=== PATIENT | female | born 1960 | race Caucasian/White ===

== ENCOUNTER → 2017-01-20 | Outpatient (CLI) | payer MEDICARE, MEDICAID | LOC: CARD 11:45 | PROVIDERS: ATTEND Physician Assistant | DX: G89.4 Chronic pain syndrome (principal); M79.604 Pain in right leg; B19.20 Unspecified viral hepatitis C without hepatic coma; Z72.0 Tobacco use | CPT/HCPCS: 93306 ==

== ENCOUNTER → 2017-03-04 | Outpatient (CLI) | payer MEDICARE, MEDICAID ==
[~2017-03-04] MED LIST: CATHETER FLUSH 10 ML SYR IV PRN; CLON0.5T3; Flexeril; GABA-488; HYDR-3820; QUET200T57; REGADENOSON 0.4 MG/5 ML SYR (LEXISCAN) IV ONE; SERT100T8
[2017-03-04 13:27] VITALS: BP 118/79
[2017-03-04 13:30] VITALS: BP 120/75
--- NOTE | 2017-03-05 04:59 | STRESS TEST ---
DATE OF SERVICE: 03/04/2017 LEXISCAN MYOVIEW STRESS TEST REPORT Baseline heart rate is 57. Baseline blood pressure 118/79. Baseline EKG is sinus rhythm with no ischemic changes. SUMMARY: The patient was injected with 10.05 mCi of technetium-99 Myoview and the resting images were obtained. Then, the patient received 0.4 mg of Lexiscan followed by 30.4 mCi of technetium-99 Myoview. Throughout the test, there were no EKG changes. The resting and stressed images were reviewed and compared in the short axis, horizontal long axis and vertical long axis views. Review of the images showed diaphragmatic attenuation affecting the quality of the images. There is no significant ischemia or infarction was seen. SSS is 3, SDS 3, TID value 1.07. On the gated images, the left ventricle appeared to be normal size with normal contractility. Calculated ejection fraction is 71%. CONCLUSION: 1. The patient tolerated Lexiscan well. 2. Diaphragmatic attenuation with typical male pattern. No significant ischemia or infarction on SPECT images. 3. Normal left ventricular size with normal contractility. Calculated ejection fraction is 71%. Job ID: [id number] DocumentID: [id number] Dictated Date: 03/04/2017 16:17:18 Entry Level Civil Engineer Date: 03/04/2017 17:43:07 Dictated By: RAYMOND CORTEZ MD
== END ==
LOC: CARD 12:22
PROVIDERS: ATTEND Physician Assistant
DX: G89.4 Chronic pain syndrome (principal); M79.604 Pain in right leg; B19.20 Unspecified viral hepatitis C without hepatic coma; Z72.0 Tobacco use
CPT/HCPCS: 78452; 93017

== ENCOUNTER 2017-04-22 12:19 | Emergency (ER) | payer MEDICARE, MEDICAID ==
[~2017-04-22] VITALS: Ht 167.6 cm; Wt 81.6 kg
--- OUTSIDE RECORDS SUMMARY | 2017-04-22 12:27 | XMS REPORT ---
Author Author [facility] Organization [facility] Address Unknown Phone Unavailable Care Team Providers Care Escrow Representative Name Role Phone Non-Staff, Physician PCP Unavailable Encounter [id number] Date(s): 02/02/17 - 02/02/[address] [address] Attending Physician: Jeff Owen MD Vital Signs No data available for this section Problem List Condition Effective Dates Status Health Status Informant Anxiety(Confirmed) Active Back pain(Confirmed) Active Chicken pox Active H/O(Confirmed) Depression(Confirmed Active ) Difficulty 2005 Inactive performing bathing activity(Confirmed) Difficulty 2005 Inactive performing dressing activity(Confirmed) Edema bilateral Active lower ext(Confirmed) Hepatitis Active C(Confirmed) Impaired 07/01/06 Inactive mobility(Confirmed) Measles Active H/O(Confirmed) Mumps H/O(Confirmed) Active Sleep apnea Active treated(Confirmed) Tobacco Active patient user(Confirmed)1, 2 1Updated by Discern Expert based on Social History Documentation 2Added by Discern Expert based on Social History Documentation Allergies, Adverse Reactions, Alerts Substance Reaction Severity Status Ceclor Hives Active clindamycin Unknown Active corticosteroids mood swings, Active severe headache nausea vomiting erythromycin Hives Active Levaquin Hives Active Naprosyn Rash Active penicillins Rash Active Hives Swelling Soma Headache Active Ultram Hives Active Medications No Known Medications Results No data available for this section Immunizations Given and Recorded Vaccine Date Status Refusal Reason influenza virus vaccine 05/12/16 Given Procedures No data available for this section Social History No data available for this section Assessment and Plan No data available for this section
--- OUTSIDE RECORDS SUMMARY | 2017-04-22 12:27 | XMS REPORT ---
Author Author [facility] Organization [facility] Address Unknown Phone Unavailable Care Team Providers Care Track Welder Name Role Phone No Family Physician, . PCP Unavailable Encounter [id number] Date(s): 12/22/16 - 12/22/[address] [address] Attending Physician: Jeff Owen MD Vital Signs [...] Mumps H/O(Confirmed) Active Sleep apnea Active treated(Confirmed) Diagnosis Diagnosis Type Effective Dates Health Status Clinical Service Informant Acute URI Discharge 12/22/16 Diagnosis Allergies, Adverse Reactions, Alerts Substance Reaction Severity [...]
--- OUTSIDE RECORDS SUMMARY | 2017-04-22 12:27 | XMS REPORT ---
Author Author [facility] Organization [facility] Address Unknown Phone Unavailable Care Team Providers Care Airplane Cleaner Name Role Phone No Family Physician, . PCP Unavailable Encounter [id number] Date(s): 01/02/17 - 01/02/[address] [address] Attending Physician: Kasia Forrester APRN Vital Signs No data available for this [...] Sleep apnea Active treated(Confirmed) Tobacco Active patient user(Confirmed)1 1Added by Discern Expert based on Social History Documentation Diagnosis Diagnosis Type Effective Dates Health Status Clinical Service Informant Upper respiratory Discharge 01/02/17 infection Diagnosis Persistent cough Discharge 01/02/17 for 3 weeks or Diagnosis longer Allergies, Adverse Reactions, Alerts Substance Reaction Severity [...]
--- OUTSIDE RECORDS SUMMARY | 2017-04-22 12:27 | XMS REPORT | Continuity of Care Document ---
Author Author [employer] Organization [facility] Address Unknown Phone Unavailable Care Team Providers Care Doll Eye Setter Name Role Phone [employer] Unavailable Unavailable Problems Problem Status Onset Date Classification Date Reported Comments Source Spider bite wound (disorder) 2017 Diagnosis 2016 [facility] Chest pain (finding) 2016 Diagnosis 02/07/2017 [facility] Upper respiratory infection (disorder) 01/02/2017 Diagnosis 01/06/2017 [facility] Persistent cough (finding) 01/02/2017 Diagnosis 2016 [facility] Acute upper respiratory infection (disorder) 12/22/2016 Diagnosis 12/26/2016 [facility] Backache with radiation (disorder) 06/23/2016 Diagnosis 06/27/2016 [facility] Low back pain (disorder) 06/2016 Diagnosis 06/27/2016 [facility] Pain in left leg (finding) 06/16/2016 Diagnosis 2015 [facility] Gastroesophageal reflux disease (disorder) 05/12/2016 Diagnosis 05/16/2016 [facility] Anxiety (finding) Active Problem 02/06/2017 [facility], [facility] Backache (finding) Active Problem 02/06/2017 [facility], [facility] Varicella (disorder) Active Problem 02/06/2017 [facility], [facility] Depressive disorder (disorder) Active Problem 02/06/2017 [facility], [facility] Edema (finding) Active Problem 02/06/2017 [facility], [facility] Viral hepatitis C (disorder) Active Problem 02/06/2017 [facility], [facility] Measles (disorder) Active Problem 02/06/2017 [facility], [facility] Mumps (disorder) Active Problem 02/06/2017 [facility], [facility] Sleep apnea (finding) Active Problem 02/06/2017 [facility], [facility] Tobacco user (finding) Active Problem 02/06/2017 Updated by Discern Expert based on Social History Documentation Added by Discern Expert based on Social History Documentation [facility] Medications Medication Details Route Status Patient Instructions Ordering Provider Order Date Source No Known Medications No known medications Active [facility] Allergies, Adverse Reactions, Alerts Substance Category Reaction Severity Reaction type Status Date Reported Comments Source Cefaclor Assertion Hives Drug allergy [facility] Clindamycin Assertion Unknown Drug allergy [facility] corticosteroids Assertion mood swings,, severe headache, nausea, vomiting Drug allergy [facility] Erythromycin Assertion Hives Drug allergy [facility] Levofloxacin Assertion Hives Drug allergy [facility] Naproxen Assertion Cutaneous eruption (morphologic abnormality) Propensity to adverse reactions to substance [facility], [facility] penicillins Assertion Cutaneous eruption (morphologic abnormality), Hives, Swelling Drug allergy [facility], [facility] Carisoprodol Assertion Headache (finding) Drug allergy [facility], [facility] Tramadol Assertion Hives Drug allergy [facility] cefaclor drug allergy Hives Allergy Active [facility] clindamycin drug allergy Unknown (qualifier value) Allergy Active [facility] corticosteroids drug allergy mood swings,, severe headache, nausea, vomiting Allergy [facility] erythromycin drug allergy Hives Allergy [facility] levofloxacin drug allergy Hives Allergy [facility] naproxen propensity to adverse reactions to substance Cutaneous eruption (morphologic abnormality) Adverse Reaction Active [facility] penicillins drug allergy Cutaneous eruption (morphologic abnormality), Hives, Swelling Allergy Active [facility] carisoprodol drug allergy Headache (finding) Allergy Active [facility] tramadol drug allergy Hives Allergy [facility] Immunizations Immunization Date Given Site Status Last Updated Comments Source influenza virus vaccine 05/12/2016 Right Deltoid influenza virus vaccine K[facility] No data available for this section No data available for this section [facility] Results Vital Signs Encounters Location Location Details Encounter Type Encounter Number Reason For Visit Attending Provider ADM Date DC Date Status Source [facility] [id number] Outpatient [id number] Boone Cummins 02/25/2012 [facility] [id number] Clinic ( Outpatient) [id number] Sudeep Turner 08/29/2013 Active [facility] [id number] Clinic ( Outpatient) [id number] Ajith Schneiderkylah 09/01/2013 Active [facility] Cancel/No Show [id number] Ajith Schneiderkylah 04/22/2016 04/22/2016 [facility] [id number] Jeff Owen 05/12/2016 05/13/2016 [facility] [id number] Jeff Owen 06/16/2016 06/17/2016 [facility] [id number] Jeff Owen 06/23/2016 06/24/2016 [facility] [id number] Jeff Owen 12/22/2016 12/23/2016 [facility] [id number] Kasia Forrester 01/02/2017 01/03/2017 [facility] [id number] Emergency [id number] Doug Valle 02/02/2017 02/02/2017 Active [facility] [id number] Jeff Owen 02/02/2017 02/03/2017 [facility] [id number] Jeff Owen 2017 02/21/2017 [facility] Procedures Procedure Code Date Perfomer Comments Source biopsy of pancreas 2015 [facility] No data available for this section [facility] Plan of Care Social History Assessment and Plan Family History Value Date Source Advance Directives Order Name Results Value Date Source
--- OUTSIDE RECORDS SUMMARY | 2017-04-22 12:28 | XMS REPORT ---
Author Author [facility] Address Unknown Phone Unavailable Care Team Providers Care Daycare Manager Name Role Phone Non-Staff, Physician PCP Unavailable Encounter [id number] Date(s): 02/20/17 - 02/20/[address] [address]- Attending Physician: Jeff Owen MD Vital Signs [...] Effective Dates Health Status Clinical Service Informant Spider bite Discharge 02/20/17 Diagnosis Allergies, Adverse Reactions, Alerts Substance Reaction [...]
--- OUTSIDE RECORDS SUMMARY | 2017-04-22 12:28 | XMS REPORT ---
Author Author TANG AMARO Organization [facility] Address [address] [place] [address] Care Team Providers Care Program Services Planner Name Role Phone TANG AMARO Unavailable PROBLEMS Type Condition ICD9-CM Code [id number] Code Onset Dates Condition Status SNOMED Code Problem Chronic hepatitis C without hepatic coma B18.2 Active 225177514 Problem Severe episode of recurrent major depressive disorder, without psychotic features F33.2 Active 58121201 Problem Moderate episode of recurrent major depressive disorder F33.1 Active 945943058 Problem Anxiety F41.9 Active 28716395 Problem CAD in [place] artery I25.10 Active 3285989512937 Problem Marijuana abuse F12.10 Active 52019829 Problem Other chronic pain G89.29 Active 44376250 Problem Generalized anxiety disorder F41.1 Active 25472081 Problem Psychosis, unspecified psychosis type F29 Active 42124379 Problem Chronic pain syndrome G89.4 Active 102922076 ALLERGIES Unknown Allergies SOCIAL HISTORY No smoking Hx information available PLAN OF CARE VITAL SIGNS MEDICATIONS Medication Instructions Dosage Frequency Start Date End Date Duration Status Hydrocodone-Acetaminophen 7.5-325 MG Orally every 6 hrs 1 tablet as needed 6h Jun, 2 weeks Active Clonazepam 1 MG Orally Twice a day 1 tablet 12h May, 14 days Active RESULTS No Results PROCEDURES No Known procedures IMMUNIZATIONS No Known Immunizations
--- OUTSIDE RECORDS SUMMARY | 2017-04-22 12:28 | XMS REPORT ---
Author Author [facility] Organization [facility] Address Unknown Phone Unavailable Care Team Providers Care Upper Cutter Machine Name Role Phone Non-Staff, Physician PCP Unavailable Encounter [id number] Date(s): 02/02/17 - 02/03/17 [facility] [phone] [place] [place] [id number] [facility] [[email or web address]] Discharge Disposition: Home Attending Physician: Doug Valle MD Admitting Physician: Doug Valle MD Referring Physician: Non-Staff, Physician Vital Signs No data available for this [...] Effective Dates Health Status Clinical Service Informant Other chest pain Discharge 02/02/17 Emergency Diagnosis medicine Allergies, Adverse Reactions, Alerts Substance Reaction Severity Status Ceclor Hives Active clindamycin Unknown Active corticosteroids mood swings, Active severe headache nausea vomiting erythromycin Hives Active Levaquin Hives Active Naprosyn Rash Active penicillins Rash Active Hives Swelling Soma Headache Active Ultram Hives Active Medications No data available for this section Results No data available for this section Immunizations Given and Recorded Vaccine Date Status Refusal Reason influenza virus vaccine 05/12/16 Given Procedures No data available for this section Social History No data available for this section Assessment and Plan No data available for this section
--- OUTSIDE RECORDS SUMMARY | 2017-04-22 12:28 | XMS REPORT | Clinical Summary ---
Author Author [facility] Organization [facility] Address Unknown Phone Unavailable Care Team Providers Care Fruit Sprayer Name Role Phone PCP Unavailable Source Comments Some departments are not documenting in the electronic medical record. If you do not see the information that you expected, contact Release of Information in the Health Information Management department at [phone] for further assistance in locating additional records.[facility] Allergies Not on File Current Medications Not on file Active Problems Not on file Social History Tobacco Use Types Packs/Day Years Used Date Never Assessed Sex Assigned at Date Recorded Not on file Last Filed Vital Signs Not on file Plan of Treatment Health Maintenance Due Date Last Done Comments HEPATITIS C SCREENING 1960 PHYSICAL (COMPREHENSIVE) 02/19/1967 EXAM PERTUSSIS VACCINE 02/19/1971 TETANUS VACCINE 02/19/1977 CERVICAL CANCER SCREENING 02/19/1990 BREAST CANCER SCREENING 2000 COLORECTAL CANCER 02/19/2010 SCREENING INFLUENZA VACCINE 04/12/2017 Results Not on filefrom Last 3 Months
--- OUTSIDE RECORDS SUMMARY | 2017-04-22 12:28 | XMS REPORT ---
Author Author TANG AMARO Organization [facility] Address [address] [place] [address] Care Team Providers Care Map Drafter Name Role Phone TANG AMARO Unavailable PROBLEMS Type Condition ICD9-CM Code XUG29-CA Code Onset Dates Condition Status SNOMED Code Problem Chronic hepatitis C without hepatic coma B18.2 Active 717387450 Problem Severe episode of recurrent major depressive disorder, without psychotic features F33.2 Active 22774297 Problem Moderate episode of recurrent major depressive disorder F33.1 Active 909692882 Problem Anxiety F41.9 Active 37322854 Problem CAD in [place] artery I25.10 Active 6879590279482 Problem Marijuana abuse F12.10 Active 98220895 Problem Other chronic pain G89.29 Active 87298435 Problem Generalized anxiety disorder F41.1 Active 16017242 Problem Psychosis, unspecified psychosis type F29 Active 70184235 Problem Chronic pain syndrome G89.4 Active 470107314 ALLERGIES No Information SOCIAL HISTORY Never Assessed PLAN OF CARE VITAL SIGNS MEDICATIONS Medication Instructions Dosage Frequency Start Date End Date Duration Status Hydrocodone-Acetaminophen 10-325 MG Orally every 8 hours 1 tablet as needed 8h 15 Jun, 2016 3 Oct, 2016 2 weeks Active RESULTS No Results PROCEDURES No Known procedures IMMUNIZATIONS No Known Immunizations MEDICAL (GENERAL) HISTORY Type Description Date Medical History Heart disease Medical History Pancreatic mass Medical History COPD Medical History Hepatitis C Medical History Arthritis Medical History osteoporsis Medical History Brain Tumor Surgical History back surgery 4 times Surgical History brain surgery for tumor Surgical History shoulder surgery Surgical History knee surgery Surgical History cyst removal Surgical History c section Surgical History biopsy on pancreas 05/21/16 Surgical History Hysterectomy Surgical History oophrectomy Surgical History adhesion surgery Surgical History Tonsilectomy and Adnoidectomy Surgical History [place] Teeth Surgical History All teeth pulled for dentures Surgical History Right rotator cuff surgery Hospitalization History child Hospitalization History surgeries listed above Hospitalization History Mulitple fractures on bilateral legs Hospitalization History Right arm and wrist fracture Hospitalization History Broken Ribs
--- OUTSIDE RECORDS SUMMARY | 2017-04-22 12:28 | XMS REPORT ---
Author Author TANG AMARO Organization [facility] Address [address] [place] [address] Care Team Providers Care Security Police Officer Name Role Phone TANG AMARO Unavailable PROBLEMS Type Condition ICD9-CM Code KAN55-SY Code Onset Dates Condition Status SNOMED Code Problem Anxiety F41.9 Active 92347197 Problem Generalized anxiety disorder F41.1 Active 67272797 Problem Moderate episode of recurrent major depressive disorder F33.1 Active 181194696 Problem Chronic hepatitis C without hepatic coma B18.2 Active 891033758 Problem CAD in [place] artery I25.10 Active 1808170273349 Problem Marijuana abuse F12.10 Active 75758102 Problem Other chronic pain G89.29 Active 07384541 Problem Severe episode of recurrent major depressive disorder, without psychotic features F33.2 Active 80109253 Problem Psychosis, unspecified psychosis type F29 Active 02461705 Problem Chronic pain syndrome G89.4 Active 667254682 ALLERGIES Unknown Allergies SOCIAL HISTORY No smoking Hx information available PLAN OF CARE VITAL SIGNS MEDICATIONS Medication Instructions Dosage Frequency Start Date End Date Duration Status Clonazepam 1 MG Orally Twice a day 1 tablet 12h May, 14 days Active Hydrocodone-Acetaminophen 7.5-325 MG Orally every 6 hrs 1 tablet as needed 6h Jun, 2 weeks Active RESULTS No Results PROCEDURES No Known procedures IMMUNIZATIONS No Known Immunizations
--- OUTSIDE RECORDS SUMMARY | 2017-04-22 12:28 | XMS REPORT ---
Author Author TANG AMARO Organization [facility] Address [address] [place] [address] Care Team Providers Care Forge Helper Name Role Phone TANG AMARO Unavailable PROBLEMS Type Condition ICD9-CM Code GAB26-TR Code Onset Dates Condition Status SNOMED Code Problem Chronic hepatitis C without hepatic coma B18.2 Active 858936293 Problem Severe episode of recurrent major depressive disorder, without psychotic features F33.2 Active 06260046 Problem Moderate episode of recurrent major depressive disorder F33.1 Active 882540694 Problem Anxiety F41.9 Active 15605485 Problem CAD in [place] artery I25.10 Active 6858972874340 Problem Marijuana abuse F12.10 Active 14959149 Problem Other chronic pain G89.29 Active 12299195 Problem Generalized anxiety disorder F41.1 Active 21764254 Problem Psychosis, unspecified psychosis type F29 Active 15285526 Problem Chronic pain syndrome G89.4 Active 342876655 ALLERGIES No Information SOCIAL HISTORY Never Assessed PLAN OF CARE VITAL SIGNS MEDICATIONS Medication Instructions Dosage Frequency Start Date End Date Duration Status Zanaflex 2 MG Orally twice a day 1 capsule as needed 12h 15 Sep, 2016 Active RESULTS No Results PROCEDURES No Known [...] Surgical History Tonsilectomy and Adnoidectomy Surgical History [place] Teeth Surgical History All teeth pulled for dentures Surgical History Right rotator cuff surgery Hospitalization History child Hospitalization History surgeries listed above Hospitalization History Mulitple fractures on bilateral legs Hospitalization History Right arm and wrist fracture Hospitalization History Broken Ribs
--- OUTSIDE RECORDS SUMMARY | 2017-04-22 12:28 | XMS REPORT ---
Author Author TANG AMARO Organization [facility] Address [address] [place] [address] Care Team Providers Care Fire Department Battalion Chief Name Role Phone TANG AMARO Unavailable PROBLEMS Type Condition ICD9-CM Code VCP94-VN Code Onset Dates Condition Status SNOMED Code Problem Chronic hepatitis C without hepatic coma B18.2 Active 114990055 Problem Severe episode of recurrent major depressive disorder, without psychotic features F33.2 Active 12883372 Problem Moderate episode of recurrent major depressive disorder F33.1 Active 379740524 Problem Anxiety F41.9 Active 28590382 Problem CAD in [place] artery I25.10 Active 5762791559311 Problem Marijuana abuse F12.10 Active 27491182 Problem Other chronic pain G89.29 Active 58360319 Problem Generalized anxiety disorder F41.1 Active 40236044 Problem Psychosis, unspecified psychosis type F29 Active 82022294 Problem Chronic pain syndrome G89.4 Active 094607960 ALLERGIES No Information SOCIAL HISTORY Never Assessed PLAN OF CARE VITAL SIGNS MEDICATIONS Medication Instructions Dosage Frequency Start Date End Date Duration Status Clonazepam 1 MG Orally Twice a day 1 tablet 12h 15 May, 2016 14 days Active RESULTS No Results PROCEDURES [...] Surgical History Tonsilectomy and Adnoidectomy Surgical History [place] Teeth Surgical History All teeth pulled for dentures Surgical History Right rotator cuff surgery Hospitalization History child Hospitalization History surgeries listed above Hospitalization History Mulitple fractures on bilateral legs Hospitalization History Right arm and wrist fracture Hospitalization History Broken Ribs
--- OUTSIDE RECORDS SUMMARY | 2017-04-22 12:29 | XMS REPORT ---
Author TANG Light Organization [employer] Address Unknown Phone Unavailable Care Team Providers Care Sports Clerk Name Role Phone TANG AMARO CP Unavailable Allergies, Adverse Reactions, Alerts Substance Reaction Event Type Penicillin V Potassium hives Drug Allergy Levaquin hives Drug Allergy Erythrocin hives Drug Allergy Problems Problem Type Condition Code Onset Dates Condition Status Problem Mild episode of recurrent major depressive disorder F33.0 Active Problem Chronic hepatitis C without hepatic coma B18.2 Active Problem Anxiety F41.9 Active Assessment Chronic hepatitis C without hepatic coma B18.2 Active Assessment Tobacco abuse Z72.0 Active Assessment Anxiety F41.9 Active Assessment Mild episode of recurrent major depressive disorder F33.0 Active Medications Medication Code System Code Instructions Start Date End Date Status Dosage Prozac [facility] [address]-76 20 MG Orally Once a day May 27, 2016 1 capsule in the morning Carafate [facility] [address]-63 1 GM Orally 4 1 tablet on an empty stomach Aspir-81 [facility] [address]-32 81 MG Orally Once a day 1 tablet Clonazepam [facility] [address]-19 0.5 MG Orally Twice a day May 27, 2016 1 tablet Procedures Procedure Coding System Code Date Office Visit, New Pt., Level 3 CPT-4 35145 May 27, 2016 Vital Signs Date/Time: May 27, 2016 Cardiac Monitoring Heart Rate 84 bpm Weight 173.5 lbs Height 66 in BMI 28.00 Index Blood Pressure Diastolic 84 mmHg Blood Pressure Systolic 138 mmHg Results No Known Results Summary Purpose [employer] Submission
--- OUTSIDE RECORDS SUMMARY | 2017-04-22 12:29 | XMS REPORT ---
Author Author TANG AMARO Organization [facility] Address [address] [place] [address] Care Team Providers Care Carpet Weaver Name Role Phone TANG AMARO Unavailable PROBLEMS Type Condition ICD9-CM Code [id number] Code Onset Dates Condition Status SNOMED Code Problem Chronic hepatitis C without hepatic coma B18.2 Active 122021776 Problem Severe episode of recurrent major depressive disorder, without psychotic features F33.2 Active 49709372 Problem Moderate episode of recurrent major depressive disorder F33.1 Active 365301619 Problem Anxiety F41.9 Active 22464773 Problem CAD in [place] artery I25.10 Active 7690456443304 Problem Marijuana abuse F12.10 Active 29570816 Problem Other chronic pain G89.29 Active 25228282 Problem Generalized anxiety disorder F41.1 Active 19546712 Problem Psychosis, unspecified psychosis type F29 Active 53925099 Problem Chronic pain syndrome G89.4 Active 276338868 ALLERGIES Unknown Allergies SOCIAL HISTORY No smoking Hx information available PLAN OF CARE VITAL SIGNS MEDICATIONS Unknown Medications RESULTS No Results PROCEDURES No Known procedures IMMUNIZATIONS No Known Immunizations
--- OUTSIDE RECORDS SUMMARY | 2017-04-22 12:29 | XMS REPORT ---
Author Author TANG AMARO Organization [facility] [place] Address [address] [place] [address] Care Team Providers Care Metal Tile Lather Name Role Phone TANG AMARO Unavailable PROBLEMS Type Condition ICD9-CM Code AUA45-PR Code Onset Dates Condition Status SNOMED Code Problem Chronic hepatitis C without hepatic coma B18.2 Active 694199189 Problem Severe episode of recurrent major depressive disorder, without psychotic features F33.2 Active 72849526 Problem Moderate episode of recurrent major depressive disorder F33.1 Active 989846362 Problem Anxiety F41.9 Active 48560634 Problem CAD in [place] artery I25.10 Active 9280503747168 Problem Marijuana abuse F12.10 Active 06111896 Problem Other chronic pain G89.29 Active 33543015 Problem Generalized anxiety disorder F41.1 Active 00471185 Problem Psychosis, unspecified psychosis type F29 Active 94579078 Problem Chronic pain syndrome G89.4 Active 991153949 ALLERGIES No Information SOCIAL HISTORY Never Assessed [...] Surgical History Tonsilectomy and Adnoidectomy Surgical History [place] Teeth Surgical History All teeth pulled for dentures Surgical History Right rotator cuff surgery Hospitalization History child Hospitalization History surgeries listed above Hospitalization History Mulitple fractures on bilateral legs Hospitalization History Right arm and wrist fracture Hospitalization History Broken Ribs
--- OUTSIDE RECORDS SUMMARY | 2017-04-22 12:29 | XMS REPORT ---
Author Author TANG AMARO Organization [facility] Address [address] [place] [address] Care Team Providers Care Director Medical Science Name Role Phone TANG AMARO Unavailable PROBLEMS Type Condition ICD9-CM Code XUP76-OS Code Onset Dates Condition Status SNOMED Code Problem Chronic hepatitis C without hepatic coma B18.2 Active 591771662 Problem Severe episode of recurrent major depressive disorder, without psychotic features F33.2 Active 05636779 Problem Moderate episode of recurrent major depressive disorder F33.1 Active 170871122 Problem Anxiety F41.9 Active 71827988 Problem CAD in [place] artery I25.10 Active 1478217010119 Problem Marijuana abuse F12.10 Active 87917389 Problem Other chronic pain G89.29 Active 95400906 Problem Generalized anxiety disorder F41.1 Active 05858992 Problem Psychosis, unspecified psychosis type F29 Active 40629366 Problem Chronic pain syndrome G89.4 Active 604393986 ALLERGIES No Information SOCIAL HISTORY Never Assessed PLAN OF CARE VITAL SIGNS MEDICATIONS Medication Instructions Dosage Frequency Start Date End Date Duration Status Hydrocodone-Acetaminophen 10-325 MG Orally 8 hours 1 tablet as needed Jun, Sep, 2 weeks Active RESULTS No Results PROCEDURES [...] Surgical History Tonsilectomy and Adnoidectomy Surgical History [place] Teeth Surgical History All teeth pulled for dentures Surgical History Right rotator cuff surgery Hospitalization History child Hospitalization History surgeries listed above Hospitalization History Mulitple fractures on bilateral legs Hospitalization History Right arm and wrist fracture Hospitalization History Broken Ribs
--- OUTSIDE RECORDS SUMMARY | 2017-04-22 12:29 | XMS REPORT ---
Author Author TANG AMARO Organization [facility] Address [address] [place] [address] Care Team Providers Care Probation Manager Name Role Phone TANG AMARO Unavailable PROBLEMS Type Condition ICD9-CM Code EPR95-XB Code Onset Dates Condition Status SNOMED Code Problem Anxiety F41.9 Active 43459314 Problem Generalized anxiety disorder F41.1 Active 56645993 Problem Moderate episode of recurrent major depressive disorder F33.1 Active 295326159 Problem Chronic hepatitis C without hepatic coma B18.2 Active 363428072 Problem CAD in [place] artery I25.10 Active 2949176882477 Problem Marijuana abuse F12.10 Active 19290747 Problem Other chronic pain G89.29 Active 50906356 Problem Severe episode of recurrent major depressive disorder, without psychotic features F33.2 Active 01803777 Problem Psychosis, unspecified psychosis type F29 Active 88634900 Problem Chronic pain syndrome G89.4 Active 729519556 ALLERGIES Unknown Allergies SOCIAL HISTORY No smoking Hx information available PLAN OF CARE VITAL SIGNS MEDICATIONS Unknown Medications RESULTS No Results PROCEDURES No Known procedures IMMUNIZATIONS No Known Immunizations
--- OUTSIDE RECORDS SUMMARY | 2017-04-22 12:29 | XMS REPORT ---
Author TANG Light Organization [employer] Address Unknown Phone Unavailable Care Team Providers Care Hide Buffer Name Role Phone TANG AMARO CP Unavailable Allergies No Known Allergies Problems Problem Type Condition Code Onset Dates Condition Status Problem Anxiety F41.9 Active Problem Mild episode of recurrent major depressive disorder F33.0 Active Problem Other chronic pain G89.29 Active Problem Chronic hepatitis C without hepatic coma B18.2 Active Medications Medication Code System Code Instructions Start Date End Date Status Dosage Clonazepam [facility] [address]-24 1 MG Orally Twice a day May 27, 2016 1 tablet Results No Known Results Summary Purpose [employer] Submission
--- OUTSIDE RECORDS SUMMARY | 2017-04-22 12:29 | XMS REPORT ---
Author RAO Cano [facility] [employer] Address Unknown Phone Unavailable Care Team Providers Care Sheet Taker Name Role Phone RAO ROBERTS CP Unavailable Allergies, Adverse Reactions, Alerts Substance Reaction Event Type Tetracycline HCl hives Drug Allergy Penicillin V Potassium hives Drug Allergy Levaquin hives Drug Allergy Keflex hives Drug Allergy Erythrocin hives Drug Allergy Ultram hives Non Drug Allergy Problems Problem Type Condition Code Onset Dates Condition Status Problem Anxiety F41.9 Active Problem Mild episode of recurrent major depressive disorder F33.0 Active Problem Other chronic pain G89.29 Active Assessment Other chronic pain G89.29 Active Problem Chronic hepatitis C without hepatic coma B18.2 Active Assessment Pain in right hip M25.551 Active Medications Medication Code System Code Instructions Start Date End Date Status Dosage Clonazepam [facility] [address]-18 1 MG Orally Twice a day May 27, 2016 1 tablet Aspir-81 [facility] [address]-00 81 MG Orally Once a day 1 tablet Ibuprofen [facility] [address]-99 800 MG Orally Three times a day Jun 06, 2016 Jul 06, 2016 1 tablet as needed Prozac [facility] [address]-51 20 MG Orally Once a day May 27, 2016 1 capsule in the morning Zanaflex [facility] [address]-29 2 MG Orally Three times a day Jun 06, 2016 Jun 16, 2016 1 capsule as needed Carafate [facility] [address]-98 1 GM Orally 4 1 tablet on an empty stomach Procedures Procedure Coding System Code Date Office Visit, Est Pt., Level 3 CPT-4 64581 Jun 06, 2016 Vital Signs Date/Time: Jun 06, 2016 Cardiac Monitoring Heart Rate 70 bpm Weight 170.6 lbs Height 66 in BMI 27.53 Index Blood Pressure Diastolic 68 mmHg Blood Pressure Systolic 136 mmHg Results No Known Results Summary Purpose [employer]Works Submission
--- OUTSIDE RECORDS SUMMARY | 2017-04-22 12:29 | XMS REPORT ---
Author Author TANG AMARO Organization [facility] Address [address] [place] [address] Care Team Providers Care Puzzle Assembler Name Role Phone TANG AMARO Unavailable PROBLEMS Type Condition ICD9-CM Code XUK54-VL Code Onset Dates Condition Status SNOMED Code Problem Anxiety F41.9 Active 42176045 Problem Generalized anxiety disorder F41.1 Active 17323683 Problem Moderate episode of recurrent major depressive disorder F33.1 Active 416093580 Problem Chronic hepatitis C without hepatic coma B18.2 Active 695235254 Problem CAD in [place] artery I25.10 Active 9856265473903 Problem Marijuana abuse F12.10 Active 15939306 Problem Other chronic pain G89.29 Active 37547766 Problem Severe episode of recurrent major depressive disorder, without psychotic features F33.2 Active 21940225 Problem Psychosis, unspecified psychosis type F29 Active 87798806 Problem Chronic pain syndrome G89.4 Active 240748381 ALLERGIES Unknown Allergies SOCIAL HISTORY No smoking Hx information available PLAN OF CARE VITAL SIGNS MEDICATIONS Unknown Medications RESULTS No Results PROCEDURES No Known procedures IMMUNIZATIONS No Known Immunizations
--- OUTSIDE RECORDS SUMMARY | 2017-04-22 12:29 | XMS REPORT ---
Author Author TANG AMARO [facility] Address [address] [place] [address] Care Team Providers Care Bilingual Office Assistant Name Role Phone TANG AMARO Unavailable PROBLEMS Type Condition ICD9-CM Code ZSU47-BQ Code Onset Dates Condition Status SNOMED Code Problem Other chronic pain G89.29 Active 78592594 Problem Anxiety F41.9 Active 91120352 Problem Mild episode of recurrent major depressive disorder F33.0 Active 009438920 Problem Chronic hepatitis C without hepatic coma B18.2 Active 878470833 ALLERGIES Unknown Allergies SOCIAL HISTORY No smoking Hx information available PLAN OF CARE VITAL SIGNS MEDICATIONS Unknown Medications RESULTS No Results PROCEDURES No Known procedures IMMUNIZATIONS No Known Immunizations
--- OUTSIDE RECORDS SUMMARY | 2017-04-22 12:29 | XMS REPORT ---
Author TANG Light Organization [employer] Address Unknown Phone Unavailable Care Team Providers Care Supervisor Tumbling And Rolling Name Role Phone TANG AMARO CP Unavailable [...] B18.2 Active Problem Anxiety F41.9 Active Assessment Mild episode of recurrent major depressive disorder F33.0 Active Assessment Physical debility R53.81 Active Assessment Hip pain, right M25.551 Active Medications Medication Code System Code Instructions Start Date End Date Status Dosage Aspir-81 [facility] [address]-50 81 MG Orally Once a day 1 tablet Prozac [facility] [address]-00 20 MG Orally Once a day May 27, 2016 1 capsule in the morning Clonazepam [facility] [address]-64 1 MG Orally Twice a day May 27, 2016 1 tablet Carafate [facility] [address]-81 1 GM Orally 4 1 tablet on an empty stomach Procedures Procedure Coding System Code Date Office Visit, Est Pt., Level 4 CPT-4 67514 Jun 02, 2016 Vital Signs Date/Time: Jun 02, 2016 Cardiac Monitoring Heart Rate 66 bpm Weight 175.6 lbs Height 66 in BMI 28.34 Index Blood Pressure Diastolic 64 mmHg Blood Pressure Systolic 110 mmHg Results No Known Results Summary Purpose [employer]Works Submission
--- OUTSIDE RECORDS SUMMARY | 2017-04-22 12:29 | XMS REPORT ---
Author TANG Light Organization [employer] Address Unknown Phone Unavailable Care Team Providers Care Top Lift Cutter Name Role Phone TANG AMARO CP Unavailable Allergies No Known Allergies Problems Problem Type Condition Code Onset Dates Condition Status Problem Mild episode of recurrent major depressive disorder F33.0 Active Problem Chronic hepatitis C without hepatic coma B18.2 Active Problem Anxiety F41.9 Active Medications No Known Medications Results No Known Results Summary Purpose [employer] Submission
--- OUTSIDE RECORDS SUMMARY | 2017-04-22 12:29 | XMS REPORT ---
Author Author TANG AMARO Organization [facility] Address [address] [place] [address] Care Team Providers Care School Admissions Representative Name Role Phone TANG AMARO Unavailable PROBLEMS Type Condition ICD9-CM Code UBO84-CR Code Onset Dates Condition Status SNOMED Code Problem Chronic hepatitis C without hepatic coma B18.2 Active 841666572 Problem Severe episode of recurrent major depressive disorder, without psychotic features F33.2 Active 48117585 Problem Moderate episode of recurrent major depressive disorder F33.1 Active 530631327 Problem Anxiety F41.9 Active 03662223 Problem CAD in [place] artery I25.10 Active 1797641440243 Problem Marijuana abuse F12.10 Active 47184155 Problem Other chronic pain G89.29 Active 99931132 Problem Generalized anxiety disorder F41.1 Active 54392111 Problem Psychosis, unspecified psychosis type F29 Active 77356619 Problem Chronic pain syndrome G89.4 Active 483082129 ALLERGIES Substance Reaction Event Type Date Status Tetracycline HCl hives Drug Allergy Aug, Active PredniSONE migraine Drug Allergy Aug, Active Penicillin V Potassium hives Drug Allergy Aug, Active Levaquin hives Drug Allergy Aug, Active Keflex hives Drug Allergy Aug, Active Erythrocin hives Drug Allergy Aug, Active Ultram hives Non Drug Allergy Aug, Active SOCIAL HISTORY Never Assessed PLAN OF CARE Activity Details Follow Up 4 Weeks with Melody f/u pain Reason: VITAL SIGNS Height 66 in 2016-08-18 Weight 181.3 lbs 2016-08-18 Temperature 98.3 degrees Fahrenheit 2016-08-18 Heart Rate 84 bpm 2016-08-18 Respiratory Rate 20 2016-08-18 BMI 29.26 kg/m2 2016-08-18 Blood pressure systolic 120 mmHg 2016-08-18 Blood pressure diastolic 78 mmHg 2016-08-18 MEDICATIONS Medication Instructions Dosage Frequency Start Date End Date Duration Status Celexa 20 mg Orally Once a day 2 tablet 24h Jun, 30 day(s) Active Carafate 1 GM Orally 4 1 tablet on an empty stomach Active Clonazepam 1 MG Orally Twice a day 1 tablet 12h May, 14 days Active Hydrocodone-Acetaminophen 10-325 MG Orally 8 hours 1 tablet as needed Jun, Aug, 2 weeks Active Gabapentin 600 MG Orally Three times a day 1 tablet 8h Active Aspir-81 81 MG Orally Once a day 1 tablet 24h Active RESULTS No Results PROCEDURES Procedure Date Ordered Result Body Site [facility] VISIT ESTABLISHED PATIENT Aug 18, 2016 IMMUNIZATIONS No Known Immunizations MEDICAL (GENERAL) HISTORY [...] Surgical History Tonsilectomy and Adnoidectomy Surgical History [place] Teeth Surgical History All teeth pulled for dentures Surgical History Right rotator cuff surgery Hospitalization History child Hospitalization History surgeries listed above Hospitalization History Mulitple fractures on bilateral legs Hospitalization History Right arm and wrist fracture Hospitalization History Broken Ribs
--- OUTSIDE RECORDS SUMMARY | 2017-04-22 12:29 | XMS REPORT ---
Author Author TANG AMARO Organization [facility] Address [address] [place] [address] Care Team Providers Care Carpenter Packing Name Role Phone TANG AMARO Unavailable PROBLEMS Type Condition ICD9-CM Code [id number] Code Onset Dates Condition Status SNOMED Code Problem Chronic hepatitis C without hepatic coma B18.2 Active 598539759 Problem Severe episode of recurrent major depressive disorder, without psychotic features F33.2 Active 31907957 Problem Moderate episode of recurrent major depressive disorder F33.1 Active 435561340 Problem Anxiety F41.9 Active 39941812 Problem CAD in [place] artery I25.10 Active 2439289514960 Problem Marijuana abuse F12.10 Active 98037285 Problem Other chronic pain G89.29 Active 14553187 Problem Generalized anxiety disorder F41.1 Active 15690765 Problem Psychosis, unspecified psychosis type F29 Active 29011191 Problem Chronic pain syndrome G89.4 Active 797035642 ALLERGIES Unknown Allergies SOCIAL HISTORY No smoking Hx information available PLAN OF CARE VITAL SIGNS MEDICATIONS Unknown Medications RESULTS No Results PROCEDURES No Known procedures IMMUNIZATIONS No Known Immunizations
--- OUTSIDE RECORDS SUMMARY | 2017-04-22 12:29 | XMS REPORT ---
Author Author NIDIA MOHAN [facility] Address [address] [place] [address] Care Team Providers Care Rolled Seat Trimmer Name Role Phone NIDIA MOHAN Unavailable PROBLEMS Type Condition ICD9-CM Code SMF41-LM Code Onset Dates Condition Status SNOMED Code Problem Anxiety F41.9 Active 17688563 Problem Generalized anxiety disorder F41.1 Active 64802774 Problem Moderate episode of recurrent major depressive disorder F33.1 Active 911258382 Problem Chronic hepatitis C without hepatic coma B18.2 Active 864478188 Problem CAD in [place] artery I25.10 Active 2504159473927 Problem Marijuana abuse F12.10 Active 64134283 Problem Other chronic pain G89.29 Active 89426060 Problem Severe episode of recurrent major depressive disorder, without psychotic features F33.2 Active 93856049 Problem Psychosis, unspecified psychosis type F29 Active 40764865 Problem Chronic pain syndrome G89.4 Active 703067734 ALLERGIES Unknown Allergies SOCIAL HISTORY No smoking Hx information available PLAN OF CARE Activity Details Follow Up 3 Weeks Reason:BH F/U VITAL SIGNS MEDICATIONS Medication Instructions Dosage Frequency Start Date End Date Duration Status Carafate 1 GM Orally 4 1 tablet on an empty stomach Active Hydrocodone-Acetaminophen 7.5-325 MG Orally every 6 hrs 1 tablet as needed 6h Jun, Jun, 2 weeks Active Aspir-81 81 MG Orally Once a day 1 tablet 24h Active Ibuprofen 800 MG Orally Three times a day 1 tablet as needed 8h May, Jun, 30 day(s) Active Celexa 20 MG Orally Once a day 1 tablet 24h Jun, 30 day(s) Active Clonazepam 1 MG Orally Twice a day 1 tablet 12h May, 14 days Active RESULTS No Results PROCEDURES Procedure Date Ordered Related Diagnosis Body Site [facility] VISIT MENTAL HEALTH ESTAB PT Jun 26, 2016 Psych diagnostic evaluation, established patient Jun 26, 2016 IMMUNIZATIONS No Known Immunizations
--- OUTSIDE RECORDS SUMMARY | 2017-04-22 12:30 | XMS REPORT ---
Author Author TANG AMARO Organization [facility] Address [address] [place] [address] Care Team Providers Care Supervisor Of Way Name Role Phone TANG AMARO Unavailable PROBLEMS Type Condition ICD9-CM Code LVV26-UB Code Onset Dates Condition Status SNOMED Code Problem Anxiety F41.9 Active 07274400 Problem Generalized anxiety disorder F41.1 Active 28990610 Problem Moderate episode of recurrent major depressive disorder F33.1 Active 640624854 Problem Chronic hepatitis C without hepatic coma B18.2 Active 537501832 Problem CAD in [place] artery I25.10 Active 6392624592405 Problem Marijuana abuse F12.10 Active 94890218 Problem Other chronic pain G89.29 Active 28246743 Problem Severe episode of recurrent major depressive disorder, without psychotic features F33.2 Active 63436649 Problem Psychosis, unspecified psychosis type F29 Active 56819109 Problem Chronic pain syndrome G89.4 Active 139873246 ALLERGIES Unknown Allergies SOCIAL HISTORY No smoking Hx information available PLAN OF CARE VITAL SIGNS MEDICATIONS Unknown Medications RESULTS No Results PROCEDURES No Known procedures IMMUNIZATIONS No Known Immunizations
--- OUTSIDE RECORDS SUMMARY | 2017-04-22 12:30 | XMS REPORT ---
Author Author TANG AMARO Organization [employer] Address Unknown Phone Unavailable Care Team Providers Care Deliverer Outside Name Role Phone TANG AMARO CP Unavailable Allergies, Adverse Reactions, Alerts Substance Reaction Event Type Penicillin V Potassium hives Drug Allergy Levaquin hives Drug Allergy Erythrocin hives Drug Allergy Problems No Known Problems Medications Medication Code System Code Instructions Start Date End Date Status Dosage Aspir-81 [facility] [address]-42 81 MG Orally Once a day 1 tablet Carafate [facility] [address]-51 1 GM Orally 4 1 tablet on an empty stomach Results No Known Results Summary Purpose [employer]ClinicalWorks Submission
--- OUTSIDE RECORDS SUMMARY | 2017-04-22 12:30 | XMS REPORT ---
Author Author TANG AMARO Organization [facility] Address [address] [place] [address] Care Team Providers Care Senior Data Integration Developer Name Role Phone TANG AMARO Unavailable PROBLEMS Type Condition ICD9-CM Code ICF00-KP Code Onset Dates Condition Status SNOMED Code Problem Chronic hepatitis C without hepatic coma B18.2 Active 925777425 Problem Severe episode of recurrent major depressive disorder, without psychotic features F33.2 Active 85956310 Problem Moderate episode of recurrent major depressive disorder F33.1 Active 099612384 Problem Anxiety F41.9 Active 02711482 Problem CAD in [place] artery I25.10 Active 2473124135756 Problem Marijuana abuse F12.10 Active 51063994 Problem Other chronic pain G89.29 Active 27802970 Problem Generalized anxiety disorder F41.1 Active 31209494 Problem Psychosis, unspecified psychosis type F29 Active 86021535 Problem Chronic pain syndrome G89.4 Active 932134272 ALLERGIES No Information SOCIAL HISTORY Never Assessed PLAN OF CARE VITAL SIGNS MEDICATIONS Medication Instructions Dosage Frequency Start Date End Date Duration Status Clonazepam 1 MG Orally Twice a day 1 tablet 12h 15 May, 2016 14 days Active Celexa 20 mg Orally Once a day 2 tablet 24h 15 Jun, 2016 30 day(s) Active RESULTS No Results PROCEDURES No Known [...] Surgical History Tonsilectomy and Adnoidectomy Surgical History [place] Teeth Surgical History All teeth pulled for dentures Surgical History Right rotator cuff surgery Hospitalization History child Hospitalization History surgeries listed above Hospitalization History Mulitple fractures on bilateral legs Hospitalization History Right arm and wrist fracture Hospitalization History Broken Ribs
--- OUTSIDE RECORDS SUMMARY | 2017-04-22 12:30 | XMS REPORT ---
Author Author TANG AMARO Organization [facility] Address [address] [place] [address] Care Team Providers Care Creative Guru Name Role Phone TANG AMARO Unavailable PROBLEMS Type Condition ICD9-CM Code [id number] Code Onset Dates Condition Status SNOMED Code Problem Chronic hepatitis C without hepatic coma B18.2 Active 058268369 Problem Severe episode of recurrent major depressive disorder, without psychotic features F33.2 Active 36922442 Problem Moderate episode of recurrent major depressive disorder F33.1 Active 541244834 Problem Anxiety F41.9 Active 63343755 Problem CAD in [place] artery I25.10 Active 8357268493061 Problem Marijuana abuse F12.10 Active 77163129 Problem Other chronic pain G89.29 Active 15736814 Problem Generalized anxiety disorder F41.1 Active 33785817 Problem Psychosis, unspecified psychosis type F29 Active 53290348 Problem Chronic pain syndrome G89.4 Active 263169352 ALLERGIES No Information SOCIAL HISTORY Never Assessed PLAN OF CARE VITAL SIGNS MEDICATIONS Unknown [...] Surgical History Tonsilectomy and Adnoidectomy Surgical History Bode Teeth Surgical History All teeth pulled for dentures Surgical History Right rotator cuff surgery Hospitalization History child Hospitalization History surgeries listed above Hospitalization History Mulitple fractures on bilateral legs Hospitalization History Right arm and wrist fracture Hospitalization History Broken Ribs
--- OUTSIDE RECORDS SUMMARY | 2017-04-22 12:30 | XMS REPORT ---
Author Author TANG OLIVER Organization [facility] Address [address] [place] [address] Care Team Providers Care Territory Sales Professional Name Role Phone TANG OLIVER Unavailable PROBLEMS Type Condition ICD9-CM Code [id number] Code Onset Dates Condition Status SNOMED Code Problem Chronic hepatitis C without hepatic coma B18.2 Active 475491675 Problem Severe episode of recurrent major depressive disorder, without psychotic features F33.2 Active 24953302 Problem Moderate episode of recurrent major depressive disorder F33.1 Active 996152046 Problem Anxiety F41.9 Active 00679703 Problem CAD in [place] artery I25.10 Active 7417976158997 Problem Marijuana abuse F12.10 Active 69238448 Problem Other chronic pain G89.29 Active 89613494 Problem Generalized anxiety disorder F41.1 Active 90639217 Problem Psychosis, unspecified psychosis type F29 Active 22988662 Problem Chronic pain syndrome G89.4 Active 598530476 ALLERGIES Substance Reaction Event Type Date Status Tetracycline HCl hives Drug Allergy Jul, Active PredniSONE migraine Drug Allergy Jul, Active Penicillin V Potassium hives Drug Allergy Jul, Active Levaquin hives Drug Allergy Jul, Active Keflex hives Drug Allergy Jul, Active Erythrocin hives Drug Allergy Jul, Active Ultram hives Non Drug Allergy Jul, Active SOCIAL HISTORY No smoking Hx information available PLAN OF CARE Activity Details Follow Up 1 month with ale Oliver f/u Reason: VITAL SIGNS Height 66 in 2016-07-21 Weight 175 lbs 2016-07-21 Temperature 98.3 degrees Fahrenheit 2016-07-21 Heart Rate 90 bpm 2016-07-21 Respiratory Rate 20 2016-07-21 BMI 28.24 kg/m2 2016-07-21 Blood pressure systolic 130 mmHg 2016-07-21 Blood pressure diastolic 86 mmHg 2016-07-21 MEDICATIONS Medication Instructions Dosage Frequency Start Date End Date Duration Status Celexa 40 MG Orally Once a day 1 tablet 24h Jun, 30 day(s) Active Hydrocodone-Acetaminophen 7.5-325 MG Orally every 6 hrs 1 tablet as needed 6h Jun, 2 weeks Active Clonazepam 1 MG Orally Twice a day 1 tablet 12h May, 14 days Active Aspir-81 81 MG Orally Once a day 1 tablet 24h Active Carafate 1 GM Orally 4 1 tablet on an empty stomach Active RESULTS No Results PROCEDURES Procedure Date Ordered Related Diagnosis Body Site REPLACED BY [facility] VISIT ESTABLISHED PATIENT Jul 21, 2016 Office Visit, Est Pt., Level 4 Jul 21, 2016 IMMUNIZATIONS No Known Immunizations
--- OUTSIDE RECORDS SUMMARY | 2017-04-22 12:30 | XMS REPORT ---
Author Author TANG AMARO [facility] Address [address] [place] [address] Care Team Providers Care Sales Route Driver Helper Name Role Phone TANG AMARO Unavailable PROBLEMS Type Condition ICD9-CM Code [id number] Code Onset Dates Condition Status SNOMED Code Problem Other chronic pain G89.29 Active 15285991 Problem Anxiety F41.9 Active 40796988 Problem Mild episode of recurrent major depressive disorder F33.0 Active 325665592 Problem Chronic hepatitis C without hepatic coma B18.2 Active 786813475 ALLERGIES Unknown Allergies SOCIAL HISTORY No smoking Hx information available PLAN OF CARE VITAL SIGNS MEDICATIONS Unknown Medications RESULTS No Results PROCEDURES No Known procedures IMMUNIZATIONS No Known Immunizations
--- OUTSIDE RECORDS SUMMARY | 2017-04-22 12:30 | XMS REPORT ---
Author Author TANG AMARO Organization [facility] Address [address] [place] [address] Care Team Providers Care Lawnmower Repair Mechanic Name Role Phone TANG AMARO Unavailable PROBLEMS Type Condition ICD9-CM Code [id number] Code Onset Dates Condition Status SNOMED Code Problem Anxiety F41.9 Active 11935804 Problem Generalized anxiety disorder F41.1 Active 34541827 Problem Moderate episode of recurrent major depressive disorder F33.1 Active 921201855 Problem Chronic hepatitis C without hepatic coma B18.2 Active 905870457 Problem CAD in [place] artery I25.10 Active 2009650315343 Problem Marijuana abuse F12.10 Active 75371134 Problem Other chronic pain G89.29 Active 99043948 Problem Severe episode of recurrent major depressive disorder, without psychotic features F33.2 Active 20989115 Problem Psychosis, unspecified psychosis type F29 Active 91252277 Problem Chronic pain syndrome G89.4 Active 809747923 ALLERGIES Substance Reaction Event Type Date Status Tetracycline HCl hives Drug Allergy Jun, Active PredniSONE migraine Drug Allergy Jun, Active Penicillin V Potassium hives Drug Allergy Jun, Active Levaquin hives Drug Allergy Jun, Active Keflex hives Drug Allergy Jun, Active Erythrocin hives Drug Allergy Jun, Active Ultram hives Non Drug Allergy Jun, Active SOCIAL HISTORY No smoking Hx information available PLAN OF CARE Activity Details Follow Up 4 Weeks with Melody new med start Reason: VITAL SIGNS Height 66 in 2016-06-26 Weight 170 lbs 2016-06-26 Temperature 98.9 degrees Fahrenheit 2016-06-26 Heart Rate 100 bpm 2016-06-26 Respiratory Rate 20 2016-06-26 BMI 27.44 kg/m2 2016-06-26 Blood pressure systolic 118 mmHg 2016-06-26 Blood pressure diastolic 70 mmHg 2016-06-26 MEDICATIONS Medication Instructions Dosage Frequency Start Date End Date Duration Status Hydrocodone-Acetaminophen 7.5-325 MG Orally every 6 hrs 1 tablet as needed 6h Jun, Jun, 2 weeks Active Carafate 1 GM Orally 4 1 tablet on an empty stomach Active Ibuprofen 800 MG Orally Three times a day 1 tablet as needed 8h May, Jun, 30 day(s) Active Aspir-81 81 MG Orally Once a day 1 tablet 24h Active Clonazepam 1 MG Orally Twice a day 1 tablet 12h May, 14 days Active Celexa 20 MG Orally Once a day 1 tablet 24h Jun, 30 day(s) Active RESULTS No Results PROCEDURES Procedure Date Ordered Related Diagnosis Body Site [facility] VISIT ESTABLISHED PATIENT Jun 26, 2016 Office Visit, Est Pt., Level 4 Jun 26, 2016 IMMUNIZATIONS No Known Immunizations
--- OUTSIDE RECORDS SUMMARY | 2017-04-22 12:30 | XMS REPORT ---
Author Author TANG AMARO Organization [facility] Address [address] [place] [address] Care Team Providers Care Cryptological Technician Name Role Phone TANG AMARO Unavailable PROBLEMS Type Condition ICD9-CM Code [id number] Code Onset Dates Condition Status SNOMED Code Problem Chronic hepatitis C without hepatic coma B18.2 Active 701199169 Problem Severe episode of recurrent major depressive disorder, without psychotic features F33.2 Active 56669426 Problem Moderate episode of recurrent major depressive disorder F33.1 Active 680560618 Problem Anxiety F41.9 Active 84625316 Problem CAD in [place] artery I25.10 Active 7549150775716 Problem Marijuana abuse F12.10 Active 51604033 Problem Other chronic pain G89.29 Active 83434235 Problem Generalized anxiety disorder F41.1 Active 36924478 Problem Psychosis, unspecified psychosis type F29 Active 12395292 Problem Chronic pain syndrome G89.4 Active 329259557 ALLERGIES No Information SOCIAL HISTORY Never Assessed PLAN OF CARE VITAL SIGNS MEDICATIONS Medication Instructions Dosage Frequency Start Date End Date Duration Status Hydrocodone-Acetaminophen 10-325 MG Orally 8 hours 1 tablet as needed Jun, 2 weeks Active RESULTS No Results [...] Surgical History Tonsilectomy and Adnoidectomy Surgical History [place] Teeth Surgical History All teeth pulled for dentures Surgical History Right rotator cuff surgery Hospitalization History child Hospitalization History surgeries listed above Hospitalization History Mulitple fractures on bilateral legs Hospitalization History Right arm and wrist fracture Hospitalization History Broken Ribs
--- OUTSIDE RECORDS SUMMARY | 2017-04-22 12:30 | XMS REPORT ---
Author Author TANG AMARO Organization [facility] Address [address] [place] [address] Care Team Providers Care Network Project Manager Name Role Phone TANG AMARO Unavailable PROBLEMS Type Condition ICD9-CM Code [id number] Code Onset Dates Condition Status SNOMED Code Problem Anxiety F41.9 Active 27251906 Problem Generalized anxiety disorder F41.1 Active 21300565 Problem Moderate episode of recurrent major depressive disorder F33.1 Active 029512200 Problem Chronic hepatitis C without hepatic coma B18.2 Active 701861439 Problem CAD in [place] artery I25.10 Active 1162068650782 Problem Marijuana abuse F12.10 Active 90946289 Problem Other chronic pain G89.29 Active 90231568 Problem Severe episode of recurrent major depressive disorder, without psychotic features F33.2 Active 40655674 Problem Psychosis, unspecified psychosis type F29 Active 24753651 Problem Chronic pain syndrome G89.4 Active 826639471 ALLERGIES Unknown Allergies SOCIAL HISTORY No smoking Hx information available PLAN OF CARE VITAL SIGNS MEDICATIONS Unknown Medications RESULTS Name Result Date Reference Range URINE DRUG SCREEN (IN HOUSE) 2016-07-10 Lot # [id number] Exp date 01/2018 Control + COCAINE negative AMPH negative MTD negative THC negative OPIATE positive BENZO positive PCP negative BAR negative OXY positive MAMP negative TCA negative BUP negative MDMA negative PROCEDURES Procedure Date Ordered Related Diagnosis Body Site No Charge Jul 10, 2016 DRUG SCREEN NON TLC DEVICES Jul 10, 2016 IMMUNIZATIONS No Known Immunizations
[2017-04-22] MEDS ORDERED: HYDR-3820 (13:20)
[2017-04-22] MEDS ORDERED: GABA-488 (13:20)
[2017-04-22] MEDS ORDERED: QUET200T57 (13:20)
[2017-04-22] MEDS ORDERED: CLON0.5T3 (13:20)
[2017-04-22] MEDS ORDERED: SERT100T8 (13:20)
--- NOTE | 2017-04-22 14:37 | ED Back Pain ---
General Chief Complaint: Back Problems Stated Complaint: BACK PAIN Nursing Sepsis Screen: No Definite Risk Source of Information: Patient Exam Limitations: No Limitations History of Present Illness Time Seen by Provider: 14:32 Initial Comments The patient is a 57-year-old white female who presents with a chief complaint of acute on chronic low back pain. She reports that she has had back pain for many years. She is had 3 surgeries the last of which was performed in 2007 in [place]. She reported that last week she was feeling a bit better and was vacuuming the floor at her home. Apparently the twisting and turning caused a loud pop and the immediate increase in pain on the left. It is noted through [facility] that she gets hydrocodone from the [place] [address] tabs every 14 days. The last 2 prescriptions were filled on 04/02 and 04/14. Timing/Duration: 6-7 Days Pain/Injury Location: Back Radiation: Upper Legs Method of Injury: Unknown Associated Symptoms: muscle spasms Allergies and Home Medications Allergies Coded Allergies: No Allergy Information Available (Unverified , 03/04/17) Home Medications Clonazepam 0.5 Mg Tablet, (Reported) Gabapentin 300 Mg Capsule, (Reported) Hydrocodone/Acetaminophen 1 Each Tablet, (Reported) Quetiapine Fumarate 200 Mg Tablet, (Reported) Sertraline HCl 100 Mg Tablet, (Reported) Constitutional: see HPI EENTM: no symptoms reported Respiratory: no symptoms reported Cardiovascular: no symptoms reported Gastrointestinal: no symptoms reported Genitourinary: no symptoms reported Musculoskeletal: back pain, muscle pain, muscle stiffness Skin: no symptoms reported Psychiatric/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: No Symptoms Reported Past Hcufaeo-Cbqozn-Jckoqf Hx Patient Social History Recent Foreign Travel: No Contact w/Someone Who Travel: No Recent Infectious Disease Expo: No Surgeries History of Surgeries: Yes (BACK ) Surgeries: Hysterectomy, Oophorectomy, Orthopedic Respiratory Respiratory Disorders: COPD Cardiovascular History of Cardiac Disorders: Yes Cardiac Disorders: Heart Attack, Hypertension 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 History of 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 Disord: No Gastrointestinal History of Gastrointestinal Di: Yes (CYST PANCREATITIS) Musculoskeletal History of Musculoskeletal Dis: No Musculoskeletal Disorders: Arthritis, Chronic Back Pain Endocrine History of Endocrine Disorders: No Cancer History of Cancer: No Psychosocial History of Psychiatric Problem: Yes Behavioral Health Disorders: Anxiety, Bipolar, Depression Physical Exam Vital Signs Vital Sign - Last 12Hours 04/22/17 12:59 Temp 97.7 Pulse 78 Resp 18 B/P (MAP) 101/81 Capillary Refill : Less Than 3 Seconds General Appearance: Other HEENT: Normal ENT Inspection Neck: Normal Inspection Cardiovascular: Regular Rate, Rhythm, No Edema, No Gallop, No JVD, No Murmur, Normal Peripheral Pulses Respiratory: Chest Non Tender, Lungs Clear, Normal Breath Sounds, No Accessory Muscle Use, No Respiratory Distress, Accessory Muscle Use Gastrointestinal: Normal Bowel Sounds, No Organomegaly, No Pulsatile Mass, Non Tender, Soft Back: CVA Tenderness (L), Vertebral Tenderness Extremity: Normal Capillary Refill Progress/Results/Core Measures Results/Orders My Orders Orders - BRISEIDA WILL MD Lumbar Spine - 2-3 Views (04/22/17 14:30) Vital Signs/I&O Vital Sign - Last 12Hours 04/22/17 12:59 Temp 97.7 Pulse 78 Resp 18 B/P (MAP) 101/81 Blood Pressure Mean: 88 Departure Communication (Admissions) Progress Notes By my reading no acute changes are noted. The patient has considerable hardware in the low lumbosacral area of the spine Impression Impression: Primary Impression: acute on chronic back pain Disposition: 01 HOME, SELF-CARE Condition: Stable/Unchanged Departure-Patient Inst. Decision time for Depature: 15:08 Referrals: TANG AMARO MD (PCP/Family) Primary Care Physician Patient Instructions: Low Back Pain (DC) Add. Discharge Instructions: All discharge instructions reviewed with patient and/or family. Voiced understanding. Continue present medications Follow-up with your provider for future needs. Try heat in the area. Scripts [Flexeril] No Conflict Check 10 twice a day, #20 Prov: BRISEIDA WILL MD 04/22/17 BRISEIDA WILL MD Apr 22, 2017 14:37
[2017-04-22] MEDS ORDERED: Flexeril (15:11)
--- NOTE | 2017-04-22 15:15 | Diagnostic Imaging Report ---
EXAMINATION: Two views of the lumbar spine. INDICATION: Back pain. Patient heard a pop after bending over three days ago. FINDINGS: There is anterior and posterior fusion hardware involving L4-S1 levels which appears to be in good alignment. The hardware appears to be intact. The alignment of the spine and the posterior spinal line is satisfactory. The vertebral body heights are preserved. No significant anterior or posterior osteophytes are noted. There is suggestion of osseous fusion across the interbody spaces of L4/5 and L5/S1. IMPRESSION: Anterior and posterior spine fusion hardware involving L4-S1 levels in good alignment. Dictated by: Dictated on workstation # [id number]
[2017-04-22 15:20] VITALS: BP 101/81
== END 2017-04-22 15:22 | disposition home or self-care (01) ==
LOC: EDUNIT# 12:19 → ER 12:21
DX: M54.5 Low back pain (principal); G89.29 Other chronic pain; I25.2 Old myocardial infarction; I10 Essential (primary) hypertension; F41.9 Anxiety disorder, unspecified; F31.9 Bipolar disorder, unspecified; J44.9 Chronic obstructive pulmonary disease, unspecified; Z90.710 Acquired absence of both cervix and uterus
CPT/HCPCS: 72100; 99281

== ENCOUNTER → 2017-08-03 | Outpatient (CLI) | payer MEDICARE, MEDICAID ==
[~2017-08-03] MED LIST changes: -CATHETER FLUSH 10 ML SYR IV PRN; -REGADENOSON 0.4 MG/5 ML SYR (LEXISCAN) IV ONE
--- NOTE | 2017-08-03 13:00 | Diagnostic Imaging Report ---
CLINICAL INDICATION: Patient with pain in right leg. COMPARISON: None. RESTING PRESSURES: Brachial: Right: 109 mmHg Left: 102 mmHg Posterior Tibial: Right: 136 mmHg Left: 120 mmHg Dorsal pedis: Right: 125 mmHg Left: 111 mmHg The right ankle/arm index is 1.25. The left is 1.10. Normal is considered greater than or equal to 0.85. IMPRESSION: The ankle/arm indices are normal at rest bilaterally. Dictated by: Dictated on workstation # [id number]
== END ==
LOC: RAD 11:07
PROVIDERS: ATTEND Physician Assistant
DX: M79.604 Pain in right leg (principal); G89.4 Chronic pain syndrome; R53.83 Other fatigue; Z72.0 Tobacco use
CPT/HCPCS: 93922

== ENCOUNTER → 2018-12-21 | Outpatient (CLI) | payer MEDICARE, MEDICAID ==
[~2018-12-21] MED LIST changes: +CLON0.5T13; -CLON0.5T3
--- NOTE | 2018-12-21 20:42 | Diagnostic Imaging Report ---
INDICATION: Left-sided chest pain, worsened with inspiration. FINDINGS: No lung contusion, pneumothorax, or hemothorax. There is no failure pattern. There is no evidence for pneumonia. There is no free air beneath the diaphragms. No identifiable fracture deformity. IMPRESSION: Unremarkable two-view chest Dictated by: Dictated on workstation # [id number]
== END ==
LOC: RAD FS 16:00
PROVIDERS: ATTEND Emergency Medicine
DX: S22.32XA Fracture of one rib, left side, initial encounter for closed fracture (principal); R10.10 Upper abdominal pain, unspecified
CPT/HCPCS: 71046

== ENCOUNTER 2019-02-06 00:45 | Emergency (ER) | payer MEDICARE, MEDICAID ==
[~2019-02-06] VITALS: Ht 162.6 cm; Wt 77.1 kg
--- NOTE | 2019-02-06 01:25 | ED Dyspnea ---
General Stated Complaint: SOB Source of Information: Patient, EMS History of Present Illness Date Seen by Provider: Feb 06, 2019 Time Seen by Provider: 01:00 Initial Comments Patient onset SOB and cough a week ago. Was seen in office and started on Z ithromax. Has nebs medicine at home but has to borrow nebulizer which was taken. No rescue inhalers. Received duoneb on route with good result. Timing/Duration: 1 Week Severity: Moderate Prior Episodes/Possible Cause: Occasional Episodes Modifying Factors: Improves With Albuterol Nebulizer, Improves With Antibiotics Associated Symptoms: Chest Pain, Cough, Fever, Wheezing Allergies and Home Medications Allergies Coded Allergies: No Allergy Information Available (Unverified , 03/04/17) Home Medications Albuterol Sulfate 1 Puff Puff, 2 PUFF IH Q4H 1 PUFF = 90 MCG Prescribed by: FREDRICK MOORE on 02/06/19 030 Doxycycline Hyclate 100 Mg Tablet, 100 MG PO BID Prescribed by: FREDRICK MOORE on 02/06/19 030 Prednisone 10 Mg Tab.ds.pk, 10 MG PO DAILY Take 6 tabs(60mg)daily,decrease by 1 tab(10MG)daily. Prescribed by: FREDRICK MOORE on 02/06/19 030 [Flexeril] , 10 twice a day Prescribed by: BRISEIDA WILL on 04/22/17 1511 Patient Home Medication List Home Medication List Reviewed: Yes Review of Systems Review of Systems Constitutional: No diaphoresis; dizziness; No fever; malaise EENTM: no symptoms reported Respiratory: see HPI, cough, short of breath; No stridor; wheezing Cardiovascular: No chest pain, No palpitations Gastrointestinal: no symptoms reported Genitourinary: no symptoms reported : No Musculoskeletal: no symptoms reported Skin: no symptoms reported Psychiatric/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: No Symptoms Reported Endocrine: No Symptoms Reported Hematologic/Lymphatic: No Symptoms Reported All Other Systems Reviewed Negative Unless Noted: Yes Past Rcjkria-Qvlgtd-Kedzox Hx Past Medical History Surgeries: Yes (BACK ) Hysterectomy, Oophorectomy, Orthopedic COPD Cardiac: Yes Heart Attack, Hypertension 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: No Gastrointestinal: Yes (CYST PANCREATITIS) Musculoskeletal: No Arthritis, Chronic Back Pain Endocrine: No Cancer: No Psychosocial: Yes Anxiety, Bipolar, Depression Physical Exam Vital Signs Vital Signs - First Documented 02/06/19 00:50 Temp 97.8 Pulse 70 Resp 24 B/P (MAP) 114/66 (82) Pulse Ox 98 O2 Delivery Room Air Capillary Refill : Height, Weight, BMI Height: 5'6.00" Weight: 180lbs. oz. 81.641864em; BMI Method:Stated General Appearance: No Apparent Distress, WD/WN HEENT: PERRL/EOMI, Normal ENT Inspection Neck: Full Range of Motion, Normal Inspection, Supple Respiratory: No Accessory Muscle Use, No Respiratory Distress, Wheezing Cardiovascular: Regular Rate, Rhythm, No Edema Gastrointestinal: Non Tender Extremity: Normal Inspection, Normal Range of Motion Neurologic/Psychiatric: Alert, Oriented x3 Skin: Normal Color Progress/Results/Core Measures Results/Orders Lab Results Laboratory Tests Test 02/06/19 01:39 02/06/19 01:55 Range/Units White Blood Count 17.8 H 4.3-11.0 10^3/uL Red Blood Count 5.02 4.35-5.85 10^6/uL Hemoglobin 14.7 11.5-16.0 G/DL Hematocrit 44 35-52 % Mean Corpuscular Volume 87 80-99 FL Mean Corpuscular Hemoglobin 29 25-34 PG Mean Corpuscular Hemoglobin Concent 34 32-36 G/DL Red Cell Distribution Width 14.8 H 10.0-14.5 % Platelet Count 307 130-400 10^3/uL Mean Platelet Volume 12.2 H 7.4-10.4 FL Neutrophils (%) (Auto) 42-75 % Lymphocytes (%) (Auto) 12-44 % Monocytes (%) (Auto) 0-12 % Eosinophils (%) (Auto) 0-10 % Basophils (%) (Auto) 0-10 % Neutrophils # (Auto) 1.8-7.8 X 10^3 Lymphocytes # (Auto) 1.0-4.0 X 10^3 Monocytes # (Auto) 0.0-1.0 X 10^3 Eosinophils # (Auto) 0.0-0.3 10^3/uL Basophils # (Auto) 0.0-0.1 10^3/uL Neutrophils % (Manual) 67 % Lymphocytes % (Manual) 16 % Monocytes % (Manual) 9 % Eosinophils % (Manual) 0 % Basophils % (Manual) 0 % Band Neutrophils 8 % Blood Morphology Comment NORMAL Blood Gas Puncture Site R BRACHIAL Blood Gas Patient Temperature 97.8 Arterial Blood pH 7.42 7.37-7.43 Arterial Blood Partial Pressure CO2 40 35-45 MMHG Arterial Blood Partial Pressure O2 80 79-93 MMHG Arterial Blood HCO3 26 23-27 MMOL/L Arterial Blood Total CO2 27.1 21.0-31.0 MMOL/L Arterial Blood Oxygen Saturation 96 94-100 % Arterial Blood Base Excess 1.3 -2.5-2.5 MMOL/L Brayden Test NA Blood Gas Ventilator Setting NO Blood Gas Inspired Oxygen ROOM AIR Sodium Level 135 135-145 MMOL/L Potassium Level 3.6 3.6-5.0 MMOL/L Chloride Level 95 L 98-107 MMOL/L Carbon Dioxide Level 22 21-32 MMOL/L Anion Gap 18 H 5-14 MMOL/L Blood Urea Nitrogen 22 H 7-18 MG/DL Creatinine 1.28 0.60-1.30 MG/DL Estimat Glomerular Filtration Rate 43 BUN/Creatinine Ratio 17 Glucose Level 134 H 70-105 MG/DL Calcium Level 10.7 H 8.5-10.1 MG/DL Corrected Calcium 10.4 H 8.5-10.1 MG/DL Total Bilirubin 0.2 0.1-1.0 MG/DL Aspartate Amino Transf (AST/SGOT) 14 5-34 U/L Alanine Aminotransferase (ALT/SGPT) 10 0-55 U/L Alkaline Phosphatase 92 40-136 U/L Total Protein 7.2 6.4-8.2 GM/DL Albumin 4.4 3.2-4.5 GM/DL My Orders Orders - FREDRICK AYON MD Chest Pa/Lat (2 View) (02/06/19 01:09) Cbc And Manual Diff (02/06/19 01:09) Comprehensive Metabolic Panel (02/06/19 01:09) Arterial Blood Gas (02/06/19 01:09) Methylprednisolone Sod Succ (Solu-Medrol (02/06/19 01:30) Medications Given in ED Current Medications Medications Dose Ordered Sig/Sandra Route Start Time Stop Time Status Last Admin Dose Admin Methylprednisolone Sodium Succinate 125 mg ONCE ONCE IVP 02/06/19 01:30 02/06/19 01:31 DC 02/06/19 01:45 125 MG Vital Signs/I&O 02/06/19 02/06/19 00:50 03:09 Temp 97.8 97.6 Pulse 70 55 Resp 24 16 B/P (MAP) 114/66 (82) 114/66 (82) Pulse Ox 98 95 O2 Delivery Room Air Room Air Progress Progress Note : Time: 02:55 Progress Note Patient and stable. She has PCP. Plan is steroids, antibiotic for atypical, proair. Initial ECG Impression Date: Feb 06, 2019 Departure Impression Primary Impression: COPD exacerbation Disposition: 01 HOME, SELF-CARE Condition: Improved Departure-Patient Inst. Referrals: TARUN LACY DO (PCP/Family) Primary Care Physician Scripts Doxycycline Hyclate (Doxycycline Hyclate) 100 Mg Tablet 100 MG PO BID for atypical for 10 Days, #20 TAB 0 Refills Prov: FREDRICK AYON MD 02/06/19 Albuterol Sulfate (PROAIR HFA) 1 Puff Puff 2 PUFF IH Q4H for emphysema for 10 Days, PUFF 0 Refills 1 PUFF = 90 MCG Prov: FREDRICK AYON MD 02/06/19 Prednisone (Prednisone) 10 Mg Tab.ds.pk 10 MG PO DAILY for emphysema for 7 Days, #7 EA 0 Refills Take 6 tabs(60mg)daily,decrease by 1 tab(10MG)daily. Prov: FREDRICK AYON MD 02/06/19 FREDRICK AYON MD Feb 06, 2019 01:25
[2019-02-06] MEDS ORDERED: methylPREDNISolone 125 MG (Solu-MEDROL) VIAL IVP ONE (01:30)
[2019-02-06 02:13] LABS: HEMATOCRIT 44 % (35-52); HEMOGLOBIN 14.7 G/DL (11.5-16.0); MEAN CORPUSCULAR HEMOGLOBIN 29 PG (25-34); MEAN CORPUSCULAR HGB CONC 34 G/DL (32-36); MEAN CORPUSCULAR VOLUME 87 FL (80-99); MEAN PLATELET VOLUME 12.2 FL (7.4-10.4); PLATELET COUNT 307 10^3/uL (130-400); RED CELL DISTRIBUTION WIDTH 14.8 % (10.0-14.5); WHITE BLOOD COUNT 17.8 10^3/uL (4.3-11.0)
[2019-02-06 02:15] LABS: ABG BASE EXCESS 1.3 MMOL/L (-2.5-2.5); ABG OXYGEN SATURATION 96 % (94-100); ABG PCO2 40 MMHG (35-45); ABG PH 7.42 (7.37-7.43); ABG PO2 80 MMHG (79-93); ABG TCO2 27.1 MMOL/L (21.0-31.0)
[2019-02-06 02:16] LABS: INSPIRED O2 ROOM AIR; PATIENT TEMP 97.8; VENTILATOR NO
[2019-02-06 02:22] LABS: BAND NEUTROPHILS 8 %; BASOPHILS % (MANUAL) 0 %; EOSINOPHILS % (MANUAL) 0 %; LYMPHOCYTES % (MANUAL) 16 %; MONOCYTES % (MANUAL) 9 %; NEUTROPHILS % (MANUAL) 67 %; RBC MORPH NORMAL
[2019-02-06 02:35] LABS: ALBUMIN 4.4 GM/DL (3.2-4.5); BILIRUBIN,TOTAL 0.2 MG/DL (0.1-1.0); CALCIUM 10.7 MG/DL (8.5-10.1); CREATININE SERUM 1.28 MG/DL (0.60-1.30); POTASSIUM 3.6 MMOL/L (3.6-5.0); TOTAL PROTEIN 7.2 GM/DL (6.4-8.2)
[2019-02-06] MEDS ORDERED: PRED10TA22 PO (03:02)
[2019-02-06] MEDS ORDERED: RT-ALBUINH IH (03:03)
[2019-02-06] MEDS ORDERED: DOXY100T2 PO (03:06)
[2019-02-06 03:09] VITALS: BP 114/66
--- NOTE | 2019-02-06 03:11 | NUR ---
WHEN THE PATIENT ARRIVED BY EMS THERE WAS AN SALINE LOCK IN THE LEFT FOREARM. 20 GAUGE.
--- NOTE | 2019-02-06 09:27 | Diagnostic Imaging Report ---
Indication: Dyspnea. Comparison: 12/21/2018. Discussion: Two views of the chest were obtained. The lungs remain hyperinflated. Normal heart size. No focal consolidation, pleural fluid, or pneumothorax. No acute osseous abnormality. Impression: 1. No acute cardiopulmonary process. Dictated by: Dictated on workstation # [id number]
== END 2019-02-06 03:12 | disposition home or self-care (01) ==
LOC: EDUNIT# 00:45 → ER FS 00:46
DX: J44.1 Chronic obstructive pulmonary disease with (acute) exacerbation (principal); I10 Essential (primary) hypertension; I25.2 Old myocardial infarction; F31.9 Bipolar disorder, unspecified; F41.9 Anxiety disorder, unspecified; Z90.710 Acquired absence of both cervix and uterus
CPT/HCPCS: 36415; 71046; 80053; 82805; 85007; 85027; 96374

== ENCOUNTER 2019-05-28 20:45 | Emergency (ER) | payer MEDICARE, MEDICAID ==
[~2019-05-28] VITALS: Ht 165.1 cm; Wt 81.8 kg
[~2019-05-28 20:45] MED LIST changes: +DOXY100T2 PO; +PRED10TA22 PO; +RT-ALBUINH IH
[2019-05-28] MEDS ORDERED: KETOROLAC 60 MG/2 ML VIAL IM STA (21:39)
[2019-05-28] MEDS ORDERED: morphine INJ 10 MG/ML 1ML (SYR OR VIAL) IM STA (21:39)
[2019-05-28] MEDS ORDERED: ORPHENADRINE 60 MG/2 ML (NORFLEX) AMP IM STA (21:39)
[2019-05-28] MEDS ORDERED: RX-OXYCODONE/APAP 5-325 MG #4 TAB PK PO PRN (21:45)
[2019-05-28] MEDS ORDERED: ORPH100T PO (22:08)
--- NOTE | 2019-05-28 22:09 | ED Lower Extremity ---
General Chief Complaint: Lower Extremity Stated Complaint: GROIN PAIN Nursing Triage Note: pt states pain in right thigh since december, now in groin. states has had bilateral knee pain for weeks Nursing Sepsis Screen: No Definite Risk Source: patient History of Present Illness Date Seen by Provider: May 28, 2019 Time Seen by Provider: 20:52 Initial Comments 59-year-old female presents with complaints of right thigh and knee pain. She has had similar pain since December and worse since February but states it has been more severe in the last few days. Her medications that she takes at home have not been helping. Today it was more severe and she was concerned so she came to the emergency department. She has tried Suboxone, aspirin, Tylenol without any significant improvement. She states that she has brought it up with Dr. Joyce segal but feels that she continues to have severe pain and sincet it is Thursday night she felt she had no option other than to come to the ER. She denies any new injury to her leg or knee. She has had some swelling to her legs but it improves with elevation. She denies any fever or chills. The pain is worse with movement. Allergies and Home Medications Allergies Coded Allergies: Penicillins (Verified Allergy, Unknown, 05/28/19) azithromycin (Verified Allergy, Unknown, 05/28/19) cephalexin (Verified Allergy, Unknown, 05/28/19) tetracycline (Verified Allergy, Unknown, 05/28/19) Home Medications Albuterol Sulfate 1 Puff Puff, 2 PUFF IH Q4H 1 PUFF = 90 MCG Prescribed by: FREDRICK MOORE on 02/06/19302 Doxycycline Hyclate 100 Mg Tablet, 100 MG PO BID Prescribed by: FREDRICK MOORE on 02/06/19 030 Orphenadrine Citrate 100 Mg Tablet.er, 100 MG PO BID Prescribed by: MACARENA CLARKE on 05/28/192207 Prednisone 10 Mg Tab.ds.pk, 10 MG PO DAILY Take 6 tabs(60mg)daily,decrease by 1 tab(10MG)daily. Prescribed by: FREDRICK MOORE on 02/06/19 030 [Flexeril] , 10 twice a day Prescribed by: BRISEIDA WILL on 04/22/17 1511 Patient Home Medication List Home Medication List Reviewed: Yes Review of Systems Constitutional: No chills, No fever EENTM: no symptoms reported Respiratory: no symptoms reported Cardiovascular: no symptoms reported Gastrointestinal: no symptoms reported Genitourinary: no symptoms reported Musculoskeletal: see HPI, joint pain (right knee), muscle pain (right groin and knee), muscle cramps (right groin) Skin: no symptoms reported Past Ijnscwf-Xhwgzg-Fjuula Hx Past Med/Social Hx: Reviewed Nursing Past Med/Soc Hx Patient Social History Alcohol Use: Denies Use Recreational Drug Use: Yes Drug of Choice: marijuana Smoking Status: Never a Smoker 2nd Hand Smoke Exposure: No Recent Foreign Travel: No Contact w/Someone Who Travel: No Recent Infectious Disease Expo: No Recent Hopitalizations: No Physical Abuse: No Sexual Abuse: No Mistreated: No Fear: No Past Medical History Surgeries: Yes Brain Shunt, Orthopedic Respiratory: No COPD Cardiac: No Heart Attack, Hypertension 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: No Genitourinary: No Gastrointestinal: No Musculoskeletal: No Arthritis, Chronic Back Pain Endocrine: No HEENT: No Cancer: No Psychosocial: Yes Depression Integumentary: No Blood Disorders: No Adverse Reaction/Blood Tranf: No Physical Exam Vital Signs Vital Signs - First Documented 05/28/19 21:04 Temp 36.3 Pulse 66 Resp 22 B/P (MAP) 138/94 (109) Pulse Ox 98 O2 Delivery Room Air Capillary Refill : Less Than 3 Seconds Height, Weight, BMI Height: 5'4.00" Weight: 170lbs. oz. 77.047872tw; 30.00 BMI Method:Stated General Appearance: WD/WN, mild distress (complaining of pain in her right knee and thigh) Neck: full range of motion, supple, normal inspection Cardiovascular: normal peripheral pulses, regular rate, rhythm Respiratory: chest non-tender, lungs clear, normal breath sounds, no respiratory distress, no accessory muscle use Gastrointestinal: normal bowel sounds, non tender, soft, no organomegaly, no pulsatile mass Hips: right hip non-tender, right hip normal inspection, right hip normal range of motion, right hip no evidence of injury Legs: right leg no evidence of injury, right leg pain, right leg soft tissue tenderness Knees: right knee no evidence of injury, right knee bone tenderness, right knee pain, right knee other (right knee pain and increased pain with movement as well as palpation along the medial collateral ligament. No calf pain present and negative Homans sign as well as no cording present.) Neurologic/Tendon: normal sensation, normal motor functions, normal tendon functions Neurologic/Psychiatric: alert, normal mood/affect, oriented x 3 Skin: normal color, warm/dry Progress/Results/Core Measures Results/Orders My Orders Orders - MACARENA CLARKE MD Ketorolac Injection (Toradol Injection) (05/28/19 21:39) Orphenadrine Injection (Norflex Injectio (05/28/19 21:39) Morphine Injection (Morphine Injection (05/28/19 21:39) Knee Immobilizer (05/28/19 21:39) Rx-Oxycodone/Apap 5-325 Mg (Rx-Percocet (05/28/19 21:45) Vital Signs/I&O 05/28/19 05/28/19 21:04 22:13 Temp 36.3 36.3 Pulse 66 72 Resp 22 16 B/P (MAP) 138/94 (109) 108/85 Pulse Ox 98 98 O2 Delivery Room Air Room Air Blood Pressure Mean: 109 POS Progress Progress Note : Progress Note It seems that the pain is more referred from the knee as well as muscle spasms and cramping from compensating for the knee pain. We'll place the patient in a knee immobilizer and try Toradol and Norflex for injections as well as a dose of morphine. Give 4 Percocet to help with sleep and have her follow-up with Dr. Ladd on Thursday. With the knee immobilizer to help would be to rest her knee and allow the thigh to relax and not have to work so hard to compensate for the knee pain. She may need an MRI or referral to orthopedics for her symptoms. She may also need to have physical therapy or something to help with her symptoms as well. Since the baclofen was not helping try Norflex at home for her muscle relaxer to see if it might do better. Departure Impression Primary Impression: MCL sprain of right knee Qualified Codes: S83.411A - Sprain of medial collateral ligament of right knee, initial encounter Additional Impressions: Internal derangement of knee joint Qualified Codes: M23.91 - Unspecified internal derangement of right knee Severe right groin pain Disposition: HOME, SELF-CARE Condition: Stable Departure-Patient Inst. Decision time for Depature: 22:06 Referrals: TARUN LADD DO (PCP/Family) Primary Care Physician Patient Instructions: Groin Strain (DC), Internal Derangement of the Knee (DC), Knee Immobilizer (DC), Knee Sprain (DC), Ligament Injuries in the Knee (DC) Add. Discharge Instructions: Wear knee immobilizer at all times except when you are taking a shower or cleaning up. Follow up with Dr. Ladd on Thursday to see about an MRI or further care for your knee and thigh for your worsening pain. Try the Orphenadrine (Norflex) for a muscle relaxer instead of the Baclofen All discharge instructions reviewed with patient and/or family. Voiced underst anding. Scripts Orphenadrine Citrate (Orphenadrine Citrate) 100 Mg Tablet.er 100 MG PO BID for muscle spasm/pain for 10 Days, #20 TAB 0 Refills Prov: MACARENA CLARKE MD 05/28/19 MACARENA CLARKE MD May 28, 2019 22:09 POS
[2019-05-28 22:13] VITALS: BP 108/85
== END 2019-05-28 22:13 | disposition home or self-care (01) ==
LOC: EDUNIT# 20:45 → ER FS 20:46
DX: S83.411A Sprain of medial collateral ligament of right knee, initial encounter (principal); M23.91 Unspecified internal derangement of right knee; R10.30 Lower abdominal pain, unspecified; I10 Essential (primary) hypertension; I25.2 Old myocardial infarction; J44.9 Chronic obstructive pulmonary disease, unspecified; F32.9 Major depressive disorder, single episode, unspecified; Z88.0 Allergy status to penicillin; Z88.1 Allergy status to other antibiotic agents; Z79.52 Long term (current) use of systemic steroids; X58.XXXA Exposure to other specified factors, initial encounter
CPT/HCPCS: 99284

== ENCOUNTER 2019-08-10 17:01 | Emergency (ER) | payer MEDICARE, MEDICAID ==
[~2019-08-10] VITALS: Ht 162 cm; Wt 90.0 kg
[~2019-08-10 17:01] MED LIST changes: -CLON0.5T13; +CLON0.5T4; +ORPH100T PO; +QUET200T29; -QUET200T57
[2019-08-10] MEDS ORDERED: morphine INJ 10 MG/ML 1ML (SYR OR VIAL) IVP STA (17:12)
[2019-08-10] MEDS ORDERED: ONDANSETRON 4 MG/2 ML (SDV) Z0FRAN IVP ONE (17:15)
--- NOTE | 2019-08-10 17:19 | ED General ---
General Chief Complaint: Abdominal/GI Problems Stated Complaint: ADB PAIN,FEVER History of Present Illness Date Seen by Provider: Aug 10, 2019 Time Seen by Provider: 17:15 Initial Comments Patient presenting to emergency department for evaluation of fever abdominal pain and raspy voice generally not feeling well. Patient says that she saw her primary care provider last week on Thursday for this abdominal pain and she was started on Suboxone although she has been on Suboxone the past she thinks made her face swell and she stopped taking it. She has not had any rash or difficulty breathing. Patient says her abdominal pain is crampy and diffuse lower quadrant and associated with nausea and constipation and fever. The abdominal pain started last week but the fever started today and she took a dose of either Tylenol or ibuprofen around noon today. Patient says that she has had an appendectomy and hysterectomy oophorectomy and laparotomy for adhesions as well as a back surgery where they went through her abdomen. She thinks this feels similar to prior diverticulitis. She says that her voice feels raspy she denies a definite sore throat or stiff neck. She is in no obvious distress with normal vital signs. (FREDRICK LEOS DO) Allergies and Home Medications Allergies Coded Allergies: Penicillins (Verified Allergy, Unknown, 05/28/19) azithromycin (Verified Allergy, Unknown, 05/28/19) cephalexin (Verified Allergy, Unknown, 05/28/19) tetracycline (Verified Allergy, Unknown, 05/28/19) Home Medications Albuterol Sulfate 1 Puff Puff, 2 PUFF IH Q4H 1 PUFF = 90 MCG Prescribed by: FREDRICK MOORE on 02/06/19302 Doxycycline Hyclate 100 Mg Tablet, 100 MG PO BID Prescribed by: FREDRICK MOORE on 02/06/19 030 Orphenadrine Citrate 100 Mg Tablet.er, 100 MG PO BID Prescribed by: MACARENA CLARKE on 05/28/192207 Prednisone 10 Mg Tab.ds.pk, 10 MG PO DAILY Take 6 tabs(60mg)daily,decrease by 1 tab(10MG)daily. Prescribed by: FREDRICK MOORE on 02/06/19 030 [Flexeril] , 10 twice a day Prescribed by: BRISEIDA WILL on 04/22/17 1511 Patient Home Medication List Home Medication List Reviewed: Yes (FREDRICK LEOS DO) Review of Systems Review of Systems Constitutional: chills, fever, malaise EENTM: hoarseness Respiratory: no symptoms reported Cardiovascular: no symptoms reported Gastrointestinal: abdominal pain, constipation, nausea Genitourinary: no symptoms reported Musculoskeletal: no symptoms reported Skin: no symptoms reported (FREDRICK LEOS DO) All Other Systems Reviewed Negative Unless Noted: Yes (FREDRICK LEOS DO) Past Oaautti-Vyrdva-Lwjzlx Hx Patient Social History Drug of Choice: marijuana 2nd Hand Smoke Exposure: No Recent Hopitalizations: No (FREDRICK LEOS DO) Past Medical History Surgeries: Yes Brain Shunt, Orthopedic Respiratory: No COPD Cardiac: No Heart Attack, Hypertension 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: No Genitourinary: No Gastrointestinal: No Musculoskeletal: No Arthritis, Chronic Back Pain Endocrine: No HEENT: No Cancer: No Psychosocial: Yes Depression Integumentary: No Blood Disorders: No Adverse Reaction/Blood Tranf: No (FREDRICK LEOS DO) Physical Exam Vital Signs Vital Signs - First Documented 08/10/19 17:17 Temp 37.2 Pulse 84 Resp 18 B/P (MAP) 139/89 (106) Pulse Ox 100 O2 Delivery Room Air (MACARENA CLARKE MD) Vital Signs Capillary Refill : (FREDRICK LEOS DO) Height, Weight, BMI Height: 5'4.00" Weight: 170lbs. oz. 77.551301xu; 30.00 BMI Method:Stated General Appearance: No Apparent Distress, WD/WN HEENT: PERRL/EOMI, Pharynx Normal; No Tonsillar Exudate, No Tonsillar Enlargement; Other (normal voice.) Neck: Non Tender, Supple; No Limited Range of Motion Respiratory: Lungs Clear, No Respiratory Distress Cardiovascular: Regular Rate, Rhythm Gastrointestinal: Soft; No Guarding, No Rebound; Tenderness (diffuse lower abdomen) Back: Normal Inspection Extremity: Normal Capillary Refill Neurologic/Psychiatric: Alert, Oriented x3 Skin: Warm/Dry (FREDRICK LEOS DO) Progress/Results/Core Measures Suspected Sepsis SIRS Temperature: Pulse: Respiratory Rate: Blood Pressure / Mean: (FREDRICK LEOS DO) Results/Orders Lab Results Laboratory Tests Test 08/10/19 17:08 08/10/19 17:18 08/10/19 17:20 Range/Units White Blood Count 12.8 H 4.3-11.0 10^3/uL Red Blood Count 4.94 4.35-5.85 10^6/uL Hemoglobin 14.3 11.5-16.0 G/DL Hematocrit 42 35-52 % Mean Corpuscular Volume 85 80-99 FL Mean Corpuscular Hemoglobin 29 25-34 PG Mean Corpuscular Hemoglobin Concent 34 32-36 G/DL Red Cell Distribution Width 15.0 H 10.0-14.5 % Platelet Count 396 130-400 10^3/uL Mean Platelet Volume 10.5 H 7.4-10.4 FL Neutrophils (%) (Auto) 70 42-75 % Lymphocytes (%) (Auto) 21 12-44 % Monocytes (%) (Auto) 7 0-12 % Eosinophils (%) (Auto) 1 0-10 % Basophils (%) (Auto) 1 0-10 % Neutrophils # (Auto) 9.0 H 1.8-7.8 X 10^3 Lymphocytes # (Auto) 2.7 1.0-4.0 X 10^3 Monocytes # (Auto) 0.9 0.0-1.0 X 10^3 Eosinophils # (Auto) 0.1 0.0-0.3 10^3/uL Basophils # (Auto) 0.1 0.0-0.1 10^3/uL Sodium Level 139 135-145 MMOL/L Potassium Level 3.8 3.6-5.0 MMOL/L Chloride Level 104 98-107 MMOL/L Carbon Dioxide Level 21 21-32 MMOL/L Anion Gap 14 5-14 MMOL/L Blood Urea Nitrogen 10 7-18 MG/DL Creatinine 0.77 0.60-1.30 MG/DL Estimat Glomerular Filtration Rate > 60 BUN/Creatinine Ratio 13 Glucose Level 147 H 70-105 MG/DL Calcium Level 10.4 H 8.5-10.1 MG/DL Corrected Calcium 10.2 H 8.5-10.1 MG/DL Total Bilirubin 0.2 0.1-1.0 MG/DL Aspartate Amino Transf (AST/SGOT) 18 5-34 U/L Alanine Aminotransferase (ALT/SGPT) 11 0-55 U/L Alkaline Phosphatase 76 40-136 U/L Total Protein 6.9 6.4-8.2 GM/DL Albumin 4.3 3.2-4.5 GM/DL Lipase 19 8-78 U/L Urine Color YELLOW Urine Clarity CLEAR Urine pH 6.0 5-9 Urine Specific [place] 1.010 L 1.016-1.022 Urine Protein NEGATIVE NEGATIVE Urine Glucose (UA) NEGATIVE NEGATIVE Urine Ketones NEGATIVE NEGATIVE Urine Nitrite NEGATIVE NEGATIVE Urine Bilirubin NEGATIVE NEGATIVE Urine Urobilinogen 0.2 < = 1.0 MG/DL Urine Leukocyte Esterase 1+ H NEGATIVE Urine RBC (Auto) NEGATIVE NEGATIVE Urine RBC NONE /HPF Urine WBC 10-25 H /HPF Urine Squamous Epithelial Cells 5-10 /HPF Urine Crystals NONE /LPF Urine Bacteria NEGATIVE /HPF Urine Casts NONE /LPF Urine Mucus NEGATIVE /LPF Urine Culture Indicated YES Group A Streptococcus Screen NEGATIVE NEGATIVE (MACARENA CLARKE MD) Micro Results Microbiology 08/10/19 Influenza Types A,B Antigen ([facility]) - Final, Complete (MACARENA CLARKE MD) Medications Given in ED Current Medications Medications Dose Ordered Sig/Sandra Route Start Time Stop Time Status Last Admin Dose Admin Iohexol 100 ml ONCE ONCE IV 08/10/19 18:00 08/10/19 18:01 DC 08/10/19 18:22 100 ML Ondansetron HCl 4 mg ONCE ONCE IVP 08/10/19 17:15 08/10/19 17:16 DC 08/10/19 17:23 4 MG Sodium Chloride 10 ml NEEDED PRN IV 08/10/19 18:00 08/10/19 18:22 10 ML Sodium Chloride 100 ml ONCE ONCE IV 08/10/19 18:00 08/10/19 18:01 DC 08/10/19 18:22 80 ML (MACARENA CLARKE MD) Vital Signs/I&O 08/10/19 17:17 Temp 37.2 Pulse 84 Resp 18 B/P (MAP) 139/89 (106) Pulse Ox 100 O2 Delivery Room Air (MACARENA CLARKE MD) Vital Signs/I&O Capillary Refill : (FREDRICK LEOS DO) Progress Note : Progress Note Patient with nonspecific lower abdominal pain along with fever constipation and nausea. I will treat her symptoms check labs urinalysis influenza strep CT and reassess. Workup pending at time of disposition at 1800. Care will be transferred to Dr. Clarke. (FREDRICK LEOS DO) Progress Note #1: Time: 18:00 Progress Note I assumed care of the patient at shift change pending CT scan of abdomen/pelvis. CBC shows mild elevation of WBC count to 12.8. Stable Chemistry without elevation of LFTs or renal function. Negative flu and strep. UA shows 1+ LE and 10-25 WBC without bacteria or Nit. Culture was reflexed. Progress Note #2: Time: 19:08 Progress Note Updated pt about results and advised to follow up with Dr. Ladd and to get outpatient CT to look at adrenal gland cysts. Treat with bactrim DS for uti. Increase miralax for constipation and bloating to 2 times a day until going better for constipation. See Dr. Ladd tomorrow and check with him about her symptoms and feeling like she is reacting to Suboxone. (MACARENA CLARKE MD) Diagnostic Imaging Diagonstic Imaging: CT Plain Films/CT/US/NM/MRI: abdomen, pelvis Comments NAME: RONEL UMAÑA MED REC#: [id number] PT STATUS: REG ER : 1960 PHYSICIAN: FREDRICK LEOS DO ADMIT DATE: 08/10/19/ER FS Draft Date of Exam:08/10/19 CT ABDOMEN/PELVIS W INDICATION: Abdominal pain for 4 days, possible diverticulitis. Prior hysterectomy, and appendectomy. EXAMINATION: CT abdomen and pelvis with contrast, 08/10/2019. COMPARISON: None. FINDINGS: Lung bases are unremarkable for acute abnormality. Liver demonstrates diffuse fatty infiltration. Gallbladder is normal. Spleen unremarkable. There is marked prominence of both adrenal glands, nonspecific at this time. Outpatient nonemergent followup with dedicated adrenal protocol CT recommended for better characterization. Pancreas contains a cystic lesion towards the pancreatic tail. It measures 2.1 cm in greatest dimension. Its Hounsfield units are consistent with a fairly simple cyst, however, this should be followed for better characterization with a pancreatic protocol CT. The remaining pancreas is unremarkable. Cystic lesion seen bilaterally within the kidneys, likely cysts, too small for characterization. The gallbladder is unremarkable. There are diffuse atherosclerotic views along the course of the aorta. There is no ascites or free air. No focal inflammatory changes about the bowel loops. Findings of mild constipation seen in the right colon. Posterior findings throughout the lumbar region are noted with diffuse degenerative findings also seen. Lung bases are unremarkable. IMPRESSION: 1. Diffuse fatty infiltration throughout the liver. 2. Prominent cystic changes throughout both adrenal glands with a cystic lesion in the pancreatic tail, which are nonspecific see above discussion and recommendations. 3. Cystic lesion, left kidney, possibly not mentioned above but fairly simple in appearance. No acute abnormality appreciated other than mild constipation. Next number not mentioned above compression deformity is noted at the at L2 and L3. The L2 abnormality was present previously L3 abnormality is not seen appears radiograph from 2017 but is age-indeterminate clinical correlation is recommended Dictated on workstation # [id number] Dict: 08/10/19 1832 Trans: 08/10/19 1857 [facility] [id number] Interpreted by: LISSA JO MD Electronically signed by: (MACARENA CLARKE MD) Departure Impression Primary Impression: Abdominal pain Qualified Codes: R10.30 - Lower abdominal pain, unspecified Additional Impressions: Constipation Qualified Codes: K59.01 - Slow transit constipation Cystitis without hematuria Adrenal cyst Pancreatic cyst Disposition: HOME, SELF-CARE Condition: Stable Departure-Patient Inst. Decision time for Depature: 19:24 (MACARENA CLARKE MD) Referrals: TARUN LADD DO (PCP/Family) Primary Care Physician Patient Instructions: Constipation, Adult (DC), Acute Cystitis (DC) Add. Discharge Instructions: Take the full course of antibiotics to treat for UTI The CT scan shows some constipation and bloating but no obstruction. Increase the Miralax to 2 doses a day until your bowels are moving better and you are having improved abdominal pain. Stay well hydrated and follow up with Dr. Ladd about your symptoms. Radiology recommends that you have an outpatient scan of your adrenal and pancreas cysts. These are not causing your pain or symptoms tonight, and were just incidental findings on your scan. You can let Dr. Ladd know about this and he can help arrange for this testing. If he needs more information he can request the radiology report or work with the radiology department about ordering the testing. All discharge instructions reviewed with patient and/or family. Voiced u nderstanding. Scripts Sulfamethoxazole/Trimethoprim (Bactrim Ds Tablet) 1 Each Tablet 1 EACH PO BID for UTI for 7 Days, #14 TAB 0 Refills Prov: MACARENA CLARKE MD 08/10/19 FREDRICK LEOS DO Aug 10, 2019 17:19 MACARENA CLARKE MD Aug 10, 2019 18:14
[2019-08-10 17:39] LABS: COLOR,URINE YELLOW
[2019-08-10 17:40] LABS: BACTERIA,URINE NEGATIVE /HPF; BILIRUBIN,URINE NEGATIVE (NEGATIVE); CLARITY,URINE CLEAR; GLUCOSE, URINE (UA) NEGATIVE (NEGATIVE); KETONES,URINE NEGATIVE (NEGATIVE); LEUKOCYTE ESTERASE ,URINE 1+ (NEGATIVE); NITRITE,URINE NEGATIVE (NEGATIVE); PROTEIN,URINE NEGATIVE (NEGATIVE)
[2019-08-10 17:41] LABS: BASOPHILS % (AUTO) 1 % (0-10); EOSINOPHILS % (AUTO) 1 % (0-10); HEMATOCRIT 42 % (35-52); HEMOGLOBIN 14.3 G/DL (11.5-16.0); LYMPHOCYTES % (AUTO) 21 % (12-44); MEAN CORPUSCULAR HEMOGLOBIN 29 PG (25-34); MEAN CORPUSCULAR HGB CONC 34 G/DL (32-36); MEAN CORPUSCULAR VOLUME 85 FL (80-99); MEAN PLATELET VOLUME 10.5 FL (7.4-10.4); MONOCYTES % (AUTO) 7 % (0-12); NEUTROPHILS % (AUTO) 70 % (42-75); PLATELET COUNT 396 10^3/uL (130-400); WHITE BLOOD COUNT 12.8 10^3/uL (4.3-11.0)
[2019-08-10 17:42] LABS: BASOPHILS # (AUTO) 0.1 10^3/uL (0.0-0.1); EOSINOPHILS # (AUTO) 0.1 10^3/uL (0.0-0.3); LYMPHOCYTES # (AUTO) 2.7 X 10^3 (1.0-4.0); MONOCYTES # (AUTO) 0.9 X 10^3 (0.0-1.0)
[2019-08-10 17:53] LABS: BUN/CREATININE RATIO 13; CALCIUM 10.4 MG/DL (8.5-10.1); CARBON DIOXIDE 21 MMOL/L (21-32); CHLORIDE 104 MMOL/L (98-107); CREATININE SERUM 0.77 MG/DL (0.60-1.30); GFR ESTIMATED > 60; GLUCOSE 147 MG/DL (70-105); POTASSIUM 3.8 MMOL/L (3.6-5.0); SODIUM 139 MMOL/L (135-145)
[2019-08-10 17:54] LABS: ALANINE AMINOTRANSFERASE 11 U/L (0-55); ALBUMIN 4.3 GM/DL (3.2-4.5); ALKALINE PHOSPHATASE 76 U/L (40-136); BILIRUBIN,TOTAL 0.2 MG/DL (0.1-1.0); LIPASE 19 U/L (8-78); TOTAL PROTEIN 6.9 GM/DL (6.4-8.2)
[2019-08-10] MEDS ORDERED: IOHEXOL 350 MG/ML 100 ML (OMNIPAQUE 350) VIAL IV ONE (18:00)
[2019-08-10] MEDS ORDERED: HOLD METFORMIN - RECEIVED CONTRAST 20 ML VIAL IV SCH (18:00)
[2019-08-10] MEDS ORDERED: NS 100 ML (IVPB) BAG IV ONE (18:00)
[2019-08-10] MEDS ORDERED: CATHETER FLUSH 10 ML SYR IV PRN (18:00)
--- NOTE | 2019-08-10 18:58 | Diagnostic Imaging Report ---
INDICATION: Abdominal pain for 4 days, possible diverticulitis. Prior hysterectomy, and appendectomy. EXAMINATION: CT abdomen and pelvis with contrast, 08/10/2019. All CT scans use one or more of the following dose optimizing techniques: automated exposure control, MA and/or KvP adjustment based on patient size and exam type or iterative reconstruction. COMPARISON: None. FINDINGS: Lung bases are unremarkable for acute abnormality. Liver demonstrates diffuse fatty infiltration. Gallbladder is normal. Spleen unremarkable. There is marked prominence of both adrenal glands, nonspecific at this time. Outpatient nonemergent followup with dedicated adrenal protocol CT recommended for better characterization. Pancreas contains a cystic lesion towards the pancreatic tail. It measures 2.1 cm in greatest dimension. Its Hounsfield units are consistent with a fairly simple cyst, however, this should be followed for better characterization with a pancreatic protocol CT. The remaining pancreas is unremarkable. Cystic lesion seen bilaterally within the kidneys, likely cysts, too small for characterization. The gallbladder is unremarkable. There are diffuse atherosclerotic views along the course of the aorta. There is no ascites or free air. No focal inflammatory changes about the bowel loops. Findings of mild constipation seen in the right colon. Posterior findings throughout the lumbar region are noted with diffuse degenerative findings also seen. Lung bases are unremarkable. IMPRESSION: 1. Diffuse fatty infiltration throughout the liver. 2. Prominent cystic changes throughout both adrenal glands with a cystic lesion in the pancreatic tail, which are nonspecific see above discussion and recommendations. 3. Cystic lesion, left kidney, possibly not mentioned above but fairly simple in appearance. No acute abnormality appreciated other than mild constipation. Next number not mentioned above compression deformity is noted at the at L2 and L3. The L2 abnormality was present previously L3 abnormality is not seen appears radiograph from 2017 but is age-indeterminate clinical correlation is recommended Dictated by: Dictated on workstation # [id number]
[2019-08-10] MEDS ORDERED: TRIM/SULFAMETH 160/800 (SEPTRA DS) TAB PO STA (19:21)
[2019-08-10] MEDS ORDERED: ONDANSETRON 4 MG/2 ML (SDV) Z0FRAN IVP STA (19:21)
[2019-08-10] MEDS ORDERED: SULF1TAB35 PO (19:29)
[2019-08-10 19:39] VITALS: BP 138/89
== END 2019-08-10 19:39 | disposition home or self-care (01) ==
LOC: EDUNIT# 17:01 → ER FS 17:04
DX: K59.00 Constipation, unspecified (principal); N30.90 Cystitis, unspecified without hematuria; E27.8 Other specified disorders of adrenal gland; K86.2 Cyst of pancreas; J44.9 Chronic obstructive pulmonary disease, unspecified; I25.2 Old myocardial infarction; Z90.49 Acquired absence of other specified parts of digestive tract; Z90.710 Acquired absence of both cervix and uterus; Z88.0 Allergy status to penicillin; Z88.1 Allergy status to other antibiotic agents
CPT/HCPCS: 36415; 74177; 80053; 81000; 83690; 85025; 87088; 87430; 87804

== ENCOUNTER 2019-08-30 13:10 | Emergency (ER) | payer MEDICARE, MEDICAID ==
[~2019-08-30] VITALS: Ht 162.6 cm; Wt 86.3 kg
[~2019-08-30 13:10] MED LIST changes: +SULF1TAB35 PO
[2019-08-30] MEDS ORDERED: predniSONE 20 MG TAB PO ONE (13:45)
[2019-08-30] MEDS ORDERED: IBUPROFEN 600 MG (MOTRIN) TAB PO ONE (13:45)
[2019-08-30] MEDS ORDERED: RT-ALBUTEROL/IPRATROPIUM 3 ML (DUONEB) VIAL INH ONE (13:45)
[2019-08-30] MEDS ORDERED: HYDROcodone/APAP 5 MG/325 MG (LORTAB) TAB PO ONE (13:45)
--- NOTE | 2019-08-30 13:48 | ED General ---
General Chief Complaint: Cough/Cold/Flu Symptoms Stated Complaint: SOB,RUNNY NOSE Nursing Triage Note: Patient reports fever, sore throat, cough, shortness of breath, and nasal discharge since last night. Nursing Sepsis Screen: No Definite Risk History of Present Illness Date Seen by Provider: Aug 30, 2019 Time Seen by Provider: 13:45 Initial Comments Patient presenting to emergency department for evaluation of multiple symptoms including fevers chills cough congestion arthralgias myalgias shortness of breath. All of these symptoms started suddenly yesterday evening and she has tried taking Tylenol for pain and fever but still continues to have pain. She denies any vomiting diarrhea syncope. She says that she has a history of COPD and is currently not on any steroids or antibiotics. The cough is productive of some yellowish sputum. Fevers have not been measured. Shortness of breath is primarily present when she is up walking around. She is in no obvious distress with normal vital signs. Allergies and Home Medications Allergies Coded Allergies: Penicillins (Verified Allergy, Unknown, 05/28/19) azithromycin (Verified Allergy, Unknown, 05/28/19) cefaclor (Verified Allergy, Unknown, 08/30/19) cephalexin (Verified Allergy, Unknown, 05/28/19) dexamethasone (Verified Allergy, Unknown, 08/30/19) erythromycin base (Verified Allergy, Unknown, 08/30/19) levofloxacin (Verified Allergy, Unknown, 08/30/19) methylprednisolone (Verified Allergy, Unknown, 08/30/19) tetracycline (Verified Allergy, Unknown, 05/28/19) Home Medications Albuterol Sulfate 1 Puff Puff, 2 PUFF IH Q4H 1 PUFF = 90 MCG Prescribed by: FREDRICK MOORE on 02/06/19 030 Doxycycline Hyclate 100 Mg Tablet, 100 MG PO BID Prescribed by: FREDRICK MOORE on 02/06/19 030 Orphenadrine Citrate 100 Mg Tablet.er, 100 MG PO BID Prescribed by: MACARENA CLARKE on 05/28/192207 Prednisone 10 Mg Tab.ds.pk, 10 MG PO DAILY Take 6 tabs(60mg)daily,decrease by 1 tab(10MG)daily. Prescribed by: FREDRICK MOORE on 02/06/19 030 Sulfamethoxazole/Trimethoprim 1 Each Tablet, 1 EACH PO BID Prescribed by: MACARENA CLARKE on 08/10/19 1929 [Flexeril] , 10 twice a day Prescribed by: BRISEIDA WILL on 04/22/17 1511 Patient Home Medication List Home Medication List Reviewed: Yes Review of Systems Review of Systems Constitutional: chills, fever EENTM: throat pain Respiratory: cough, short of breath Cardiovascular: no symptoms reported Gastrointestinal: no symptoms reported Genitourinary: no symptoms reported Musculoskeletal: joint pain, muscle pain Skin: no symptoms reported Psychiatric/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: No Symptoms Reported All Other Systems Reviewed Negative Unless Noted: Yes Past Strydhi-Czodso-Udfqrv Hx Patient Social History Alcohol Use: Denies Use Recreational Drug Use: Yes Drug of Choice: marijuana Smoking Status: Current Everyday Smoker Type Used: Cigarettes 2nd Hand Smoke Exposure: No Recent Foreign Travel: No Contact w/Someone Who Travel: No Recent Infectious Disease Expo: No Recent Hopitalizations: No Physical Abuse: No Sexual Abuse: No Mistreated: No Fear: No Seasonal Allergies Seasonal Allergies: No Past Medical History Surgeries: Yes (BACK SX) Appendectomy, Brain Shunt, Hysterectomy, Orthopedic Respiratory: No COPD Cardiac: No Heart Attack, Hypertension 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: No (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 oz. 77.300077bf; 32.00 BMI Method:Stated General Appearance: No Apparent Distress, WD/WN HEENT: PERRL/EOMI Neck: Supple Respiratory: No Respiratory Distress, Wheezing Cardiovascular: Regular Rate, Rhythm Gastrointestinal: Non Tender, Soft Back: Normal Inspection Extremity: Normal Capillary Refill Neurologic/Psychiatric: Alert, Oriented x3 Skin: Warm/Dry Progress/Results/Core Measures Suspected Sepsis Recent Fever Within 48 Hours: No Infection Criteria Present: None New/Unexplained Altered Menta: No Sepsis Screen: No Definite Risk SIRS Temperature: Pulse: 90 Respiratory Rate: 20 Blood Pressure 128 /73 Mean: 91 Results/Orders Lab Results Laboratory Tests Test 08/30/19 13:25 Range/Units Group A Streptococcus Screen NEGATIVE NEGATIVE Micro Results Microbiology 08/30/19 Influenza Types A,B Antigen ([facility]ON) - Final, Complete My Orders Orders - FREDRICK LEOS DO Rapid Strep A Screen (08/30/19 13:25) Influenza A And B Antigens (08/30/19 13:25) Chest 1 View Ap/Pa Only (08/30/19 13:25) Prednisone Tablet (Deltasone Tablet) (08/30/19 13:45) Albuterol/Ipra Inhalation Soln (Duoneb I (08/30/19 13:45) Hydrocodone/Apap 5/325 Tablet (Lortab 5 (08/30/19 13:45) Svn Small Volume Nebulizer (08/30/19 13:34) Ibuprofen Tablet (Motrin Tablet) (08/30/19 13:45) Medications Given in ED Current Medications Medications Dose Ordered Sig/Sandra Route Start Time Stop Time Status Last Admin Dose Admin Acetaminophen/ Hydrocodone Bitart 2 tab ONCE ONCE PO 08/30/19 13:45 08/30/19 13:46 DC 08/30/19 13:52 2 TAB Albuterol/ Ipratropium 3 ml ONCE ONCE INH 08/30/19 13:45 08/30/19 13:46 DC 08/30/19 13:52 3 ML Ibuprofen 600 mg ONCE ONCE PO 08/30/19 13:45 08/30/19 13:46 DC 08/30/19 13:52 600 MG Prednisone 50 mg ONCE ONCE PO 08/30/19 13:45 08/30/19 13:46 DC 08/30/19 13:52 50 MG Vital Signs/I&O 08/30/19 08/30/19 08/30/19 13:10 13:22 14:04 Temp 37.5 Pulse 90 Resp 20 B/P (MAP) 128/73 (91) Pulse Ox 97 O2 Delivery Room Air Room Air Room Air Capillary Refill : Less Than 3 Seconds Blood Pressure Mean: 91 Progress Note : Progress Note Symptoms are most consistent with a flu child treat her supportively check strep swab flu swab chest x-ray and reassess. Patient's workup came back negative however she said she felt much better after treatment here and is having no dyspnea and her repeat lung sounds are improved with less wheezing and good aeration. Her vital signs continue be normal including a normal heart rate and oxygen saturation at 98% on room air. I told patient despite the negative influenza testing I have a very high suspicion that this is influenza and they given her history of COPD she is a candidate for Tamiflu. She asked about all the benefits and risks department and she said she did not want to take it. She said she rather get started on a Z-Ousmane. I told her that azithromycin is listed as one of her allergies and she said that she is not really allergic to it and she does not know why that is listed as an allergy and she has taken it many times before in the past. I told patient is likely that it will not help her in because her side effects. She verbalized understanding but consented to treatment with Zithromax. I told her to use her inhaler every 4 hours drink plenty of fluids take Tylenol and ibuprofen for pain and I will prescribe her prednisone. I recommended PCP follow-up within 2-3 days to ensure improvement and come back to the ED with any worsening pain shortness of breath or other general concerns. Patient aware and agreeable with plan and verbalized understanding of the above instructions. Departure Impression Primary Impression: COPD exacerbation Additional Impression: Influenza-like symptoms Disposition: 01 HOME, SELF-CARE Condition: Stable Departure-Patient Inst. Referrals: TARUN LACY DO (PCP/Family) Primary Care Physician Patient Instructions: Flu, Adult (DC) Add. Discharge Instructions: Take Ibuprofen 600mg every 6 hours and alternate with 650mg of tylenol every 6 hours. Drink plenty of fluids. Inhaler every 4 hours. Follow with PCP this week. Come back with any concerns. Thank you! All discharge instructions reviewed with patient and/or family. Voiced understanding. Scripts Prednisone (Prednisone) 20 Mg Tab 60 MG PO DAILY, #12 TAB 0 Refills Prov: FREDRICK LEOS DO 08/30/19 Azithromycin (Zithromax) 250 Mg Tablet 250 MG PO UD, #6 TAB TAKE 2 TABLETS TODAY, THEN TAKE 1 TABLET DAILY FOR 4 MORE DAYS Prov: FREDRICK LEOS DO 08/30/19 FREDRICK LEOS DO Aug 30, 2019 13:48
--- NOTE | 2019-08-30 13:48 | Diagnostic Imaging Report ---
INDICATION: Cough and fever. EXAMINATION: Portable chest at 1:40 p.m. FINDINGS: Heart size and pulmonary vascularity are normal. Lungs are clear. There are no effusions or pneumothoraces. IMPRESSION: Negative chest. Dictated by: Dictated on workstation # [id number]
[2019-08-30] MEDS ORDERED: AZIT250T PO (14:34)
[2019-08-30] MEDS ORDERED: PRD20T PO (14:34)
[2019-08-30 14:49] VITALS: BP 109/74
== END 2019-08-30 14:53 | disposition home or self-care (01) ==
LOC: EDUNIT# 13:10 → ER FS 13:11
DX: J44.1 Chronic obstructive pulmonary disease with (acute) exacerbation (principal); R50.9 Fever, unspecified; I25.2 Old myocardial infarction; F17.210 Nicotine dependence, cigarettes, uncomplicated; Z88.0 Allergy status to penicillin; Z88.1 Allergy status to other antibiotic agents; Z88.8 Allergy status to other drugs, medicaments and biological substances; Z79.52 Long term (current) use of systemic steroids
CPT/HCPCS: 71045; 87430; 87804; 94640

== ENCOUNTER 2020-02-07 19:41 | Emergency (ER) | payer MEDICARE, MEDICAID ==
[~2020-02-07] VITALS: Ht 152.4 cm; Wt 79.5 kg
[~2020-02-07 19:41] MED LIST changes: +ACHYD1T; +AZIT250T PO; -HYDR-3820; +PRD20T PO
[2020-02-07 19:53] VITALS: BP 147/60
--- NOTE | 2020-02-07 20:14 | ED Lower Extremity ---
General Chief Complaint: Lower Extremity Stated Complaint: FALL,FOOT/KNEE PAIN Nursing Triage Note: pt states she fell while mowing yard after stepping in a hole injuring left foot and right knee Nursing Sepsis Screen: No Definite Risk History of Present Illness Date Seen by Provider: Feb 07, 2020 Time Seen by Provider: 20:00 Initial Comments Patient is here with injury to her left ankle inversion injury stepping in a hole she was walking across the yard looking for scrap metal. Assert that ankle before has a previous injury on the right knee has a brace on that and evidently went down on the knee but that is not bothering her as much as the ankle is. Difficult for any range of motion. Onset: this evening Pain/Injury Location: left ankle Method of Injury: fell, twisted Modifying Factors: Improves With Immobilization; Worse With Movement Allergies and Home Medications Allergies Coded Allergies: Penicillins (Verified Allergy, Unknown, 05/28/19) azithromycin (Verified Allergy, Unknown, 05/28/19) cefaclor (Verified Allergy, Unknown, 08/30/19) cephalexin (Verified Allergy, Unknown, 05/28/19) dexamethasone (Verified Allergy, Unknown, 08/30/19) erythromycin base (Verified Allergy, Unknown, 08/30/19) levofloxacin (Verified Allergy, Unknown, 08/30/19) methylprednisolone (Verified Allergy, Unknown, 08/30/19) tetracycline (Verified Allergy, Unknown, 05/28/19) Home Medications Albuterol Sulfate 1 Puff Puff, 2 PUFF IH Q4H 1 PUFF = 90 MCG Prescribed by: FREDRICK MOORE on 02/06/19 030 Azithromycin 250 Mg Tablet, 250 MG PO UD TAKE 2 TABLETS TODAY, THEN TAKE 1 TABLET DAILY FOR 4 MORE DAYS Prescribed by: FREDRICK LEOS on 08/30/19 1434 Doxycycline Hyclate 100 Mg Tablet, 100 MG PO BID Prescribed by: FREDRICK MOORE on 02/06/19 030 Orphenadrine Citrate 100 Mg Tablet.er, 100 MG PO BID Prescribed by: MACARENA CLARKE on 05/28/192207 Prednisone 10 Mg Tab.ds.pk, 10 MG PO DAILY Take 6 tabs(60mg)daily,decrease by 1 tab(10MG)daily. Prescribed by: FREDRICK MOORE on 02/06/19 030 Prednisone 20 Mg Tab, 60 MG PO DAILY Prescribed by: FREDRICK LEOS on 08/30/19 1434 Sulfamethoxazole/Trimethoprim 1 Each Tablet, 1 EACH PO BID Prescribed by: MACARENA CLARKE on 08/10/19 1929 [Flexeril] , 10 twice a day Prescribed by: BRISEIDA WILL on 04/22/17 1511 Patient Home Medication List Home Medication List Reviewed: Yes Review of Systems Constitutional: no symptoms reported Musculoskeletal: No back pain; joint pain, joint swelling Skin: No lesions, No rash Psychiatric/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: Denies Numbness, Denies Tingling Past Ydgwtrf-Racqos-Mfdbin Hx Past Med/Social Hx: Reviewed Nursing Past Med/Soc Hx Patient Social History Alcohol Use: Denies Use Recreational Drug Use: Yes Drug of Choice: marijuana Type Used: Cigarettes 2nd Hand Smoke Exposure: No Recent Foreign Travel: No Contact w/Someone Who Travel: No Recent Infectious Disease Expo: No Recent Hopitalizations: No Physical Abuse: No Sexual Abuse: No Mistreated: No Fear: No Seasonal Allergies Seasonal Allergies: No Past Medical History Surgeries: Yes (BACK SX) Appendectomy, Brain Shunt, Hysterectomy, Orthopedic Respiratory: No COPD Cardiac: No Heart Attack, Hypertension 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 oz. [id number]; 34.00 BMI Method:Stated General Appearance: WD/WN, mild distress Hips: bilateral hip non-tender Knees: right knee soft tissue tenderness Ankles: left ankle other (poor range of motion with little swelling difficult to palpate it or movement at all due to patient's pain.) Feet: left foot other (difficult to ascertain how much of the foot is involved to pain on any account with the ankle.) Neurologic/Tendon: normal sensation, no evidence tendon injury Neurologic/Psychiatric: no motor/sensory deficits, alert, normal mood/affect, oriented x 3 Progress/Results/Core Measures Results/Orders My Orders Orders - VINCENT ESCOTO JR, MD Ankle 3 View Left (02/07/20 20:08) Vital Signs/I&O 02/07/20 19:53 Temp 36.0 Pulse 75 Resp 16 B/P (MAP) 147/60 (89) Pulse Ox 100 O2 Delivery Room Air Blood Pressure Mean: 89 Departure Communication (Admissions) Radiology seen a small what appears to be avulsion injury medially of the seems inconsequential and could be related to just a sprain of the ankle which I do feel this what happened here we'll place in a stirrup brace crutch walking follow-up with her PCP later in the week. Impression Primary Impression: Sprain and strain of ankle Disposition: 01 HOME, SELF-CARE Condition: Stable Departure-Patient Inst. Referrals: TARUN LACY DO (PCP/Family) Primary Care Physician Patient Instructions: Ankle Sprain (DC) VINCENT ESCOTO JR, MD Feb 07, 2020 20:13
--- NOTE | 2020-02-07 20:27 | Diagnostic Imaging Report ---
INDICATION: Left ankle injury with pain EXAM: AP, oblique and lateral views of the left ankle are obtained. FINDINGS: There is a tiny ossific fragment projecting along the medial aspect of the ankle joint. This could represent a small avulsion fracture fragment of indeterminate age. Otherwise no fracture or malalignment is seen. IMPRESSION: 1. Minimal ossific fragment is seen along the medial aspect of the ankle which could represent avulsion fracture. There is no significant surrounding edema and this could be nonacute nature. Clinical correlation to site of pain would be useful. Dictated by: Dictated on workstation # [id number]
== END 2020-02-07 20:44 | disposition home or self-care (01) ==
LOC: EDUNIT# 19:41 → ER FS 19:42
DX: S93.402A Sprain of unspecified ligament of left ankle, initial encounter (principal); J44.9 Chronic obstructive pulmonary disease, unspecified; Z88.0 Allergy status to penicillin; Z88.1 Allergy status to other antibiotic agents; Z88.8 Allergy status to other drugs, medicaments and biological substances; Z79.52 Long term (current) use of systemic steroids; X50.1XXA Overexertion from prolonged static or awkward postures, initial encounter
CPT/HCPCS: 73610; 99282; L4350

== ENCOUNTER 2020-03-13 17:29 | Emergency (ER) | payer MEDICARE, MEDICAID ==
[~2020-03-13] VITALS: Ht 162.5 cm; Wt 87.2 kg
[2020-03-13] MEDS ORDERED: NS IV 1000 ML 1,000 ML IV SCH (17:45)
[2020-03-13] MEDS ORDERED: DICYCLOMINE 10 MG/ML (BENTYL) 2 ML AMP IM ONE (17:45)
--- NOTE | 2020-03-13 17:53 | ED Abdominal Pain ---
General Stated Complaint: ABD PAIN/SWELLING Source of Information: Patient Exam Limitations: No Limitations (CONNIE HOWELL DO) History of Present Illness Date Seen by Provider: Mar 13, 2020 Time Seen by Provider: 17:40 Initial Comments The patient is a 60-year-old female who presents for evaluation of left upper and lateral abdominal discomfort and subjective swelling which she noticed today. She states that she called her doctor's office and was told to come to the emergency department to be evaluated. She is having some mild discomfort. She denies fevers or chills, nausea or vomiting, diarrhea, rectal bleeding, chest pain or shortness of breath, urinary complaints, palpitations, or syncope. She does state that she has been feeling fatigued lately and finds that she quickly falls asleep when she doesn't want to. She is alert and oriented 4, micah m, and appears to be in no distress at this time. She reports a history of hepatitis C and diverticulitis. Timing/Duration: 1 Day Severity/Quality: Mild Location: [facility] Radiation: No Radiation Associated Symptoms: Fatigue (CONNIE HOWELL DO) Allergies and Home Medications Allergies Coded Allergies: Penicillins (Verified Allergy, Unknown, 05/28/19) azithromycin (Verified Allergy, Unknown, 05/28/19) cefaclor (Verified Allergy, Unknown, 08/30/19) cephalexin (Verified Allergy, Unknown, 05/28/19) dexamethasone (Verified Allergy, Unknown, 08/30/19) erythromycin base (Verified Allergy, Unknown, 08/30/19) levofloxacin (Verified Allergy, Unknown, 08/30/19) methylprednisolone (Verified Allergy, Unknown, 08/30/19) tetracycline (Verified Allergy, Unknown, 05/28/19) Home Medications Albuterol Sulfate 1 Puff Puff, 2 PUFF IH Q4H 1 PUFF = 90 MCG Prescribed by: FREDRICK MOORE on 02/06/19 0303 Azithromycin 250 Mg Tablet, 250 MG PO UD TAKE 2 TABLETS TODAY, THEN TAKE 1 TABLET DAILY FOR 4 MORE DAYS Prescribed by: FREDRICK LEOS on 08/30/19 1434 Doxycycline Hyclate 100 Mg Tablet, 100 MG PO BID Prescribed by: FREDRICK MOORE on 02/06/19 0306 Orphenadrine Citrate 100 Mg Tablet.er, 100 MG PO BID Prescribed by: MACARENA CLARKE on 05/28/192207 Prednisone 10 Mg Tab.ds.pk, 10 MG PO DAILY Take 6 tabs(60mg)daily,decrease by 1 tab(10MG)daily. Prescribed by: FREDRICK MOORE on 02/06/19 0302 Prednisone 20 Mg Tab, 60 MG PO DAILY Prescribed by: FREDRICK LEOS on 08/30/19 1434 Sulfamethoxazole/Trimethoprim 1 Each Tablet, 1 EACH PO BID Prescribed by: MACARENA CLARKE on 08/10/19 192 [Flexeril] , 10 twice a day Prescribed by: BRISEIDA WILL on 04/22/17 1511 Patient Home Medication List Home Medication List Reviewed: Yes (CONNIE HOWELL DO) Review of Systems Review of Systems Constitutional: weakness EENTM: No Symptoms Reported Respiratory: No Symptoms Reported Cardiovascular: No Symptoms Reported Gastrointestinal: Abdomen Distended, Abdominal Pain Genitourinary: No Symptoms Reported Musculoskeletal: no symptoms reported Skin: no symptoms reported Psychiatric/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: No Symptoms Reported Endocrine: No Symptoms Reported Hematologic/Lymphatic: No Symptoms Reported (CONNIE HOWELL DO) All Other Systems Reviewed Negative Unless Noted: Yes (CONNIE HOWELL DO) Past Iyhpfqy-Zhykoq-Zngowm Hx Past Med/Social Hx: Reviewed Nursing Past Med/Soc Hx (CONNIE HOWELL DO) Patient Social History Drug of Choice: marijuana Type Used: Cigarettes 2nd Hand Smoke Exposure: No Recent Foreign Travel: No Contact w/Someone Who Travel: No Recent Hopitalizations: No (CONNIE HOWELL DO) Seasonal Allergies Seasonal Allergies: No (CONNIE HOWELL DO) Past Medical History Surgeries: Yes (BACK SX) Appendectomy, Brain Shunt, Hysterectomy, Orthopedic Respiratory: No COPD Cardiac: No Heart Attack, Hypertension 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: No (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 oz. 77.446197ux; 34.00 BMI Method:Stated General Appearance: WD/WN, no apparent distress HEENT: PERRL/EOMI, normal ENT inspection Respiratory: lungs clear, normal breath sounds, no respiratory distress, no accessory muscle use Cardiovascular: regular rate, rhythm, no edema, no JVD, no murmur Gastrointestinal: normal bowel sounds, soft, no pulsatile mass, tenderness (mild left upper quadrant left lateral abdominal tenderness, no distention or abdominal swelling appreciated on exam, no guarding, soft, no rigidity) Extremities: normal range of motion, normal inspection, no pedal edema, no calf tenderness Back: normal inspection, no CVA tenderness 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, no motor/sensory deficits, alert, normal mood/affect, oriented x 3 Skin: normal color, warm/dry (CONNIE HOWELL DO) Progress/Results/Core Measures Results/Orders Lab Results Laboratory Tests Test 03/13/20 17:30 03/13/20 17:45 Range/Units Urine Color YELLOW Urine Clarity CLEAR Urine pH 6.5 5-9 Urine Specific Williams 1.020 1.016-1.022 Urine Protein NEGATIVE NEGATIVE Urine Glucose (UA) NEGATIVE NEGATIVE Urine Ketones NEGATIVE NEGATIVE Urine Nitrite NEGATIVE NEGATIVE Urine Bilirubin NEGATIVE NEGATIVE Urine Urobilinogen 0.2 < = 1.0 MG/DL Urine Leukocyte Esterase 1+ H NEGATIVE Urine RBC (Auto) NEGATIVE NEGATIVE Urine RBC 0-2 /HPF Urine WBC 10-25 H /HPF Urine Squamous Epithelial Cells 0-2 /HPF Urine Crystals NONE /LPF Urine Bacteria TRACE /HPF Urine Casts NONE /LPF Urine Mucus NEGATIVE /LPF Urine Culture Indicated YES White Blood Count 8.9 4.3-11.0 10^3/uL Red Blood Count 4.71 4.35-5.85 10^6/uL Hemoglobin 13.9 11.5-16.0 G/DL Hematocrit 41 35-52 % Mean Corpuscular Volume 87 80-99 FL Mean Corpuscular Hemoglobin 30 25-34 PG Mean Corpuscular Hemoglobin Concent 34 32-36 G/DL Red Cell Distribution Width 14.6 H 10.0-14.5 % Platelet Count 383 130-400 10^3/uL Mean Platelet Volume 10.4 7.4-10.4 FL Neutrophils (%) (Auto) 63 42-75 % Lymphocytes (%) (Auto) 28 12-44 % Monocytes (%) (Auto) 6 0-12 % Eosinophils (%) (Auto) 2 0-10 % Basophils (%) (Auto) 1 0-10 % Neutrophils # (Auto) 5.6 1.8-7.8 X 10^3 Lymphocytes # (Auto) 2.5 1.0-4.0 X 10^3 Monocytes # (Auto) 0.5 0.0-1.0 X 10^3 Eosinophils # (Auto) 0.2 0.0-0.3 10^3/uL Basophils # (Auto) 0.1 0.0-0.1 10^3/uL Sodium Level 142 135-145 MMOL/L Potassium Level 3.5 L 3.6-5.0 MMOL/L Chloride Level 103 98-107 MMOL/L Carbon Dioxide Level 27 21-32 MMOL/L Anion Gap 12 5-14 MMOL/L Blood Urea Nitrogen 16 7-18 MG/DL Creatinine 0.75 0.60-1.30 MG/DL Estimat Glomerular Filtration Rate > 60 BUN/Creatinine Ratio 21 Glucose Level 140 H 70-105 MG/DL Calcium Level 9.8 8.5-10.1 MG/DL Corrected Calcium 9.4 8.5-10.1 MG/DL Total Bilirubin 0.3 0.1-1.0 MG/DL Aspartate Amino Transf (AST/SGOT) 26 5-34 U/L Alanine Aminotransferase (ALT/SGPT) 13 0-55 U/L Alkaline Phosphatase 76 40-136 U/L Troponin I < 0.30 <0.30 NG/ML Total Protein 7.3 6.4-8.2 GM/DL Albumin 4.5 3.2-4.5 GM/DL Amylase Level 55 25-125 U/L (BRAYAN MA DO) Medications Given in ED Current Medications Medications Dose Ordered Sig/Sandra Route Start Time Stop Time Status Last Admin Dose Admin Dicyclomine HCl 20 mg ONCE ONCE IM 03/13/20 17:45 03/13/20 17:47 DC 03/13/20 17:58 20 MG Iohexol 100 ml ONCE ONCE IV 03/13/20 18:00 03/13/20 18:01 DC 03/13/20 18:37 100 ML Sodium Chloride 10 ml NEEDED PRN IV 03/13/20 18:00 03/13/20 18:38 10 ML Sodium Chloride 100 ml ONCE ONCE IV 03/13/20 18:00 03/13/20 18:01 DC 03/13/20 18:37 100 ML (BRAYAN MA DO) Vital Signs/I&O 03/13/20 17:35 Temp 36.6 Pulse 83 Resp 20 B/P (MAP) 158/107 (124) Pulse Ox 98 O2 Delivery Room Air (BRAYAN MA DO) Progress Progress Note : Progress Note @1800 - Pt care transferred to Dr. Brayan Ma at his time. (CONNIE HOWELL DO) Departure Communication (Admissions) KKG, CT and lab reviewed and reassuring. Patient completed course of antibiotics 3 days ago for treatment of urinary tract infection with cultures positive for Escherichia coli. Denies dysuria, flank pain. No findings of pyelonephritis on imaging studies. IV fluids and pain medication given with resolution of symptoms. Vital signs stable. Recommend watchful waiting,supportive care and review of urine culture prior to reinitiating antibiotics and close PCP follow-up.. Will place on anti- spasmodic agent. Return precautions reviewed. Patient verbalizes understanding agreement discharge instructions prior to departure. (BRAYAN MA DO) Impression Primary Impression: Abdominal pain Disposition: HOME, SELF-CARE Condition: Stable Departure-Patient Inst. Decision time for Depature: 19:04 (BRAYAN MA DO) Referrals: TARUN LACY DO (PCP/Family) Primary Care Physician Patient Instructions: Severe Abdominal Pain, Adult (DC) Add. Discharge Instructions: You were evaluated emergency department for abdominal pain. CT, EKG and lab work were performed and are reassuring. The exact cause of your symptoms has not been determined. Please take dicyclomine as directed if symptoms return and follow-up with your PCP in 2-3 days for urine culture results. Meantime if he develop new or worsening symptoms, return to the emergency department. Scripts Dicyclomine HCl (Dicyclomine HCl) 20 Mg Tablet 20 MG PO QID, #20 TAB Prov: BRAYAN MA DO 03/13/20 CONNIE HOWELL DO Mar 13, 2020 17:53 BRAYAN MA DO Mar 13, 2020 19:07
[2020-03-13] MEDS ORDERED: NS 100 ML (IVPB) BAG IV ONE (18:00)
[2020-03-13] MEDS ORDERED: CATHETER FLUSH 10 ML SYR IV PRN (18:00)
[2020-03-13] MEDS ORDERED: IOHEXOL 350 MG/ML 100 ML (OMNIPAQUE 350) VIAL IV ONE (18:00)
[2020-03-13] MEDS ORDERED: HOLD METFORMIN - RECEIVED CONTRAST 20 ML VIAL IV SCH (18:00)
[2020-03-13 18:04] LABS: WHITE BLOOD COUNT 8.9 10^3/uL (4.3-11.0)
[2020-03-13 18:05] LABS: BASOPHILS # (AUTO) 0.1 10^3/uL (0.0-0.1); BASOPHILS % (AUTO) 1 % (0-10); EOSINOPHILS # (AUTO) 0.2 10^3/uL (0.0-0.3); EOSINOPHILS % (AUTO) 2 % (0-10); HEMATOCRIT 41 % (35-52); HEMOGLOBIN 13.9 G/DL (11.5-16.0); LYMPHOCYTES # (AUTO) 2.5 X 10^3 (1.0-4.0); LYMPHOCYTES % (AUTO) 28 % (12-44); MEAN CORPUSCULAR HEMOGLOBIN 30 PG (25-34); MEAN CORPUSCULAR HGB CONC 34 G/DL (32-36); MEAN CORPUSCULAR VOLUME 87 FL (80-99); MEAN PLATELET VOLUME 10.4 FL (7.4-10.4); MONOCYTES # (AUTO) 0.5 X 10^3 (0.0-1.0); MONOCYTES % (AUTO) 6 % (0-12); NEUTROPHILS # (AUTO) 5.6 X 10^3 (1.8-7.8); NEUTROPHILS % (AUTO) 63 % (42-75); PLATELET COUNT 383 10^3/uL (130-400); RED CELL DISTRIBUTION WIDTH 14.6 % (10.0-14.5)
[2020-03-13 18:11] LABS: BACTERIA,URINE TRACE /HPF; BILIRUBIN,URINE NEGATIVE (NEGATIVE); CLARITY,URINE CLEAR; COLOR,URINE YELLOW; GLUCOSE, URINE (UA) NEGATIVE (NEGATIVE); KETONES,URINE NEGATIVE (NEGATIVE); LEUKOCYTE ESTERASE ,URINE 1+ (NEGATIVE); NITRITE,URINE NEGATIVE (NEGATIVE); PH,URINE 6.5 (5-9); PROTEIN,URINE NEGATIVE (NEGATIVE); RBC,URINE 0-2 /HPF; SQUAMOUS EPITHELIAL CELL,UR 0-2 /HPF
[2020-03-13 18:15] LABS: BILIRUBIN,TOTAL 0.3 MG/DL (0.1-1.0); BUN/CREATININE RATIO 21; CALCIUM 9.8 MG/DL (8.5-10.1); CARBON DIOXIDE 27 MMOL/L (21-32); CHLORIDE 103 MMOL/L (98-107); CREATININE SERUM 0.75 MG/DL (0.60-1.30); GFR ESTIMATED > 60; GLUCOSE 140 MG/DL (70-105); POTASSIUM 3.5 MMOL/L (3.6-5.0); SODIUM 142 MMOL/L (135-145)
[2020-03-13 18:16] LABS: ALANINE AMINOTRANSFERASE 13 U/L (0-55); ALBUMIN 4.5 GM/DL (3.2-4.5); ALKALINE PHOSPHATASE 76 U/L (40-136); AMYLASE 55 U/L (25-125); TOTAL PROTEIN 7.3 GM/DL (6.4-8.2)
--- NOTE | 2020-03-13 18:46 | NUR ---
Report to Marjorie FLANAGAN.
--- NOTE | 2020-03-13 18:58 | Diagnostic Imaging Report ---
PROCEDURE: CT abdomen and pelvis with contrast. TECHNIQUE: Multiple contiguous axial images were obtained through the abdomen and pelvis after administration of intravenous contrast. Auto Exposure Controls were utilized during the CT exam to meet ALARA standards for radiation dose reduction. INDICATION: Left upper quadrant pain, history of multiple abdominal cysts. Compared with abdominal pelvic CT 08/10/2019. Unilocular cyst associated with the pancreatic tail has a diameter of 1.7 cm, previously 2 cm. The remaining pancreatic parenchyma nonfocal aside from some fatty replacement at its head. Low-density thickening and nodularity of the bilateral adrenal stable presumed adenomatous hyperplasia. The liver, bile ducts, spleen unremarkable. The kidneys are unobstructed. Tiny left upper pole simple benign renal cortical cyst. No suspicious renal mass. No hydroureteronephrosis. The bowel loops unobstructed, nonfocal and nonacute. No ascites, abscess, hematoma or acute fluid collection. There is few sigmoid diverticuli without diverticulitis. The aorta is atherosclerotic without aneurysm. There are postsurgical changes to the lower lumbar spine. No acute bony pathology. No lymphadenopathy. No mass. No ascites. No fluid collection. IMPRESSION: Pancreatic and renal cyst decreased in size from prior. No new lesion. No suspicious mass. No obstructive phenomena, inflammatory process, ascites or acute appearing abnormalities. Dictated by: Dictated on workstation # [id number]
[2020-03-13] MEDS ORDERED: DICY20TA10 PO (19:06)
[2020-03-13 19:11] VITALS: BP 155/78
== END 2020-03-13 19:21 | disposition home or self-care (01) ==
LOC: EDUNIT# 17:29 → ER FS 17:30
DX: R10.12 Left upper quadrant pain (principal); J44.9 Chronic obstructive pulmonary disease, unspecified; Z88.0 Allergy status to penicillin; Z88.1 Allergy status to other antibiotic agents; Z88.8 Allergy status to other drugs, medicaments and biological substances; Z79.52 Long term (current) use of systemic steroids
CPT/HCPCS: 36415; 74177; 80053; 81000; 82150; 84484; 85025; 87088; 93005

== ENCOUNTER → 2020-12-05 | Outpatient (CLI) | payer MEDICARE, MEDICAID ==
[~2020-12-05] MED LIST changes: +DICY20TA10 PO; +SERT-414; -SERT100T8
--- NOTE | 2020-12-05 16:38 | Diagnostic Imaging Report ---
INDICATION: Dyspnea PA and lateral views of the chest are obtained with comparison made to the study of 08/30/2019. FINDINGS: Heart size and pulmonary vascularity are within normal limits, and the lungs are clear, bilaterally. IMPRESSION: Unremarkable chest. Dictated by: Dictated on workstation # [id number]
== END ==
LOC: RAD FS 15:38
PROVIDERS: ATTEND Emergency Medicine
DX: R06.02 Shortness of breath (principal); R05 Cough
CPT/HCPCS: 71046

== ENCOUNTER → 2021-04-05 | Outpatient (CLI) | payer MEDICARE, MEDICAID ==
[~2021-04-05] MED LIST changes: -SULF1TAB35 PO; +SULF1TAB38 PO
--- NOTE | 2021-04-05 16:44 | Diagnostic Imaging Report ---
INDICATION: Right knee pain Two views of the right knee show no fracture, dislocation or other acute abnormalities. IMPRESSION: Unremarkable right knee. Dictated by: Dictated on workstation # [id number]
--- NOTE | 2021-04-05 18:35 | Diagnostic Imaging Report ---
INDICATION: Pain, prior fracture of the proximal tibia 5 years ago. EXAMINATION: Right tibia and fibula, 04/05/2021. FINDINGS: 2 views of the tibia and fibula. There are no fractures or dislocations. Joint spaces preserved. Soft tissues unremarkable. IMPRESSION: 1. No acute osseous abnormality. Dictated by: Dictated on workstation # [id number]
== END ==
LOC: RAD FS 15:23
PROVIDERS: ATTEND Nurse Practitioner Family
DX: M25.571 Pain in right ankle and joints of right foot (principal); M25.561 Pain in right knee; Z87.81 Personal history of (healed) traumatic fracture
CPT/HCPCS: 73560; 73590

== ENCOUNTER 2021-05-27 07:45 | Emergency (ER) | payer MEDICARE, MEDICAID ==
[~2021-05-27] VITALS: Ht 162.6 cm; Wt 74.8 kg
--- NOTE | 2021-05-27 08:05 | ED Abdominal Pain ---
General Stated Complaint: ABD PAIN Source of Information: Patient Exam Limitations: No Limitations History of Present Illness Date Seen by Provider: May 27, 2021 Time Seen by Provider: 07:47 Initial Comments 61-year-old female with past medical history of diverticulitis and hepatitis C coming in via EMS due to lower abdominal pain. She says it started last night and feels similar to an episode of diverticulitis. Pain is constant, sharp and cramping, and nothing seems to make it better or worse. Has had she says at least 6 formed bowel movements since then without any blood in it as well as some nausea without any vomiting. Otherwise denying any chest pain, shortness of breath, vomiting, diarrhea, hematuria, dysuria, weakness, numbness, rash, vaginal discharge, or any other concerns. She is postmenopausal. She is on buprenorphine, and often does not like to take it because of the constipation, and says she has not taken it in a couple days. Of note, a few days ago she went to an emergency department due to chest pain and was released after her work-up. Allergies and Home Medications Allergies Coded Allergies: Penicillins (Verified Allergy, Unknown, 05/28/19) azithromycin (Verified Allergy, Unknown, 05/28/19) cefaclor (Verified Allergy, Unknown, 08/30/19) cephalexin (Verified Allergy, Unknown, 05/28/19) dexamethasone (Verified Allergy, Unknown, 08/30/19) erythromycin base (Verified Allergy, Unknown, 08/30/19) levofloxacin (Verified Allergy, Unknown, 08/30/19) methylprednisolone (Verified Allergy, Unknown, 08/30/19) tetracycline (Verified Allergy, Unknown, 05/28/19) Patient Home Medication List Home Medication List Reviewed: Yes Albuterol Sulfate (Proair Hfa) 1 Puff Puff, 2 PUFF IH Q4H Prescribed by: FREDRICK MOORE on 02/06/19 0303 Azithromycin (Zithromax) 250 Mg Tablet, 250 MG PO UD Prescribed by: FREDRICK LEOS on 08/30/19 1434 Clonazepam (Clonazepam) 0.5 Mg Tablet, (Reported) Entered as Reported by: RAMONA GARCIA on 04/22/17 1320 Dicyclomine HCl (Dicyclomine HCl) 20 Mg Tablet, 20 MG PO QID Prescribed by: BRAYAN GOVEA on 03/13/20 1906 Doxycycline Hyclate (Doxycycline Hyclate) 100 Mg Tablet, 100 MG PO BID Prescribed by: FREDRICK MOORE on 02/06/19 0306 Gabapentin (Gabapentin) 300 Mg Capsule, (Reported) Entered as Reported by: RAMONA GARCIA on 04/22/17 1320 Hydrocodone Bit/Acetaminophen (HYDROcodone/APAP 10/325 TABLET) 1 Each Tablet, (Reported) Entered as Reported by: RAMONA GARCIA on 04/22/17 132 Orphenadrine Citrate (Orphenadrine Citrate) 100 Mg Tablet.er, 100 MG PO BID Prescribed by: MACARENA CLARKE on 05/28/19 220 Prednisone (Prednisone) 10 Mg Tab.ds.pk, 10 MG PO DAILY Prescribed by: FREDRICK MOORE on 02/06/19 030 Prednisone (Prednisone) 20 Mg Tab, 60 MG PO DAILY Prescribed by: FREDRICK LEOS on 08/30/19 1434 Quetiapine Fumarate (Quetiapine Fumarate) 200 Mg Tablet, (Reported) Entered as Reported by: RAMONA GARCIA on 04/22/17 132 Sertraline HCl (Sertraline HCl) 100 Mg Tablet, (Reported) Entered as Reported by: RAMONA GARCIA on 04/22/17 132 Sulfamethoxazole/Trimethoprim (Bactrim Ds Tablet) 1 Each Tablet, 1 EACH PO BID Prescribed by: MACARENA CLARKE on 08/10/19 1929 [Flexeril] , 10 twice a day Prescribed by: BRISEIDA WILL on 04/22/17 1511 Review of Systems Review of Systems Constitutional: No chills, No fever EENTM: No Blurred Vision Respiratory: Denies Cough, Denies Shortness of Air Cardiovascular: Denies Chest Pain Gastrointestinal: Abdominal Pain; Denies Diarrhea; Nausea; Denies Vomiting Genitourinary: Denies Burning Musculoskeletal: no symptoms reported Skin: no symptoms reported Psychiatric/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: No Symptoms Reported Endocrine: No Symptoms Reported Hematologic/Lymphatic: No Symptoms Reported All Other Systems Reviewed Negative Unless Noted: Yes Past Fvyasxy-Wihziv-Jossqd Hx Patient Social History Tobacco Use?: Yes Seasonal Allergies Seasonal Allergies: No Past Medical History Surgeries: Yes (BACK SX) Appendectomy, Brain Shunt, Hysterectomy, Orthopedic Respiratory: No (Tobaccoism) COPD Cardiac: Yes Heart Attack, Hypertension 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, has brain shunt) [employer]OU[employer] History: Hysterectomy Genitourinary: No Gastrointestinal: Yes (Hep C history ") Gastroesophageal Reflux, Diverticulosis, Hepatitis Musculoskeletal: Yes (Chronic pain- Buprenorphine) Arthritis, Chronic Back Pain Endocrine: No HEENT: No Cancer: No Psychosocial: Yes Anxiety, Bipolar, Depression Integumentary: No Blood Disorders: No Adverse Reaction/Blood Tranf: No Physical Exam Vital Signs Vital Signs - First Documented 05/27/21 07:45 Temp 36.0 Pulse 60 Resp 17 B/P (MAP) 152/69 (96) O2 Delivery Room Air Capillary Refill : Height/Weight/BMI Height: 5'4.00" Weight: 170lbs. oz. 77.907422tn; 33.00 BMI Method:Stated General Appearance: WD/WN, no apparent distress HEENT: PERRL/EOMI, normal ENT inspection, pharynx normal Neck: non-tender, full range of motion, supple, normal inspection Respiratory: chest non-tender, lungs clear, normal breath sounds, no respiratory distress, no accessory muscle use Cardiovascular: regular rate, rhythm, no edema, no murmur Gastrointestinal: normal bowel sounds, soft; No distended, No guarding, No rebound; tenderness (lower abd tenderness) Extremities: normal range of motion, non-tender, normal inspection, no pedal edema, no calf tenderness, normal capillary refill Back: normal inspection, no CVA tenderness, no vertebral tenderness Neurologic/Psychiatric: no motor/sensory deficits, alert, normal mood/affect Skin: normal color, warm/dry Lymphatic: no adenopathy Focused Exam Lactate Level 05/27/21 08:15: Lactic Acid Level 0.64 Lactic Acid Level Laboratory Tests Test 05/27/21 08:15 Lactic Acid Level 0.64 MMOL/L (0.50-2.00) Progress/Results/Core Measures Results/Orders Lab Results Laboratory Tests Test 05/27/21 07:53 05/27/21 08:15 05/27/21 09:02 Range/Units White Blood Count 13.5 H 4.3-11.0 10^3/uL Red Blood Count 4.74 3.80-5.11 10^6/uL Hemoglobin 13.8 11.5-16.0 g/dL Hematocrit 41 35-52 % Mean Corpuscular Volume 87 80-99 fL Mean Corpuscular Hemoglobin 29 25-34 pg Mean Corpuscular Hemoglobin Concent 33 32-36 g/dL Red Cell Distribution Width 13.9 10.0-14.5 % Platelet Count 430 H 130-400 10^3/uL Mean Platelet Volume 10.3 9.0-12.2 fL Immature Granulocyte % (Auto) 0 % Neutrophils (%) (Auto) 84 H 42-75 % Lymphocytes (%) (Auto) 12 12-44 % Monocytes (%) (Auto) 3 0-12 % Eosinophils (%) (Auto) 0 0-10 % Basophils (%) (Auto) 1 0-10 % Neutrophils # (Auto) 11.3 H 1.8-7.8 X 10^3 Lymphocytes # (Auto) 1.6 1.0-4.0 X 10^3 Monocytes # (Auto) 0.4 0.0-1.0 X 10^3 Eosinophils # (Auto) 0.1 0.0-0.3 10^3/uL Basophils # (Auto) 0.1 0.0-0.1 10^3/uL Immature Granulocyte # (Auto) 0.0 0.0-0.1 10^3/uL Sodium Level 138 135-145 MMOL/L Potassium Level 4.1 3.6-5.0 MMOL/L Chloride Level 104 98-107 MMOL/L Carbon Dioxide Level 23 21-32 MMOL/L Anion Gap 11 5-14 MMOL/L Blood Urea Nitrogen 12 7-18 MG/DL Creatinine 0.56 L 0.60-1.30 MG/DL Estimat Glomerular Filtration Rate 110 BUN/Creatinine Ratio 21 Glucose Level 137 H 70-105 MG/DL Calcium Level 10.2 H 8.5-10.1 MG/DL Corrected Calcium 10.3 H 8.5-10.1 MG/DL Total Bilirubin 0.2 0.1-1.0 MG/DL Aspartate Amino Transf (AST/SGOT) 15 5-34 U/L Alanine Aminotransferase (ALT/SGPT) 11 0-55 U/L Alkaline Phosphatase 76 40-136 U/L Troponin I < 0.30 <0.30 NG/ML Total Protein 6.6 6.4-8.2 GM/DL Albumin 3.9 3.2-4.5 GM/DL Lipase 28 8-78 U/L Lactic Acid Level 0.64 0.50-2.00 MMOL/L Urine Color YELLOW Urine Clarity CLOUDY Urine pH 7.0 5-9 Urine Specific Labelle <=1.005 1.016-1.022 Urine Protein NEGATIVE NEGATIVE Urine Glucose (UA) NEGATIVE NEGATIVE Urine Ketones NEGATIVE NEGATIVE Urine Nitrite NEGATIVE NEGATIVE Urine Bilirubin NEGATIVE NEGATIVE Urine Urobilinogen 0.2 < = 1.0 MG/DL Urine Leukocyte Esterase NEGATIVE NEGATIVE Urine RBC (Auto) NEGATIVE NEGATIVE Urine RBC NONE /HPF Urine WBC RARE /HPF Urine Squamous Epithelial Cells 0-2 /HPF Urine Crystals PRESENT H /LPF Urine Amorphous Sediment MOD DAVE URATES H /LPF Urine Bacteria NEGATIVE /HPF Urine Casts NONE /LPF Urine Mucus SMALL H /LPF Urine Culture Indicated NO My Orders Orders - BETY RICE MD Comprehensive Metabolic Panel (05/27/21 07:59) Lipase (05/27/21 07:59) Ua Culture If Indicated (05/27/21 07:59) Ed Iv/Invasive Line Start (05/27/21 07:59) Cbc With Automated Diff (05/27/21 07:59) Ct Abdomen/Pelvis W (05/27/21 07:59) Lactic Acid Analyzer (05/27/21 07:59) Troponin I Fs (05/27/21 07:59) Ondansetron Injection (Zofran Injectio (05/27/21 08:30) Iohexol Injection (Omnipaque 350 Mg/Ml 1 (05/27/21 08:30) Received Contrast (Hold Metformin- Contr (05/27/21 08:30) Sodium Chloride Flush (Catheter Flush Sy (05/27/21 08:30) Ns (Ivpb) (Sodium Chloride 0.9% Ivpb Bag (05/27/21 08:30) Hyoscyamine Sl Tablet (Levsin Sl Tablet) (05/27/21 09:15) Ketorolac Injection (Toradol Injection) (05/27/21 09:15) Medications Given in ED Current Medications Medications Dose Ordered Sig/Sandra Route Start Time Stop Time Status Last Admin Dose Admin Hyoscyamine Sulfate 0.125 mg ONCE ONCE PO 05/27/21 09:15 05/27/21 09:16 DC 05/27/21 09:24 0.125 MG Iohexol 100 ml ONCE ONCE IV 05/27/21 08:30 05/27/21 08:31 DC 05/27/21 08:44 100 ML Ketorolac Tromethamine 15 mg ONCE ONCE IVP 05/27/21 09:15 05/27/21 09:16 DC 05/27/21 09:24 15 MG Ondansetron HCl 4 mg ONCE ONCE IVP 05/27/21 08:30 05/27/21 08:31 DC 05/27/21 08:46 4 MG Sodium Chloride 10 ml NEEDED PRN IV 05/27/21 08:30 05/27/21 08:44 10 ML Sodium Chloride 100 ml ONCE ONCE IV 05/27/21 08:30 05/27/21 08:31 DC 05/27/21 08:44 100 ML Vital Signs/I&O 05/27/21 07:45 Temp 36.0 Pulse 60 Resp 17 B/P (MAP) 152/69 (96) O2 Delivery Room Air Progress Progress Note : Progress Note 61-year-old female with above history coming in due to lower abdominal pain. ABCs were intact and vitals were stable on presentation. Physical exam with lower abdominal tenderness without any signs of peritonitis. Differential inclu lakshmi diverticulitis versus stump appendicitis versus cystitis versus less likely mesenteric ischemia versus less likely bowel obstruction versus some other etiology. An IV was placed and basic labs were obtained including LFTs. Given the remote history of chest pain in the past few days also added a troponin, but she is denying chest pain at this time. Ordered a lactic acid to further stratify her and rule out mesenteric ischemia. CT abdomen pelvis ordered to further evaluate for the cause of her pain. EMS did give her 50 mcg of fentanyl just prior to arrival and she appears comfortable. Labs significant for a slightly elevated white blood count which is nonspecific, normal creatinine, normal electrolytes, normal LFTs, normal lactic, negative troponin, and UA without evidence of infection. CT abdomen pelvis negative for any acute abnormalities. On reassessment with repeat abdominal exam she continued to not have any signs of peritonitis. Then given Toradol IV and Levsin for pain. It is possible this is pain and increasing bowel movements from her stopping the buprenorphine so abruptly. I believe she is stable for discharge. She was sent home with strict return precautions. Diagnostic Imaging Diagonstic Imaging: CT Plain Films/CT/US/NM/MRI: abdomen, pelvis Comments [facility] [place], [place] NAME: RONEL UMAÑA [facility] REC#: [id number] PT STATUS: REG ER : 1960 PHYSICIAN: BETY RICE MD ADMIT DATE: 05/27/21/ER FS Draft Date of Exam:05/27/21 CT ABDOMEN/PELVIS W EXAMINATION: CT abdomen and pelvis with intravenous contrast. TECHNIQUE: Multiple contiguous axial images were obtained through the abdomen and pelvis after the uneventful administration of intravenous contrast. All CT scans use one or more of the following dose optimizing techniques: automated exposure control, MA and/or KvP adjustment based on patient size and exam type or iterative reconstruction. HISTORY: Lower abd pain, r/o diverticulitis. COMPARISON: 03/13/2020. FINDINGS: Lung bases: The lung bases are clear. Solid organs: The liver is normal without focal lesion. The gallbladder is normal. There is no biliary ductal dilation. There is a 2.0 cm cystic lesion of the pancreatic tail, unchanged. Spleen is normal. Stable diffuse adrenal thickening. Redemonstrated right adrenal gland more focal nodule measuring 2.3 cm with Hounsfield units of 7 suggesting an adrenal adenoma. There is a left renal cyst which requires no followup. No hydronephrosis. Bowel: The stomach and small bowel are normal without obstruction. There is scattered colonic diverticulosis. No findings of acute appendicitis. Peritoneum: There is no intraperitoneal free fluid or free air. No suspicious lymphadenopathy. Vasculature: Calcification of the aorta without aneurysm. Musculoskeletal: Stable surgical and degenerative changes of the spine. No suspicious osseous lesion or acute compression fracture. Pelvis: The uterus is surgically absent. No adnexal mass. The urinary bladder is normal. IMPRESSION: 1. No acute abnormality in the abdomen or pelvis. 2. Stable pancreatic cystic lesion. 3. Stable adrenal thickening and right adrenal nodule, suggestive of an adenoma. Dictated on workstation # [id number] Dict: 05/27/21 0854 Trans: 05/27/21 09 [id number] Interpreted by: CONNIE HERNANDEZ DO Electronically signed by: Departure Impression Primary Impression: Lower abdominal pain Disposition: 01 HOME, SELF-CARE Condition: Stable Departure-Patient Inst. Decision time for Depature: 09:40 Referrals: TARUN LACY DO (PCP/Family) Primary Care Physician Patient Instructions: Severe Abdominal Pain Add. Discharge Instructions: You were seen in the emergency department for lower abdominal pain. Your labs are reassuring and it does not appear like you are having a flare of diverticulitis based on your CT scan today. Your urine did not look infected. Please take 600 mg of ibuprofen every 6 hours as needed for pain, and you can also take 1000 mg of Tylenol every 8 hours for pain. Please follow-up with your primary care doctor within the next couple days if you continue to have pain. BETY RICE MD May 27, 2021 08:05
[2021-05-27 08:26] LABS: BASOPHILS # (AUTO) 0.1 10^3/uL (0.0-0.1); BASOPHILS % (AUTO) 1 % (0-10); EOSINOPHILS # (AUTO) 0.1 10^3/uL (0.0-0.3); EOSINOPHILS % (AUTO) 0 % (0-10); HEMATOCRIT 41 % (35-52); HEMOGLOBIN 13.8 g/dL (11.5-16.0); LYMPHOCYTES # (AUTO) 1.6 X 10^3 (1.0-4.0); LYMPHOCYTES % (AUTO) 12 % (12-44); MEAN CORPUSCULAR HEMOGLOBIN 29 pg (25-34); MEAN CORPUSCULAR HGB CONC 33 g/dL (32-36); MEAN CORPUSCULAR VOLUME 87 fL (80-99); MEAN PLATELET VOLUME 10.3 fL (9.0-12.2); MONOCYTES # (AUTO) 0.4 X 10^3 (0.0-1.0); MONOCYTES % (AUTO) 3 % (0-12); NEUTROPHILS # (AUTO) 11.3 X 10^3 (1.8-7.8); NEUTROPHILS % (AUTO) 84 % (42-75); PLATELET COUNT 430 10^3/uL (130-400); WHITE BLOOD COUNT 13.5 10^3/uL (4.3-11.0)
[2021-05-27 08:29] LABS: ALBUMIN 3.9 GM/DL (3.2-4.5); BILIRUBIN,TOTAL 0.2 MG/DL (0.1-1.0); CALCIUM 10.2 MG/DL (8.5-10.1); CREATININE SERUM 0.56 MG/DL (0.60-1.30); POTASSIUM 4.1 MMOL/L (3.6-5.0); TOTAL PROTEIN 6.6 GM/DL (6.4-8.2)
[2021-05-27] MEDS ORDERED: NS 100 ML (IVPB) BAG IV ONE (08:30)
[2021-05-27] MEDS ORDERED: CATHETER FLUSH 10 ML SYR IV PRN (08:30)
[2021-05-27] MEDS ORDERED: IOHEXOL 350 MG/ML 100 ML (OMNIPAQUE 350) VIAL IV ONE (08:30)
[2021-05-27] MEDS ORDERED: HOLD METFORMIN - RECEIVED CONTRAST 20 ML VIAL IV SCH (08:30)
[2021-05-27] MEDS ORDERED: ONDANSETRON 4 MG/2 ML (SDV) Z0FRAN IVP ONE (08:30)
--- NOTE | 2021-05-27 09:01 | Diagnostic Imaging Report ---
EXAMINATION: CT abdomen and pelvis with intravenous contrast. TECHNIQUE: Multiple contiguous axial images were obtained through the abdomen and pelvis after the uneventful administration of intravenous contrast. All CT scans use one or more of the following dose optimizing techniques: automated exposure control, MA and/or KvP adjustment based on patient size and exam type or iterative reconstruction. HISTORY: Lower abd pain, r/o diverticulitis. COMPARISON: 03/13/2020. FINDINGS: Lung bases: The lung bases are clear. Solid organs: The liver is normal without focal lesion. The gallbladder is normal. There is no biliary ductal dilation. There is a 2.0 cm cystic lesion of the pancreatic tail, unchanged. Spleen is normal. Stable diffuse adrenal thickening. Redemonstrated right adrenal gland more focal nodule measuring 2.3 cm with Hounsfield units of 7 suggesting an adrenal adenoma. There is a left renal cyst which requires no followup. No hydronephrosis. Bowel: The stomach and small bowel are normal without obstruction. There is scattered colonic diverticulosis. No findings of acute appendicitis. Peritoneum: There is no intraperitoneal free fluid or free air. No suspicious lymphadenopathy. Vasculature: Calcification of the aorta without aneurysm. Musculoskeletal: Stable surgical and degenerative changes of the spine. No suspicious osseous lesion or acute compression fracture. Pelvis: The uterus is surgically absent. No adnexal mass. The urinary bladder is normal. IMPRESSION: 1. No acute abnormality in the abdomen or pelvis. 2. Stable pancreatic cystic lesion. 3. Stable adrenal thickening and right adrenal nodule, suggestive of an adenoma. Dictated by: Dictated on workstation # [id number]
[2021-05-27] MEDS ORDERED: KETOROLAC 30 MG/ML VIAL IVP ONE (09:15)
[2021-05-27] MEDS ORDERED: HYOSCYAMINE 0.125 MG (LEVSIN) TAB PO ONE (09:15)
[2021-05-27 09:21] LABS: BILIRUBIN,URINE NEGATIVE (NEGATIVE); CLARITY,URINE CLOUDY; COLOR,URINE YELLOW; GLUCOSE, URINE (UA) NEGATIVE (NEGATIVE); KETONES,URINE NEGATIVE (NEGATIVE); LEUKOCYTE ESTERASE ,URINE NEGATIVE (NEGATIVE); NITRITE,URINE NEGATIVE (NEGATIVE); PROTEIN,URINE NEGATIVE (NEGATIVE)
[2021-05-27 09:37] LABS: AMORPHOUS SEDIMENT,UR MOD AMOR URATES /LPF; BACTERIA,URINE NEGATIVE /HPF; SQUAMOUS EPITHELIAL CELL,UR 0-2 /HPF; WBC,URINE RARE /HPF
[2021-05-27 09:48] VITALS: BP 144/80
== END 2021-05-27 09:48 | disposition home or self-care (01) ==
LOC: EDUNIT# 07:45 → ER FS 07:46
DX: R10.30 Lower abdominal pain, unspecified (principal); J44.9 Chronic obstructive pulmonary disease, unspecified; I25.2 Old myocardial infarction; I10 Essential (primary) hypertension; F41.9 Anxiety disorder, unspecified; F31.9 Bipolar disorder, unspecified; G89.29 Other chronic pain; M54.9 Dorsalgia, unspecified; Z72.0 Tobacco use; Z79.899 Other long term (current) drug therapy; Z79.891 Long term (current) use of opiate analgesic
CPT/HCPCS: 36415; 74177; 80053; 81000; 83605; 83690; 84484; 85025

== ENCOUNTER 2021-06-09 13:57 | Emergency (ER) | payer MEDICARE, MEDICAID ==
[~2021-06-09] VITALS: Ht 162.6 cm; Wt 77.1 kg
[~2021-06-09 13:57] MED LIST changes: +DICY20TA PO; -DICY20TA10 PO
[2021-06-09] MEDS ORDERED: NS IV 1000 ML 1,000 ML IV STA (14:11)
[2021-06-09] MEDS ORDERED: KETOROLAC 30 MG/ML VIAL IVP STA (14:11)
[2021-06-09 14:37] LABS: BASOPHILS # (AUTO) 0.1 10^3/uL (0.0-0.1); BASOPHILS % (AUTO) 1 % (0-10); EOSINOPHILS # (AUTO) 0.2 10^3/uL (0.0-0.3); EOSINOPHILS % (AUTO) 1 % (0-10); HEMATOCRIT 41 % (35-52); LYMPHOCYTES # (AUTO) 3.6 X 10^3 (1.0-4.0); LYMPHOCYTES % (AUTO) 30 % (12-44); MEAN CORPUSCULAR HEMOGLOBIN 30 pg (25-34); MEAN CORPUSCULAR HGB CONC 34 g/dL (32-36); MEAN CORPUSCULAR VOLUME 87 fL (80-99); MEAN PLATELET VOLUME 10.3 fL (9.0-12.2); MONOCYTES # (AUTO) 0.8 X 10^3 (0.0-1.0); MONOCYTES % (AUTO) 6 % (0-12); NEUTROPHILS # (AUTO) 7.5 X 10^3 (1.8-7.8); NEUTROPHILS % (AUTO) 61 % (42-75); PLATELET COUNT 414 10^3/uL (130-400); WHITE BLOOD COUNT 12.2 10^3/uL (4.3-11.0)
[2021-06-09 14:43] VITALS: BP_SYST 107; BP_SYST 125; BP_SYST 127; BP_DIAS 73; BP_DIAS 75; BP_DIAS 76
[2021-06-09] MEDS ORDERED: IOHEXOL 350 MG/ML 100 ML (OMNIPAQUE 350) VIAL IV ONE (14:45)
[2021-06-09] MEDS ORDERED: NS 100 ML (IVPB) BAG IV ONE (14:45)
[2021-06-09] MEDS ORDERED: HOLD METFORMIN - RECEIVED CONTRAST 20 ML VIAL IV SCH (14:45)
[2021-06-09] MEDS ORDERED: CATHETER FLUSH 10 ML SYR IV PRN (14:45)
[2021-06-09 14:46] LABS: BUN/CREATININE RATIO 20; CALCIUM 10.5 MG/DL (8.5-10.1); CARBON DIOXIDE 25 MMOL/L (21-32); CHLORIDE 102 MMOL/L (98-107); CREATININE SERUM 0.79 MG/DL (0.60-1.30); GFR ESTIMATED 74; GLUCOSE 114 MG/DL (70-105); POTASSIUM 3.7 MMOL/L (3.6-5.0); SODIUM 138 MMOL/L (135-145)
[2021-06-09 14:47] LABS: ALANINE AMINOTRANSFERASE 8 U/L (0-55); ALBUMIN 4.2 GM/DL (3.2-4.5); ALKALINE PHOSPHATASE 65 U/L (40-136); BILIRUBIN,TOTAL 0.3 MG/DL (0.1-1.0); LIPASE 26 U/L (8-78); TOTAL PROTEIN 6.8 GM/DL (6.4-8.2)
--- NOTE | 2021-06-09 14:55 | ED General ---
General Chief Complaint: Abdominal/GI Problems Stated Complaint: CONSTIPATION Source of Information: Patient, EMS, Old Records History of Present Illness Date Seen by Provider: Jun 09, 2021 Time Seen by Provider: 13:57 Initial Comments 61-year-old female presenting with multiple chronic complaints. She has no acute complaints to be seen in the emergency department. She reports that she has been "sick" for weeks and been seen in the emergency department here in [facility] [place], and been in the clinic multiple times. She states that she is sure that she has an infection and she needs an antibiotic. She is upset because no one will give her an antibiotic and no one has given her an answer for why she does not feel well. She reports having "gone to the streets" to obtain Bactrim and a sulfa antibiotic to self treat her possible infection that she is sure is somewhere in her body. She has multiple chronic complaints including sore throat, pain to the right side of her neck when she swallows, lower abdominal pain, intermittent constipation, intermittent dark-colored urine, generalized fatigue, her heart pounding at times, feeling like her blood pressure is going up when she stands up because she gets a headache. She reports subjective fever and chills. She denies any pain with urination. She perseverates on the fact that her blood work that she has a copy of from May 23 showed a white blood cell count of 14.1 thousand. Patient reports that she feels she needs to be admitted to the hospital because "someone needs to watch my heart and see that it is pounding at night". She also feels that the admission is warranted because she has not felt well and no one has been able to tell her why. She thinks that there is an infection somewhere and if she is admitted she believes that they will find the infection and be able to treat it and tell her where it is at. Timing/Duration: Other (chronic issues for weeks to months) Severity: Moderate Associated Systoms: No Chest Pain, No Cough, No Diaphoresis; Fever/Chills (subjective), Headaches (when she stands up); No Loss of Appetite; Malaise; No Nausea/Vomiting, No Rash, No Seizure, No Shortness of Air, No Syncope; Weakness Allergies and Home Medications Allergies Coded Allergies: Penicillins (Verified Allergy, Unknown, 05/28/19) azithromycin (Verified Allergy, Unknown, 05/28/19) cefaclor (Verified Allergy, Unknown, 08/30/19) cephalexin (Verified Allergy, Unknown, 05/28/19) dexamethasone (Verified Allergy, Unknown, 08/30/19) erythromycin base (Verified Allergy, Unknown, 08/30/19) levofloxacin (Verified Allergy, Unknown, 08/30/19) methylprednisolone (Verified Allergy, Unknown, 08/30/19) tetracycline (Verified Allergy, Unknown, 05/28/19) Patient Home Medication List Home Medication List Reviewed: Yes Albuterol Sulfate (Proair Hfa) 1 Puff Puff, 2 PUFF IH Q4H Prescribed by: FREDRICK MOORE on 02/06/19 0303 Azithromycin (Zithromax) 250 Mg Tablet, 250 MG PO UD Prescribed by: FREDRICK LEOS on 08/30/19 1434 Clonazepam (Clonazepam) 0.5 Mg Tablet, (Reported) Entered as Reported by: RAMONA GARCIA on 04/22/17 1320 Dicyclomine HCl (Dicyclomine HCl) 20 Mg Tablet, 20 MG PO QID Prescribed by: BRAYAN GOVEA on 03/13/20 1906 Doxycycline Hyclate (Doxycycline Hyclate) 100 Mg Tablet, 100 MG PO BID Prescribed by: FREDRICK MOORE on 02/06/19 0306 Gabapentin (Gabapentin) 300 Mg Capsule, (Reported) Entered as Reported by: RAMONA GARCIA on 04/22/17 1320 Hydrocodone Bit/Acetaminophen (HYDROcodone/APAP 10/325 TABLET) 1 Each Tablet, (Reported) Entered as Reported by: RAMONA GARCIA on 04/22/17 1320 Orphenadrine Citrate (Orphenadrine Citrate) 100 Mg Tablet.er, 100 MG PO BID Prescribed by: MACARENA CLARKE on 05/28/19 220 Prednisone (Prednisone) 10 Mg Tab.ds.pk, 10 MG PO DAILY Prescribed by: FREDRICK MOORE on 02/06/19 030 Prednisone (Prednisone) 20 Mg Tab, 60 MG PO DAILY Prescribed by: FREDRICK LEOS on 08/30/19 1434 Quetiapine Fumarate (Quetiapine Fumarate) 200 Mg Tablet, (Reported) Entered as Reported by: RAMONA GARCIA on 04/22/17 1320 Sertraline HCl (Sertraline HCl) 100 Mg Tablet, (Reported) Entered as Reported by: RAMONA GARCIA on 04/22/17 1320 Sulfamethoxazole/Trimethoprim (Bactrim Ds Tablet) 1 Each Tablet, 1 EACH PO BID Prescribed by: MACARENA CLARKE on 08/10/19 1929 Sulfamethoxazole/Trimethoprim (Sulfamethoxazole-Tmp Ss Tablet) 1 Each Tablet, 1 EACH PO BID Prescribed by: MACARENA CLARKE on 06/09/21 1620 [Flexeril] , 10 twice a day Prescribed by: BRISEIDA WILL on 04/22/17 1511 Review of Systems Review of Systems Constitutional: see HPI EENTM: see HPI Respiratory: no symptoms reported Cardiovascular: see HPI, palpitations (intermittent episodes of feeling like her heart is pounding) Gastrointestinal: see HPI, constipation Genitourinary: No decreased output, No discharge, No dysuria Musculoskeletal: no symptoms reported Skin: No rash Psychiatric/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: See HPI, Anxiety Past Tthdlkm-Kmiptt-Ztfbzh Hx Seasonal Allergies Seasonal Allergies: No Past Medical History Surgeries: Yes (BACK SX) Appendectomy, Brain Shunt, Hysterectomy, Orthopedic Respiratory: No (Tobaccoism) COPD Cardiac: Yes Heart Attack, Hypertension 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, has brain shunt) [employer] History: Hysterectomy Genitourinary: No Gastrointestinal: Yes (Hep C history ") Gastroesophageal Reflux, Diverticulosis, Hepatitis Musculoskeletal: Yes (Chronic pain- Buprenorphine) Arthritis, Chronic Back Pain Endocrine: No HEENT: No Cancer: No Psychosocial: Yes Anxiety, Bipolar, Depression Integumentary: No Blood Disorders: No Adverse Reaction/Blood Tranf: No Physical Exam Vital Signs Vital Signs - First Documented 06/09/21 14:00 Temp 36.7 Pulse 63 Resp 17 B/P (MAP) 128/70 (89) Pulse Ox 99 O2 Delivery Room Air Capillary Refill : Height, Weight, BMI Height: 5'4.00" Weight: 170lbs. oz. 77.610125iz; 28.00 BMI Method:Stated General Appearance: Anxious, Chronically ill HEENT: PERRL/EOMI, Pharynx Normal Neck: Full Range of Motion, Normal Inspection, Supple; No Lymphadenopathy (L), No Lymphadenopathy (R); Other (complaint of pain to right side of anterior neck when she swallows) Respiratory: Chest Non Tender, Lungs Clear, Normal Breath Sounds, No Accessory Muscle Use, No Respiratory Distress Cardiovascular: Regular Rate, Rhythm, Normal Peripheral Pulses Gastrointestinal: Normal Bowel Sounds, No Pulsatile Mass, Soft; No Distended, No Guarding, No Rebound; Tenderness (low abdomen bilaterally) Rectal: Deferred Back: No CVA Tenderness Extremity: Normal Capillary Refill, Normal Inspection, No Pedal Edema Neurologic/Psychiatric: Alert, Oriented x3, chief of production II-XII Norm as Tested, Other (anxious) Skin: Normal Color, Warm/Dry Focused Exam Lactate Level 06/09/21 14:23: Lactic Acid Level 0.78 Lactic Acid Level Laboratory Tests Test 06/09/21 14:23 Lactic Acid Level 0.78 MMOL/L (0.50-2.00) Progress/Results/Core Measures Suspected Sepsis SIRS Temperature: Pulse: 52 Respiratory Rate: Laboratory Tests 06/09/21 14:23: White Blood Count 12.2H Blood Pressure 107 /73 Mean: 84 06/09/21 14:23: Lactic Acid Level 0.78 Laboratory Tests 06/09/21 14:23: Creatinine 0.79, Platelet Count 414H, Total Bilirubin 0.3 Results/Orders Lab Results Laboratory Tests Test 06/09/21 14:23 06/09/21 15:20 Range/Units White Blood Count 12.2 H 4.3-11.0 10^3/uL Red Blood Count 4.71 3.80-5.11 10^6/uL Hemoglobin 14.0 11.5-16.0 g/dL Hematocrit 41 35-52 % Mean Corpuscular Volume 87 80-99 fL Mean Corpuscular Hemoglobin 30 25-34 pg Mean Corpuscular Hemoglobin Concent 34 32-36 g/dL Red Cell Distribution Width 14.0 10.0-14.5 % Platelet Count 414 H 130-400 10^3/uL Mean Platelet Volume 10.3 9.0-12.2 fL Immature Granulocyte % (Auto) 0 % Neutrophils (%) (Auto) 61 42-75 % Lymphocytes (%) (Auto) 30 12-44 % Monocytes (%) (Auto) 6 0-12 % Eosinophils (%) (Auto) 1 0-10 % Basophils (%) (Auto) 1 0-10 % Neutrophils # (Auto) 7.5 1.8-7.8 X 10^3 Lymphocytes # (Auto) 3.6 1.0-4.0 X 10^3 Monocytes # (Auto) 0.8 0.0-1.0 X 10^3 Eosinophils # (Auto) 0.2 0.0-0.3 10^3/uL Basophils # (Auto) 0.1 0.0-0.1 10^3/uL Immature Granulocyte # (Auto) 0.0 0.0-0.1 10^3/uL Sodium Level 138 135-145 MMOL/L Potassium Level 3.7 3.6-5.0 MMOL/L Chloride Level 102 98-107 MMOL/L Carbon Dioxide Level 25 21-32 MMOL/L Anion Gap 11 5-14 MMOL/L Blood Urea Nitrogen 16 7-18 MG/DL Creatinine 0.79 0.60-1.30 MG/DL Estimat Glomerular Filtration Rate 74 BUN/Creatinine Ratio 20 Glucose Level 114 H 70-105 MG/DL Lactic Acid Level 0.78 0.50-2.00 MMOL/L Calcium Level 10.5 H 8.5-10.1 MG/DL Corrected Calcium 10.3 H 8.5-10.1 MG/DL Total Bilirubin 0.3 0.1-1.0 MG/DL Aspartate Amino Transf (AST/SGOT) 12 5-34 U/L Alanine Aminotransferase (ALT/SGPT) 8 0-55 U/L Alkaline Phosphatase 65 40-136 U/L Troponin I < 0.30 <0.30 NG/ML C-Reactive Protein < 0.30 <0.50 MG/DL Pro-B-Type Natriuretic Peptide 48.6 <75.0 PG/ML Total Protein 6.8 6.4-8.2 GM/DL Albumin 4.2 3.2-4.5 GM/DL Lipase 26 8-78 U/L Urine Color YELLOW Urine Clarity CLEAR Urine pH 6.5 5-9 Urine Specific Clover 1.010 L 1.016-1.022 Urine Protein NEGATIVE NEGATIVE Urine Glucose (UA) NEGATIVE NEGATIVE Urine Ketones NEGATIVE NEGATIVE Urine Nitrite NEGATIVE NEGATIVE Urine Bilirubin NEGATIVE NEGATIVE Urine Urobilinogen 0.2 < = 1.0 MG/DL Urine Leukocyte Esterase NEGATIVE NEGATIVE Urine RBC (Auto) NEGATIVE NEGATIVE Urine RBC NONE /HPF Urine WBC 0-2 /HPF Urine Squamous Epithelial Cells 2-5 /HPF Urine Crystals NONE /LPF Urine Bacteria LARGE H /HPF Urine Casts NONE /LPF Urine Mucus MODERATE H /LPF Urine Culture Indicated YES My Orders Orders - MACARENA CLARKE MD Comprehensive Metabolic Panel (06/09/21 14:08) Lipase (06/09/21 14:08) Ua Culture If Indicated (06/09/21 14:08) Ed Iv/Invasive Line Start (06/09/21 14:08) Cbc With Automated Diff (06/09/21 14:08) Blood Culture (06/09/21 14:08) Crp Fs (06/09/21 14:08) Troponin I Fs (06/09/21 14:08) Probnp Fs (06/09/21 14:08) Orthostatic Vital Signs (Adult (06/09/21 14:08) Lactic Acid Analyzer (06/09/21 14:08) Ct Abdomen/Pelvis W (06/09/21 14:11) Ns Iv 1000 Ml (Sodium Chloride 0.9%) (06/09/21 14:11) Ketorolac Injection (Toradol Injection) (06/09/21 14:11) Iohexol Injection (Omnipaque 350 Mg/Ml 1 (06/09/21 14:45) Received Contrast (Hold Metformin- Contr (06/09/21 14:45) Sodium Chloride Flush (Catheter Flush Sy (06/09/21 14:45) Ns (Ivpb) (Sodium Chloride 0.9% Ivpb Bag (06/09/21 14:45) Urine Culture (06/09/21 15:20) Sulfamethoxazole/Trimet Ds Tab (Bactrim (06/09/21 16:14) Medications Given in ED Current Medications Medications Dose Ordered Sig/Sandra Route Start Time Stop Time Status Last Admin Dose Admin Iohexol 100 ml ONCE ONCE IV 06/09/21 14:45 06/09/21 14:46 DC 06/09/21 15:05 100 ML Sodium Chloride 10 ml NEEDED PRN IV 06/09/21 14:45 06/09/21 16:27 DC 06/09/21 15:05 10 ML Sodium Chloride 100 ml ONCE ONCE IV 06/09/21 14:45 06/09/21 14:46 DC 06/09/21 15:05 100 ML Vital Signs/I&O 06/09/21 06/09/21 06/09/21 14:00 14:43 16:21 Temp 36.7 Pulse 63 54 71 46 52 Resp 17 18 B/P (MAP) 128/70 (89) 127/75 (92) 135/89 125/76 (92) 107/73 (84) Pulse Ox 99 98 O2 Delivery Room Air Room Air Capillary Refill : Blood Pressure Mean: 84 Progress Note #1: Progress Note Patient has stable vital signs here on arrival. Ordered basic labs including blood cultures and lactic acid. Will repeat a CT scan of her abdomen and pelvis to see if there is been any change from 2 weeks ago when she was evaluated. Patient is adamant that there is something wrong with her abdomen and her health overall. Give IV fluids for hydration. Toradol for abdominal pain. Progress Note #2: Progress Note Labs show mild elevation of her white blood cell count to 12.2. Her differential was normal. Her chemistry panel did not show any acute significant abnormalities. Her CRP was negative in addition to her heart enzymes. Her lactic acid was normal as well. The urinalysis showed signs of bacteria and white blood cells. A culture will be obtained. Progress Note #3: Progress Note CT scan shows signs of chronic changes around her pancreas and adrenal glands. They did recommend possible dedicated pancreas CT or MRI to further evaluate her pancreas at some point. No acute diverticulitis or abnormality with the kidneys are bladder or colon. She has chronic diverticulosis. She has mild to moderate constipation. Discussed results with the patient and will start on antibiotics for UTI. She states that she cannot tolerate the Bactrim or sulfa antibiotic however she takes a double strength pill and breaks it in half taking one half the pill twice a day. That way she takes a full pill once a day to help treat her infection. She states that if she takes more than that she ends up going off too much of the good bacteria in her gut and has problems. She was ordered a single Bactrim DS here and advised she could break it in half if she would like. For the pharmacy will prescribe a single strength Bactrim so she would not have to break them in half. Encouraged continued follow-up and work with her regular provider for further evaluation and continued care. She states that she has been getting night sweats so this could be related back to her infection however may also be related to medications or thyroid or multiple other issues. This would be something that working with her regular provider can be helpful to determine. Diagnostic Imaging Diagonstic Imaging: CT Plain Films/CT/US/NM/MRI: abdomen, pelvis Comments NAME: RONEL UMAÑA [facility] REC#: [id number] PT STATUS: REG ER : 1960 PHYSICIAN: MACARENA CLARKE MD ADMIT DATE: 06/09/21/ER FS Draft Date of Exam:06/09/21 CT ABDOMEN/PELVIS W INDICATION: Unintentional weight loss. Loss of appetite. Nausea abdominal pain, generalized in nature. EXAMINATION: CT abdomen and pelvis with contrast, 06/09/2021. All CT scans use one or more of the following dose optimizing techniques: automated exposure control, MA and/or KvP adjustment based on patient size and exam type or iterative reconstruction. COMPARISON: 05/27/2021. FINDINGS: The visualized lungs appear clear. There is fatty infiltration throughout the liver which is stable from previous imaging. The gallbladder and spleen appear unremarkable. There is marked diffuse enlargement of the adrenal glands with a more focal, approximately 2.3 cm, lesion in the right adrenal gland stable from recent imaging. A left adrenal cyst is stable. Overall appearance of the adrenal glands stable from study of 08/10/2019. There is a 2 cm cystic lesion in the tail of the pancreas which is stable since 2020. Within the region of the pancreatic head there is an area of heterogeneous low density, nonspecific. An underlying mass is difficult to exclude. Dedicated pancreatic protocol CT versus MRI may provide further characterization and help exclude an underlying mass. There is no inflammatory change about the loops of bowel. No free air or free fluid. There are findings of moderate constipation. Diverticular disease noted without evidence for acute diverticulitis. There is diffuse atherosclerotic disease. There are postoperative changes within the lumbar spine. There is grade 1 anterolisthesis of L3 on L4, stable from recent imaging, with a compression deformity at L2 unchanged from recent imaging. IMPRESSION: 1. Stable cystic lesion in tail of the pancreas with questionable hypodense heterogeneous area within the pancreatic head. This could be volume averaging with the adjacent duodenum. An underlying lesion is difficult to exclude. See above recommendations. 2. Stable hyperplasia of the adrenal glands with associated lesions, unchanged. Other incidental findings as noted. Dictated on workstation # [id number] Dict: 06/09/21 1508 Trans: 06/09/21 1520 [facility] [id number] Interpreted by: LISSA JO MD Electronically signed by: Reviewed: Reviewed by Me Departure Impression Primary Impression: Acute cystitis without hematuria Additional Impression: Constipation Qualified Codes: K59.00 - Constipation, unspecified Disposition: HOME, SELF-CARE Condition: Stable Departure-Patient Inst. Decision time for Depature: 16:20 Referrals: TARUN LACY DO (PCP/Family) Primary Care Physician Patient Instructions: Urinary Tract Infection, Adult ED, Constipation, Adult ED Add. Discharge Instructions: Take the Bactrim (Sulfa) antibiotic to treat for urine infection. Continue to drink plenty of water and stay well hydrated. This will help flush out the urine infection and help with the constipation. Follow up with clinic for continued symptoms and evaluation. They may need to do additional testing or evaluation if your night sweats do not resolve with treatment of the urine infection. All discharge instructions reviewed with patient and/or family. Voiced understanding. Scripts Sulfamethoxazole/Trimethoprim (Sulfamethoxazole-Tmp Ss Tablet) 1 Each Tablet 1 EACH PO BID for UTI for 7 Days, #14 TAB 0 Refills Prov: MACARENA CLARKE MD 06/09/21 MACARENA CLARKE MD Jun 09, 2021 14:55
--- NOTE | 2021-06-09 15:21 | Diagnostic Imaging Report ---
INDICATION: Unintentional weight loss. Loss of appetite. Nausea abdominal pain, generalized in nature. EXAMINATION: CT abdomen and pelvis with contrast, 06/09/2021. All CT scans use one or more of the following dose optimizing techniques: automated exposure control, MA and/or KvP adjustment based on patient size and exam type or iterative reconstruction. COMPARISON: 05/27/2021. FINDINGS: The visualized lungs appear clear. There is fatty infiltration throughout the liver which is stable from previous imaging. The gallbladder and spleen appear unremarkable. There is marked diffuse enlargement of the adrenal glands with a more focal, approximately 2.3 cm, lesion in the right adrenal gland stable from recent imaging. A left adrenal cyst is stable. Overall appearance of the adrenal glands stable from study of 08/10/2019. There is a 2 cm cystic lesion in the tail of the pancreas which is stable since 2020. Within the region of the pancreatic head there is an area of heterogeneous low density, nonspecific. An underlying mass is difficult to exclude. Dedicated pancreatic protocol CT versus MRI may provide further characterization and help exclude an underlying mass. There is no inflammatory change about the loops of bowel. No free air or free fluid. There are findings of moderate constipation. Diverticular disease noted without evidence for acute diverticulitis. There is diffuse atherosclerotic disease. There are postoperative changes within the lumbar spine. There is grade 1 anterolisthesis of L3 on L4, stable from recent imaging, with a compression deformity at L2 unchanged from recent imaging. IMPRESSION: 1. Stable cystic lesion in tail of the pancreas with questionable hypodense heterogeneous area within the pancreatic head. This could be volume averaging with the adjacent duodenum. An underlying lesion is difficult to exclude. See above recommendations. 2. Stable hyperplasia of the adrenal glands with associated lesions, unchanged. Other incidental findings as noted. Dictated by: Dictated on workstation # [id number]
[2021-06-09 15:31] LABS: BILIRUBIN,URINE NEGATIVE (NEGATIVE); CLARITY,URINE CLEAR; COLOR,URINE YELLOW; GLUCOSE, URINE (UA) NEGATIVE (NEGATIVE); KETONES,URINE NEGATIVE (NEGATIVE); LEUKOCYTE ESTERASE ,URINE NEGATIVE (NEGATIVE); NITRITE,URINE NEGATIVE (NEGATIVE); PH,URINE 6.5 (5-9); PROTEIN,URINE NEGATIVE (NEGATIVE)
[2021-06-09 15:32] LABS: BACTERIA,URINE LARGE /HPF; WBC,URINE 0-2 /HPF
[2021-06-09] MEDS ORDERED: TRIM/SULFAMETH 160/800 (SEPTRA DS) TAB PO STA (16:14)
[2021-06-09] MEDS ORDERED: SULF-11 PO (16:20)
[2021-06-09 16:21] VITALS: BP 135/89
== END 2021-06-09 16:27 | disposition home or self-care (01) ==
LOC: EDUNIT# 13:57 → ER FS 13:58
DX: N30.00 Acute cystitis without hematuria (principal); K59.00 Constipation, unspecified; J44.9 Chronic obstructive pulmonary disease, unspecified; I25.2 Old myocardial infarction; I10 Essential (primary) hypertension; F41.9 Anxiety disorder, unspecified; F31.9 Bipolar disorder, unspecified; G89.29 Other chronic pain; M54.9 Dorsalgia, unspecified; Z79.899 Other long term (current) drug therapy; Z79.891 Long term (current) use of opiate analgesic
CPT/HCPCS: 36415; 74177; 80053; 81000; 83605; 83690; 83880; 84484; 85025; 86141; 87040; 87088

== ENCOUNTER 2021-07-30 13:08 | Emergency (ER) | payer MEDICARE, MEDICAID ==
[~2021-07-30] VITALS: Ht 162 cm; Wt 80.0 kg
[~2021-07-30 13:08] MED LIST changes: +SULF-11 PO
--- NOTE | 2021-07-30 13:11 | ED Chest Pain ---
General Stated Complaint: CHEST PAIN History of Present Illness Date Seen by Provider: Jul 30, 2021 Time Seen by Provider: 13:10 Initial Comments 61-year-old female presents with chest pain. She reports that her "left boob" that radiated to her back. Started around 10 AM this morning. That is improved but still there. She denies any cough, shortness of breath. Patient reports that she does smoke and has a history of COPD. She also has some epigastric pain. She reports that the pain started while she was eating. She denies any nausea, vomiting, fever, chills. Allergies and Home Medications Allergies Coded Allergies: Penicillins (Verified Allergy, Unknown, 05/28/19) azithromycin (Verified Allergy, Unknown, 05/28/19) cefaclor (Verified Allergy, Unknown, 08/30/19) cephalexin (Verified Allergy, Unknown, 05/28/19) dexamethasone (Verified Allergy, Unknown, 08/30/19) erythromycin base (Verified Allergy, Unknown, 08/30/19) levofloxacin (Verified Allergy, Unknown, 08/30/19) methylprednisolone (Verified Allergy, Unknown, 08/30/19) tetracycline (Verified Allergy, Unknown, 05/28/19) Patient Home Medication List Home Medication List Reviewed: Yes Albuterol Sulfate (Proair Hfa) 1 Puff Puff, 2 PUFF IH Q4H Prescribed by: FREDRICK MOORE on 02/06/19 0303 Azithromycin (Zithromax) 250 Mg Tablet, 250 MG PO UD Prescribed by: FREDRICK LEOS on 08/30/19 1434 Clonazepam (Clonazepam) 0.5 Mg Tablet, (Reported) Entered as Reported by: RAMONA GARCIA on 04/22/17 1320 Dicyclomine HCl (Dicyclomine HCl) 20 Mg Tablet, 20 MG PO QID Prescribed by: BRAYAN GOVEA on 03/13/20 1906 Doxycycline Hyclate (Doxycycline Hyclate) 100 Mg Tablet, 100 MG PO BID Prescribed by: FREDRICK MOORE on 02/06/19 0306 Gabapentin (Gabapentin) 300 Mg Capsule, (Reported) Entered as Reported by: RAMONA GARCIA on 04/22/17 1320 Hydrocodone Bit/Acetaminophen (HYDROcodone/APAP 10/325 TABLET) 1 Each Tablet, (Reported) Entered as Reported by: RAMONA GARCIA on 04/22/17 1320 Orphenadrine Citrate (Orphenadrine Citrate) 100 Mg Tablet.er, 100 MG PO BID Prescribed by: MACARENA CLARKE on 05/28/19 220 Prednisone (Prednisone) 10 Mg Tab.ds.pk, 10 MG PO DAILY Prescribed by: FREDRICK MOORE on 02/06/19 0302 Prednisone (Prednisone) 20 Mg Tab, 60 MG PO DAILY Prescribed by: FREDRICK LEOS on 08/30/19 1434 Quetiapine Fumarate (Quetiapine Fumarate) 200 Mg Tablet, (Reported) Entered as Reported by: RAMONA GARCIA on 04/22/17 1320 Sertraline HCl (Sertraline HCl) 100 Mg Tablet, (Reported) Entered as Reported by: RAMONA GARCIA on 04/22/17 1320 Sulfamethoxazole/Trimethoprim (Bactrim Ds Tablet) 1 Each Tablet, 1 EACH PO BID Prescribed by: MACARENA CLARKE on 08/10/19 1929 Sulfamethoxazole/Trimethoprim (Sulfamethoxazole-Tmp Ss Tablet) 1 Each Tablet, 1 EACH PO BID Prescribed by: MACARENA CLARKE on 06/09/21 1620 [Flexeril] , 10 twice a day Prescribed by: BRISEIDA WILL on 04/22/17 1511 Review of Systems Review of Systems Constitutional: No chills, No fever Respiratory: Denies Cough, Denies Shortness of Air Cardiovascular: See HPI, Chest Pain; Denies Lightheadedness, Denies Palpitations Gastrointestinal: Abdominal Pain (Epigastric); Denies Nausea, Denies Vomiting Musculoskeletal: no symptoms reported Skin: no symptoms reported Psychiatric/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: No Symptoms Reported Endocrine: No Symptoms Reported Hematologic/Lymphatic: No Symptoms Reported Past Jdrpjch-Thibhb-Vfmwjd Hx Seasonal Allergies Seasonal Allergies: No Past Medical History Surgeries: Yes (BACK SX) Appendectomy, Brain Shunt, Hysterectomy, Orthopedic Respiratory: No (Tobaccoism) COPD Cardiac: Yes Heart Attack, Hypertension 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, has brain shunt) [employer] History: Hysterectomy Genitourinary: No Gastrointestinal: Yes (Hep C history ") Gastroesophageal Reflux, Diverticulosis, Hepatitis Musculoskeletal: Yes (Chronic pain- Buprenorphine) Arthritis, Chronic Back Pain Endocrine: No HEENT: No Cancer: No Psychosocial: Yes Anxiety, Bipolar, Depression Integumentary: No Blood Disorders: No Adverse Reaction/Blood Tranf: No Physical Exam Vital Signs Vital Signs - First Documented 07/30/21 13:57 Temp 37.9 Pulse 69 Resp 16 B/P (MAP) 148/91 (110) O2 Delivery Room Air Capillary Refill : Height, Weight, BMI Height: 5'4.00" Weight: 170lbs. oz. [id number]; 29.00 BMI Method:Stated General Appearance: No Apparent Distress, WD/WN Neck: Full Range of Motion Respiratory: Lungs Clear, Normal Breath Sounds Cardiovascular: Regular Rate, Rhythm, No Edema, Normal Peripheral Pulses Gastrointestinal: Soft, Tenderness (Mild epigastric ) Extremity: Normal Capillary Refill, Normal Inspection, Normal Range of Motion Neurologic/Psychiatric: Alert, Oriented x3, No Motor/Sensory Deficits, Normal Mood/Affect Skin: Normal Color, Warm/Dry Progress/Results/Core Measures Results/Orders Lab Results Laboratory Tests Test 07/30/21 13:10 Range/Units White Blood Count 8.7 4.3-11.0 10^3/uL Red Blood Count 4.91 3.80-5.11 10^6/uL Hemoglobin 14.3 11.5-16.0 g/dL Hematocrit 42 35-52 % Mean Corpuscular Volume 86 80-99 fL Mean Corpuscular Hemoglobin 29 25-34 pg Mean Corpuscular Hemoglobin Concent 34 32-36 g/dL Red Cell Distribution Width 14.1 10.0-14.5 % Platelet Count 277 130-400 10^3/uL Mean Platelet Volume 10.9 9.0-12.2 fL Immature Granulocyte % (Auto) 0 % Neutrophils (%) (Auto) 64 42-75 % Lymphocytes (%) (Auto) 28 12-44 % Monocytes (%) (Auto) 7 0-12 % Eosinophils (%) (Auto) 0 0-10 % Basophils (%) (Auto) 1 0-10 % Neutrophils # (Auto) 5.5 1.8-7.8 X 10^3 Lymphocytes # (Auto) 2.4 1.0-4.0 X 10^3 Monocytes # (Auto) 0.6 0.0-1.0 X 10^3 Eosinophils # (Auto) 0.0 0.0-0.3 10^3/uL Basophils # (Auto) 0.1 0.0-0.1 10^3/uL Immature Granulocyte # (Auto) 0.0 0.0-0.1 10^3/uL Prothrombin Time 12.5 12.2-14.7 SEC INR Comment 0.9 0.8-1.4 Activated Partial Thromboplast Time 26 24-35 SEC Sodium Level 139 135-145 MMOL/L Potassium Level 3.8 3.6-5.0 MMOL/L Chloride Level 104 98-107 MMOL/L Carbon Dioxide Level 23 21-32 MMOL/L Anion Gap 12 5-14 MMOL/L Blood Urea Nitrogen 8 7-18 MG/DL Creatinine 0.64 0.60-1.30 MG/DL Estimat Glomerular Filtration Rate 100 BUN/Creatinine Ratio 13 Glucose Level 113 H 70-105 MG/DL Calcium Level 10.0 8.5-10.1 MG/DL Corrected Calcium 9.8 8.5-10.1 MG/DL Magnesium Level 1.7 1.6-2.4 MG/DL Total Bilirubin 0.2 0.1-1.0 MG/DL Aspartate Amino Transf (AST/SGOT) 18 5-34 U/L Alanine Aminotransferase (ALT/SGPT) 13 0-55 U/L Alkaline Phosphatase 82 40-136 U/L Myoglobin 35.1 10.0-92.0 NG/ML Troponin I < 0.30 <0.30 NG/ML Total Protein 6.7 6.4-8.2 GM/DL Albumin 4.2 3.2-4.5 GM/DL Lipase 36 8-78 U/L My Orders Orders - JACKSON,PRACHI L DO Cbc With Automated Diff (07/30/21 13:11) Magnesium (07/30/21 13:11) Chest 1 View Ap/Pa Only (07/30/21 13:11) Ekg Tracing (07/30/21 13:11) Comprehensive Metabolic Panel (07/30/21 13:11) Myoglobin Serum (07/30/21 13:11) Protime With Inr (07/30/21 13:11) Partial Thromboplastin Time (07/30/21 13:11) Monitor-Rhythm Ecg Trace Only (07/30/21 13:11) Lipid Panel (07/31/21 06:00) Ed Iv/Invasive Line Start (07/30/21 13:11) Lipase (07/30/21 13:11) Troponin I Fs (07/30/21 13:11) Famotidine Injection (Pepcid Injection) (07/30/21 13:58) Vital Signs/I&O 07/30/21 13:57 Temp 37.9 Pulse 69 Resp 16 B/P (MAP) 148/91 (110) O2 Delivery Room Air Progress Progress Note : Progress Note Patient is chest pain/epigastric pain spontaneously resolved. Patient with a negative troponin x1. Since symptoms started around 10 AM this morning we are well passed the 3-hour first check with a negative troponin and negative labs. Patient with negative chest x-ray. Patient symptoms likely related to either her chronic bronchitis versus chronic GI issues and she is currently on Carafate and other GI medication. Patient stable, discharged home. She should follow- up with her primary care provider for further outpatient evaluation Initial ECG Impression Date: Jul 30, 2021 Initial ECG Impression Time: 13:01 Initial ECG Rate: 48 Initial ECG Rhythm: Normal Sinus Initial ECG Impression: Nonspecific Changes Comment No acute findings Diagnostic Imaging Diagonstic Imaging: Xray Plain Films/CT/US/NM/MRI: chest Comments Date of Exam:07/30/21 CHEST 1 VIEW AP/PA ONLY INDICATION: Chest pain. TECHNIQUE/COMPARISON: A frontal chest was obtained at 1:20 PM and compared to 12/05/2020. FINDINGS: The heart and mediastinal silhouette are normal in appearance. The lungs are clear. There is no pneumothorax or pleural fluid. IMPRESSION: Negative chest. Departure Impression Primary Impression: Epigastric pain Additional Impression: Chest pain Qualified Codes: R07.9 - Chest pain, unspecified Disposition: HOME, SELF-CARE Condition: Stable Departure-Patient Inst. Referrals: TARUN LACY DO (PCP/Family) Primary Care Physician Patient Instructions: Chest Pain That Is Not Caused by the Heart (DC) Add. Discharge Instructions: Follow-up with your primary care provider for further outpatient evaluation and recheck of today's symptoms PRACHI JACKSON DO Jul 30, 2021 13:11
[2021-07-30 13:22] LABS: BASOPHILS % (AUTO) 1 % (0-10); EOSINOPHILS % (AUTO) 0 % (0-10); HEMATOCRIT 42 % (35-52); HEMOGLOBIN 14.3 g/dL (11.5-16.0); LYMPHOCYTES % (AUTO) 28 % (12-44); MEAN CORPUSCULAR HEMOGLOBIN 29 pg (25-34); MEAN CORPUSCULAR HGB CONC 34 g/dL (32-36); MEAN CORPUSCULAR VOLUME 86 fL (80-99); MEAN PLATELET VOLUME 10.9 fL (9.0-12.2); MONOCYTES % (AUTO) 7 % (0-12); NEUTROPHILS # (AUTO) 5.5 X 10^3 (1.8-7.8); NEUTROPHILS % (AUTO) 64 % (42-75); PLATELET COUNT 277 10^3/uL (130-400); WHITE BLOOD COUNT 8.7 10^3/uL (4.3-11.0)
[2021-07-30 13:23] LABS: BASOPHILS # (AUTO) 0.1 10^3/uL (0.0-0.1); LYMPHOCYTES # (AUTO) 2.4 X 10^3 (1.0-4.0); MONOCYTES # (AUTO) 0.6 X 10^3 (0.0-1.0)
[2021-07-30 13:35] LABS: INR 0.9 (0.8-1.4); PROTHROMBIN TIME PATIENT 12.5 SEC (12.2-14.7)
--- NOTE | 2021-07-30 13:35 | Diagnostic Imaging Report ---
INDICATION: Chest pain. TECHNIQUE/COMPARISON: A frontal chest was obtained at 1:20 PM and compared to 12/05/2020. FINDINGS: The heart and mediastinal silhouette are normal in appearance. The lungs are clear. There is no pneumothorax or pleural fluid. IMPRESSION: Negative chest. Dictated by: Dictated on workstation # [id number]
[2021-07-30 13:50] LABS: CREATININE SERUM 0.64 MG/DL (0.60-1.30); POTASSIUM 3.8 MMOL/L (3.6-5.0)
[2021-07-30 13:51] LABS: ALBUMIN 4.2 GM/DL (3.2-4.5); BILIRUBIN,TOTAL 0.2 MG/DL (0.1-1.0); MAGNESIUM 1.7 MG/DL (1.6-2.4); TOTAL PROTEIN 6.7 GM/DL (6.4-8.2)
[2021-07-30] MEDS ORDERED: FAMOTIDINE 20MG/2ML IV (PEPCID) IV STA (13:58)
[2021-07-30 14:33] VITALS: BP 134/76
== END 2021-07-30 14:45 | disposition home or self-care (01) ==
LOC: EDUNIT# 13:08 → ER FS 13:09
DX: R10.13 Epigastric pain (principal); R07.9 Chest pain, unspecified; J44.9 Chronic obstructive pulmonary disease, unspecified; I25.2 Old myocardial infarction; I10 Essential (primary) hypertension; F41.9 Anxiety disorder, unspecified; F31.9 Bipolar disorder, unspecified; G89.29 Other chronic pain; M54.9 Dorsalgia, unspecified; Z79.899 Other long term (current) drug therapy; Z79.891 Long term (current) use of opiate analgesic
CPT/HCPCS: 36415; 71045; 80053; 83690; 83735; 83874; 84484; 85025; 85610; 85730; 93041

== ENCOUNTER 2021-08-23 06:10 | Emergency (ER) | payer MEDICARE, MEDICAID ==
[2021-08-23] MEDS ORDERED: KETOROLAC 30 MG/ML VIAL IVP ONE (06:30)
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
[2021-08-23] MEDS ORDERED: LIDO700A45 TP (06:39)
[2021-08-23 06:45] VITALS: BP 161/94
[2021-08-23] MEDS ORDERED: KETOROLAC 30 MG/ML VIAL IM ONE (06:45)
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
== END 2021-08-23 06:47 | disposition home or self-care (01) ==
LOC: EDUNIT# 06:10 → ER FS 06:13
DX: R07.89 Other chest pain (principal); I10 Essential (primary) hypertension; J44.9 Chronic obstructive pulmonary disease, unspecified; G89.29 Other chronic pain; M54.9 Dorsalgia, unspecified; F41.9 Anxiety disorder, unspecified; F31.9 Bipolar disorder, unspecified; F17.210 Nicotine dependence, cigarettes, uncomplicated; Z79.891 Long term (current) use of opiate analgesic; Z79.52 Long term (current) use of systemic steroids; Z79.899 Other long term (current) drug therapy
CPT/HCPCS: 71046

== ENCOUNTER → 2021-08-24 | Outpatient (CLI) | payer MEDICARE, MEDICAID ==
[~2021-08-24] MED LIST changes: +LIDO700A45 TP
--- NOTE | 2021-08-24 14:46 | Diagnostic Imaging Report ---
CLINICAL INDICATIONS: Patient with COPD and chest pain. EXAM: Chest x-ray PA and lateral views. COMPARISON: Chest x-ray dated 08/23/2021. FINDINGS: Lungs/pleura: Hyperinflated lungs are again seen. Lungs are clear. There is no pneumothorax. There is no pleural effusion. Mediastinum: Unremarkable. Pulmonary vasculature: Unremarkable. Heart: Unremarkable. Bones/extrathoracic soft tissue: There are degenerative spurs involving the thoracic spine. Partially visualized posterior lumbar fusion hardware noted. IMPRESSION: Stable chest x-ray exam with no interval radiographic evidence of acute cardiopulmonary process. Dictated by: Dictated on workstation # [id number]
--- NOTE | 2021-08-24 14:50 | Diagnostic Imaging Report ---
INDICATION: Chest pain COMPARISON: Imaging of the chest from the same date as well as from 03/07/2021 TECHNIQUE: Three radiographs of the right-sided ribs dated 08/24/2021 FINDINGS: Post surgical changes partially visualized within the lumbar spine. Vascular calcifications within the aortic arch. No large volume pleural effusion or pneumothorax. No displaced or healing rib fracture. No suspicious radiopaque foreign body. IMPRESSION: No acute displaced or healing rib fracture. No large-volume pleural effusion or pneumothorax. Dictated by: Dictated on workstation # [id number]
== END ==
LOC: RAD FS 11:33
PROVIDERS: ATTEND Family Medicine
DX: J44.9 Chronic obstructive pulmonary disease, unspecified (principal)
CPT/HCPCS: 71046; 71100

== ENCOUNTER 2021-08-29 15:59 | Emergency (ER) | payer MEDICARE, MEDICAID ==
[~2021-08-29] VITALS: Ht 162.6 cm; Wt 72.6 kg
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
[2021-08-29] MEDS ORDERED: KETOROLAC 30 MG/ML VIAL IM ONE (16:45)
[2021-08-29] MEDS ORDERED: LIDOCAINE 4% CREAM 5 GM (LMX) TOP ONE (16:45)
--- NOTE | 2021-08-29 16:53 | Diagnostic Imaging Report ---
INDICATION: Back pain post injury AP and lateral views of the thoracic spine are obtained The thoracic vertebrae are normal in height and alignment. There is no fracture or compression deformity in the thoracic levels. There is no subluxation. IMPRESSION: Negative thoracic spine. Dictated by: Dictated on workstation # [id number]
[2021-08-29 17:29] VITALS: BP 137/82
== END 2021-08-29 17:29 | disposition home or self-care (01) ==
LOC: EDUNIT# 15:59 → ER FS 16:00
DX: G89.29 Other chronic pain (principal); M54.6 Pain in thoracic spine; J44.9 Chronic obstructive pulmonary disease, unspecified; I25.2 Old myocardial infarction; I10 Essential (primary) hypertension; F41.9 Anxiety disorder, unspecified; F31.9 Bipolar disorder, unspecified; Z72.0 Tobacco use; Z79.899 Other long term (current) drug therapy
CPT/HCPCS: 72070

== ENCOUNTER → 2021-09-30 | Outpatient (CLI) | payer MEDICARE, MEDICAID ==
[2021-10-01 17:06] LABS: FREE T4 (FREE THYROXINE) 0.94 NG/DL (0.70-1.48)
== END ==
LOC: LAB FS 08:24
PROVIDERS: ATTEND Emergency Medicine
DX: I10 Essential (primary) hypertension (principal); G89.4 Chronic pain syndrome; G62.9 Polyneuropathy, unspecified
CPT/HCPCS: 36415; 80061; 84436; 84439; 84443; 84480

== ENCOUNTER → 2021-12-10 | Outpatient (CLI) | payer MEDICARE, MEDICAID ==
[2021-12-10 12:04] LABS: CREATININE SERUM 0.93 MG/DL (0.60-1.30); POTASSIUM 4.1 MMOL/L (3.6-5.0)
[2021-12-10 12:05] LABS: ALBUMIN 4.3 GM/DL (3.2-4.5); BILIRUBIN,TOTAL 0.3 MG/DL (0.1-1.0); TOTAL PROTEIN 6.9 GM/DL (6.4-8.2)
== END ==
LOC: LAB FS 10:00
PROVIDERS: ATTEND Nurse Practitioner Family
DX: R10.9 Unspecified abdominal pain (principal)
CPT/HCPCS: 36415; 80053

== ENCOUNTER → 2021-12-18 | Outpatient (CLI) | payer MEDICARE, MEDICAID ==
[~2021-12-18] MED LIST changes: +CATHETER FLUSH 10 ML SYR IV PRN; +HOLD METFORMIN - RECEIVED CONTRAST 20 ML VIAL IV SCH; +IOHEXOL 350 MG/ML 100 ML (OMNIPAQUE 350) VIAL IV ONE; +NS 100 ML (IVPB) BAG IV ONE
--- NOTE | 2022-01-02 08:55 | Diagnostic Imaging Report ---
PROCEDURE: CT abdomen and pelvis with contrast. TECHNIQUE: Multiple contiguous axial images were obtained through the abdomen and pelvis after administration of intravenous contrast. Auto Exposure Controls were utilized during the CT exam to meet ALARA standards for radiation dose reduction. All CT scans use one or more of the following dose optimizing techniques: automated exposure control, MA and/or KvP adjustment based on patient size and exam type or iterative reconstruction. INDICATION: Generalized abdominal pain. COMPARISON: 06/09/2021 There is old fracture deformity involving the anterior aspect of left 7th rib. Below the diaphragm, no focal hepatic or splenic abnormality is identified. 2 cm fluid density nodule is again seen in the tail of the pancreas without significant change. There is no evidence of biliary or pancreatic ductal dilatation. Diffuse enlargement of low-density adrenal glands is stable bilaterally. There has been slight increase in left upper pole renal cyst which reaches 2.2 cm in maximal diameter. There is no evidence of pathologically enlarged adenopathy. No free fluid seen within the abdomen or pelvis. Unopacified urinary bladder is unremarkable. Surgical findings are again noted in the lumbar region with degenerative findings in the upper lumbar region. IMPRESSION: Stable overall appearance of presumed cyst in the pancreatic tail and diffuse low-density enlargement of the adrenal glands. Overall, there is no evidence of new abnormality or adverse change. Dictated by: Dictated on workstation # [id number]
== END ==
LOC: RAD FS 12-10 10:22
PROVIDERS: ATTEND Nurse Practitioner Family
DX: K86.3 Pseudocyst of pancreas (principal); K86.2 Cyst of pancreas
CPT/HCPCS: 36415; 74177; 80053; Q9967

== ENCOUNTER → 2022-01-10 | Outpatient (CLI) | payer MEDICARE, MEDICAID ==
[~2022-01-10] MED LIST changes: -CATHETER FLUSH 10 ML SYR IV PRN; +GADOTERATE 0.5 MMOL/ML (CLARISCAN) 15 ML VIAL IV ONE; -HOLD METFORMIN - RECEIVED CONTRAST 20 ML VIAL IV SCH; -IOHEXOL 350 MG/ML 100 ML (OMNIPAQUE 350) VIAL IV ONE; -NS 100 ML (IVPB) BAG IV ONE
--- NOTE | 2022-01-10 16:17 | Diagnostic Imaging Report ---
EXAMINATION: MRI of the abdomen without contrast. MRCP TECHNIQUE: Multiplanar, multisequence MR images of the abdomen were obtained without intravenous contrast including 3D MIP MRCP images. HISTORY: Pancreatic lesion evaluation COMPARISON: 12/18/2021 FINDINGS: Liver: Normal in signal and morphology. Gallbladder and Bile Ducts: No cholelithiasis. No intra or extrahepatic bile duct dilation. Pancreas: There is a 2.2 cm cystic lesion within the pancreatic tail which does not demonstrate any obvious solid component. Evaluation is limited without IV contrast. No pancreatic ductal dilatation. Spleen: Normal. Adrenal glands: There is a 2.1 cm right adrenal nodule which demonstrates dropout on out of phase images compatible with an adrenal adenoma. Kidneys: There is a left renal cyst which requires no followup. No hydronephrosis. Lymph Nodes: No abdominal lymphadenopathy. Other: No ascites. IMPRESSION: 1. Overall stable appearance of a 2.2 cm pancreatic tail lesion without obvious solid component or ductal dilatation. No significant change from prior CT dating back to 08/10/2019. Findings favor chronic pseudocyst. If there is any history of pancreatitis versus cystic neoplasm such as IPMN. Consider MRI followup every 2 years. Dictated by: Dictated on workstation # [id number]
== END ==
LOC: RAD 14:45
PROVIDERS: ATTEND Nurse Practitioner Family
DX: K86.9 Disease of pancreas, unspecified (principal)
CPT/HCPCS: 74181

== ENCOUNTER 2022-05-02 11:18 | Emergency (ER) | payer MEDICARE, MEDICAID ==
[~2022-05-02 11:18] MED LIST changes: -GADOTERATE 0.5 MMOL/ML (CLARISCAN) 15 ML VIAL IV ONE
[2022-05-02] MEDS ORDERED: KETOROLAC 60 MG/2 ML VIAL IM ONE (11:45)
--- NOTE | 2022-05-02 11:47 | ED General ---
General Chief Complaint: General Problems/Pain Stated Complaint: BACK PAIN/ GENERAL PAIN Nursing Triage Note: GENERALIZED PAIN ALL OVER FROM MOVING SOME BOXES. "I WANT A TORADOL SHOT" Source of Information: Patient Exam Limitations: No Limitations History of Present Illness Date Seen by Provider: May 02, 2022 Time Seen by Provider: 11:20 Initial Comments Patient is a 62-year-old female with history of chronic neck back shoulder and knee pain who presents with exacerbation of chronic pain. Pain is moderate to severe. Patient has been helping her mother move and has been lifting heavy boxes throughout the past 2 weeks. She is currently on pew for known and Zanaflex which she is taking with limited relief. She denies radicular pains, motor weakness or loss of sensation. No other acute symptoms or complaints. Timing/Duration: 2-3 Days Severity: Moderate Modifying Factors: improves with Other Associated Systoms: Other Allergies and Home Medications Allergies Coded Allergies: Penicillins (Verified Allergy, Unknown, 05/28/19) azithromycin (Verified Allergy, Unknown, 05/28/19) cefaclor (Verified Allergy, Unknown, 08/30/19) cephalexin (Verified Allergy, Unknown, 05/28/19) dexamethasone (Verified Allergy, Unknown, 08/30/19) erythromycin base (Verified Allergy, Unknown, 08/30/19) levofloxacin (Verified Allergy, Unknown, 08/30/19) methylprednisolone (Verified Allergy, Unknown, 08/30/19) tetracycline (Verified Allergy, Unknown, 05/28/19) Patient Home Medication List Home Medication List Reviewed: Yes Albuterol Sulfate (Proair Hfa) 1 Puff Puff, 2 PUFF IH Q4H Prescribed by: FREDRICK MOORE on 02/06/19 0303 Azithromycin (Zithromax) 250 Mg Tablet, 250 MG PO UD Prescribed by: FREDRICK LEOS on 08/30/19 1434 Clonazepam (Clonazepam) 0.5 Mg Tablet, (Reported) Entered as Reported by: RAMONA GARCIA on 04/22/17 1320 Dicyclomine HCl (Dicyclomine HCl) 20 Mg Tablet, 20 MG PO QID Prescribed by: BRAYAN OGVEA on 03/13/20 1906 Doxycycline Hyclate (Doxycycline Hyclate) 100 Mg Tablet, 100 MG PO BID Prescribed by: FREDRICK MOORE on 02/06/19 0306 Gabapentin (Gabapentin) 300 Mg Capsule, (Reported) Entered as Reported by: RAMONA GARCIA on 04/22/17 1320 Hydrocodone Bit/Acetaminophen (HYDROcodone/APAP 10/325 TABLET) 1 Each Tablet, (Reported) Entered as Reported by: RAMONA GARCIA on 04/22/17 1320 Lidocaine (Lidocaine 5% Patch) 1 Each Adh..patch, 1 EACH TP Q12H PRN for Neurop athic pain Prescribed by: BETY RICE on 08/23/21 0639 Orphenadrine Citrate (Orphenadrine Citrate) 100 Mg Tablet.er, 100 MG PO BID Prescribed by: MACARENA CLARKE on 05/28/19 2208 Prednisone (Prednisone) 10 Mg Tab.ds.pk, 10 MG PO DAILY Prescribed by: FREDRICK MOORE on 02/06/19 0302 Prednisone (Prednisone) 20 Mg Tab, 60 MG PO DAILY Prescribed by: FREDRICK LEOS on 08/30/19 1434 Quetiapine Fumarate (Quetiapine Fumarate) 200 Mg Tablet, (Reported) Entered as Reported by: RAMONA GARCIA on 04/22/17 1320 Sertraline HCl (Sertraline HCl) 100 Mg Tablet, (Reported) Entered as Reported by: RAMONA GARCIA on 04/22/17 1320 Sulfamethoxazole/Trimethoprim (Bactrim Ds Tablet) 1 Each Tablet, 1 EACH PO BID Prescribed by: MACARENA CLARKE on 08/10/19 1929 Sulfamethoxazole/Trimethoprim (Sulfamethoxazole-Tmp Ss Tablet) 1 Each Tablet, 1 EACH PO BID Prescribed by: MACARENA CLARKE on 06/09/21 1620 [Flexeril] , 10 twice a day Prescribed by: BRISEIDA WILL on 04/22/17 1511 Review of Systems Review of Systems Constitutional: see HPI EENTM: see HPI Respiratory: see HPI Cardiovascular: see HPI Gastrointestinal: see HPI Genitourinary: see HPI Musculoskeletal: see HPI Skin: see HPI Psychiatric/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: See HPI Hematologic/Lymphatic: See HPI Immunological/Allergic: see HPI All Other Systems Reviewed Negative Unless Noted: No Past Srsisoz-Pkjjrl-Medcpx Hx Patient Social History Tobacco Use?: Yes Tobacco type used: Cigarettes Smoking Status: Current Everyday Smoker Use of E-Cig and/or Vaping dev: No Substance use?: Yes Substance type: Marijuana Alcohol Use?: No Pt feels they are or have been: No Seasonal Allergies Seasonal Allergies: No Past Medical History Surgeries: Yes (BACK SX) Appendectomy, Brain Shunt, Hysterectomy, Orthopedic Respiratory: No (Tobaccoism) COPD Cardiac: Yes Heart Attack, Hypertension 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, has 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 shunt) [employer]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 oz. 77.789873xv; 27.00 BMI Method:Stated General Appearance: No Apparent Distress, WD/WN Eyes: Bilateral Eye Normal Inspection, Bilateral Eye PERRL, Bilateral Eye EOMI HEENT: PERRL/EOMI Neck: Full Range of Motion, Normal Inspection, Non Tender, Supple Respiratory: Decreased Breath Sounds Cardiovascular: Regular Rate, Rhythm Back: Muscle Spasm Neurologic/Psychiatric: Alert, Oriented x3, No Motor/Sensory Deficits Skin: Normal Color Focused Exam Sepsis Stage: Ruled Out Progress/Results/Core Measures Suspected Sepsis SIRS Temperature: Pulse: 67 Respiratory Rate: 18 Blood Pressure 115 /67 Mean: 83 Results/Orders My Orders Orders - BRAYAN GOVEA DO Ketorolac Injection (Toradol Injection) (05/02/22 11:45) Vital Signs/I&O 05/02/22 11:20 Temp 36.3 Pulse 67 Resp 18 B/P (MAP) 115/67 (83) Pulse Ox 98 O2 Delivery Room Air Capillary Refill : Less Than 3 Seconds Blood Pressure Mean: 83 Departure Communication (Admissions) Exacerbation of chronic back. We will add anti-inflammatories to her current medication regimen with PCP follow-up for further management. Impression Primary Impression: Acute exacerbation of chronic low back pain Disposition: HOME, SELF-CARE Condition: Stable Departure-Patient Inst. Decision time for Depature: 11:48 Referrals: TARUN LACY DO (PCP/Family) Primary Care Physician Patient Instructions: CHRONIC PAIN Add. Discharge Instructions: You were evaluated in the emergency department for exacerbation of chronic back pain. Please continue home medications and fill new medications and take as directed. Follow-up with your PCP for further management. All discharge instructions reviewed with patient and/or family. Voiced understanding. Scripts Ondansetron (Ondansetron Odt) 4 Mg Tab.rapdis 4 MG SL Q4H PRN for NAUSEA/VOMITING, #10 TAB Prov: BRAYAN GOVEA DO 05/02/22 Methylprednisolone (Medrol Dose pack) 4 Mg Tab 4 MG PO UD for 6 Days, #21 TAB as directed per dose pack Prov: BRAYAN GOVEA DO 05/02/22 BRAYAN GOVEA DO May 02, 2022 11:47
[2022-05-02] MEDS ORDERED: ONDA4TAB11 SL (11:49)
[2022-05-02] MEDS ORDERED: NF-METHYLP PO (11:49)
[2022-05-02 11:50] VITALS: BP 115/67
== END 2022-05-02 11:51 | disposition home or self-care (01) ==
LOC: EDUNIT# 11:18 → ER FS 11:20
DX: M54.50 Low back pain, unspecified (principal); G89.29 Other chronic pain; F17.210 Nicotine dependence, cigarettes, uncomplicated; Z98.890 Other specified postprocedural states
CPT/HCPCS: 96372; 99285

== ENCOUNTER 2022-06-14 12:42 | Emergency (ER) | payer MEDICARE, MEDICAID ==
[~2022-06-14] VITALS: Ht 162.6 cm; Wt 73.5 kg
[~2022-06-14 12:42] MED LIST changes: +ALBU8.5H6 IH; +NF-METHYLP PO; +ONDA4TAB11 SL; -RT-ALBUINH IH
[2022-06-14 13:15] VITALS: BP 134/79
[2022-06-14] MEDS ORDERED: ACETAMINOPHEN 500 MG TAB (TYLENOL) PO ONE ×2 (13:30→13:45)
[2022-06-14] MEDS ORDERED: KETOROLAC 60 MG/2 ML VIAL IM ONE (13:45)
--- NOTE | 2022-06-14 13:46 | ED EENT ---
History of Present Illness General Chief Complaint: Ear Problems Stated Complaint: RT EAR PAIN Nursing Triage Note: Patient reports she began having right ear pain this morning, states she took tylenol and pseudophed at 0800 for the ear pain and sinus pressure. She reports she felt her right ear pop and has a small amount of blood on a cotton ball that was in her ear. She states she can still hear out of her right ear. Source: patient Exam Limitations: no limitations History of Present Illness Date Seen by Provider: Jun 14, 2022 Time Seen by Provider: 13:00 Initial Comments Patient is a 62-year-old female who presents with right ear pain and bloody otorrhea starting this morning. Patient has had Tylenol and Sudafed for sinus pain and congestion. She felt her ear pop this morning with a small amount of blood draining from the ear. She denies change of hearing tenderness but reports continued sharp pain. She has not take any pain medications. Symptoms began just prior to ED arrival. No other acute symptoms or complaints. Timing/Duration: abrupt Severity: moderate Location: other Prearrival Treatment: other Modifying Factors: Improves With Other Associated Symptoms: other Allergies and Home Medications Allergies Coded Allergies: Penicillins (Verified Allergy, Unknown, 05/28/19) azithromycin (Verified Allergy, Unknown, 05/28/19) cefaclor (Verified Allergy, Unknown, 08/30/19) cephalexin (Verified Allergy, Unknown, 05/28/19) dexamethasone (Verified Allergy, Unknown, 08/30/19) erythromycin base (Verified Allergy, Unknown, 08/30/19) levofloxacin (Verified Allergy, Unknown, 08/30/19) methylprednisolone (Verified Allergy, Unknown, 08/30/19) tetracycline (Verified Allergy, Unknown, 05/28/19) Patient Home Medication List Home Medication List Reviewed: No Albuterol Sulfate (Ventolin Hfa) 1 Puff Puff, 2 PUFF IH Q4H Prescribed by: FREDRICK MOORE on 02/06/19 0303 Azithromycin (Zithromax) 250 Mg Tablet, 250 MG PO UD Prescribed by: FREDRICK LEOS on 08/30/19 1434 Clonazepam (Clonazepam) 0.5 Mg Tablet, (Reported) Entered as Reported by: RAMONA GARCIA on 04/22/17 1320 Dicyclomine HCl (Dicyclomine HCl) 20 Mg Tablet, 20 MG PO QID Prescribed by: BRAYAN GOVEA on 03/13/20 190 Doxycycline Hyclate (Doxycycline Hyclate) 100 Mg Tablet, 100 MG PO BID Prescribed by: FREDRICK MOORE on 02/06/19 030 Gabapentin (Gabapentin) 300 Mg Capsule, (Reported) Entered as Reported by: RAMONA GARCIA on 04/22/17 1320 Hydrocodone Bit/Acetaminophen (HYDROcodone/APAP 10/325 TABLET) 1 Each Tablet, (Reported) Entered as Reported by: RAMONA GARCIA on 04/22/17 1320 Lidocaine (Lidocaine 5% Patch) 1 Each Adh..patch, 1 EACH TP Q12H PRN for Neuropathic pain Prescribed by: BETY RICE on 08/23/21 0639 Methylprednisolone (Medrol Dose pack) 4 Mg Tab, 4 MG PO UD Prescribed by: BRAYAN GOVEA on 05/02/22 1149 Ondansetron (Ondansetron Odt) 4 Mg Tab.rapdis, 4 MG SL Q4H PRN for NAUSEA/VOMITING Prescribed by: BRAYAN GOVEA on 05/02/22 1149 Orphenadrine Citrate (Orphenadrine Citrate) 100 Mg Tablet.er, 100 MG PO BID Prescribed by: MACARENA CLARKE on 05/28/19 220 Prednisone (Prednisone) 10 Mg Tab.ds.pk, 10 MG PO DAILY Prescribed by: FREDRICK MOORE on 02/06/19 030 Prednisone (Prednisone) 20 Mg Tab, 60 MG PO DAILY Prescribed by: FREDRICK LEOS on 08/30/19 1434 Quetiapine Fumarate (Quetiapine Fumarate) 200 Mg Tablet, (Reported) Entered as Reported by: RAMONA GARCIA on 04/22/17 1320 Sertraline HCl (Sertraline HCl) 100 Mg Tablet, (Reported) Entered as Reported by: RAMONA GARCIA on 04/22/17 1320 Sulfamethoxazole/Trimethoprim (Bactrim Ds Tablet) 1 Each Tablet, 1 EACH PO BID Prescribed by: MACARENA CLARKE on 08/10/19 1929 Sulfamethoxazole/Trimethoprim (Sulfamethoxazole-Tmp Ss Tablet) 1 Each Tablet, 1 EACH PO BID Prescribed by: MACARENA CLARKE on 06/09/21 1620 [Flexeril] , 10 twice a day Prescribed by: BRISEIDA WILL on 04/22/17 1511 Review of Systems Review of Systems Constitutional: see HPI Eyes: See HPI Ears: See HPI Nose: see HPI Mouth: see HPI Throat: see HPI Respiratory: see HPI Cardiovascular: see HPI Gastrointestinal: see HPI Musculoskeletal: see HPI Skin: see HPI 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: See HPI Hematologic/Lymphatic: See HPI Immunological/Allergic: see HPI All Other Systems Reviewed Negative Unless Noted: No Past Njijpqq-Nljejy-Ocyvld Hx Patient Social History Tobacco Use?: No Seasonal Allergies Seasonal Allergies: No Past Medical History Surgeries: Yes (BACK SX) Appendectomy, Brain Shunt, Hysterectomy, Orthopedic Respiratory: No (Tobaccoism) COPD Cardiac: Yes Heart Attack, Hypertension 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, has 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 shunt) 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 oz. 77.727446io; 27.00 BMI Method:Stated General Appearance: WD/WN, no apparent distress Eyes: bilateral eye normal inspection, bilateral eye PERRL, bilateral eye EOMI Ears: right ear TM dull, right ear TM red; bilateral ear auricle normal, bilateral ear other (Blood-tinged cotton ball in ear, no foreign body, active bleeding or identified perforation) Neck: non-tender, full range of motion Progress/Results/Core Measures Results/Orders My Orders Orders - BRAYAN GOVEA DO Ketorolac Injection (Toradol Injection) (06/14/22 13:45) Vital Signs/I&O 06/14/22 13:15 Temp 36.1 Pulse 77 Resp 18 B/P (MAP) 134/79 (97) Pulse Ox 95 O2 Delivery Room Air Blood Pressure Mean: 97 Departure Communication (Admissions) Patient with suspected perforated TM due to serous otorrhea. Will place on antibiotics pain medications with instructions to follow-up with local presents. Return precautions reviewed. Patient verbalizes understanding agreement with discharge instructions prior to departure peer Impression Primary Impression: Right ear pain Additional Impression: Perforated tympanic membrane Disposition: 01 HOME, SELF-CARE Condition: Stable Departure-Patient Inst. Decision time for Depature: 13:55 Referrals: TARUN LACY DO (PCP) Primary Care Physician Patient Instructions: Ruptured Eardrum ED, Ear Infections (Otitis Media) in Adults (DC) Scripts Sulfamethoxazole/Trimethoprim (Bactrim Ds Tablet) 800 Mg-160 Mg Tablet 1 EACH PO BID, #14 TAB Prov: BRAYAN GOVEA DO 06/14/22 Hydrocodone/Acetaminophen (Hydrocodone-Acetamin 5-325 mg) 5 Mg-325 Mg Tablet 1 TAB PO Q4H PRN for PAIN-MODERATE (5-7), #10 TAB Prov: BRAYAN GOVEA DO 06/14/22 BRAYAN GOVEA DO Jun 14, 2022 13:46
[2022-06-14] MEDS ORDERED: ACHD5005 PO (13:57)
[2022-06-14] MEDS ORDERED: SULF-221 PO (13:57)
== END 2022-06-14 14:06 | disposition home or self-care (01) ==
LOC: EDUNIT# 12:42 → ER FS 12:43
DX: H72.91 Unspecified perforation of tympanic membrane, right ear (principal); Z88.1 Allergy status to other antibiotic agents; Z28.310 Unvaccinated for COVID-19
CPT/HCPCS: 99284

== ENCOUNTER 2022-08-20 16:15 | Emergency (ER) | payer MEDICARE, MEDICAID ==
[~2022-08-20] VITALS: Ht 162.6 cm; Wt 78.9 kg
[~2022-08-20 16:15] MED LIST changes: +ACHD5005 PO; +SULF-221 PO
[2022-08-20] MEDS ORDERED: morphine INJ 10 MG/ML 1ML (SYR OR VIAL) IM STA (16:30)
[2022-08-20] MEDS ORDERED: SULF-221 PO (16:35)
--- NOTE | 2022-08-20 16:35 | ED EENT ---
History of Present Illness General Chief Complaint: Ear Problems Stated Complaint: RIGHT EARACHE Source: patient History of Present Illness Date Seen by Provider: Aug 20, 2022 Time Seen by Provider: 16:19 Initial Comments 62-year-old female presenting with complaints of acute on chronic right ear pain. She has been dealing with problems with the right ear for a long time. In the last 5 weeks she has had pain and infection to the right ear. She tried some eardrops without improvement as well as using a nasal steroid spray. She went to see Dr. LACY, her PCP, on Thursday and he advised her that there was still fluid behind her eardrum so she was to restart the eardrops in addition to the nasal spray. She presents to the emergency department today because she feels like the pain is worsening instead of improving. She has had previous fracture of the right eardrum and was concerned that was going to happen again. She is getting headaches and pain to the right side of her head from the infection. Timing/Duration: gradual Severity: severe Location: ear (R) Prearrival Treatment: over the counter meds, prescription meds Modifying Factors: Worse With Activity, Worse With Coughing Associated Symptoms: change in hearing (Decreased from the right ear); No cough, No drooling, No ear drainage; facial pain/swelling (Right-sided); No fever, No malaise, No nasal congestion/drainage, No poor fluid intake, No poor solids intake, No sinus infection, No sore throat, No tooth pain, No voice change Allergies and Home Medications Allergies Coded Allergies: Penicillins (Verified Allergy, Unknown, 05/28/19) azithromycin (Verified Allergy, Unknown, 05/28/19) cefaclor (Verified Allergy, Unknown, 08/30/19) cephalexin (Verified Allergy, Unknown, 05/28/19) dexamethasone (Verified Allergy, Unknown, 08/30/19) erythromycin base (Verified Allergy, Unknown, 08/30/19) levofloxacin (Verified Allergy, Unknown, 08/30/19) methylprednisolone (Verified Allergy, Unknown, 08/30/19) tetracycline (Verified Allergy, Unknown, 05/28/19) Patient Home Medication List Home Medication List Reviewed: Yes Albuterol Sulfate (Ventolin Hfa) 1 Puff Puff, 2 PUFF IH Q4H Prescribed by: FREDRICK MOORE on 02/06/19 0303 Azithromycin (Zithromax) 250 Mg Tablet, 250 MG PO UD Prescribed by: FREDRICK LEOS on 08/30/19 1434 Clonazepam (Clonazepam) 0.5 Mg Tablet, (Reported) Entered as Reported by: RAMONA GARCIA on 04/22/17 1320 Dicyclomine HCl (Dicyclomine HCl) 20 Mg Tablet, 20 MG PO QID Prescribed by: BRAYAN GOVEA on 03/13/20 1906 Doxycycline Hyclate (Doxycycline Hyclate) 100 Mg Tablet, 100 MG PO BID Prescribed by: FREDRICK MOORE on 02/06/19 030 Gabapentin (Gabapentin) 300 Mg Capsule, (Reported) Entered as Reported by: RAMONA GARCIA on 04/22/17 1320 Hydrocodone Bit/Acetaminophen (HYDROcodone/APAP 10/325 TABLET) 1 Each Tablet, (Reported) Entered as Reported by: RAMONA GARCIA on 04/22/17 1320 Hydrocodone/Acetaminophen (Hydrocodone-Acetamin 5-325 mg) 5 Mg-325 Mg Tablet, 1 TAB PO Q4H PRN for PAIN-MODERATE (5-7) Prescribed by: BRAYAN GOVEA on 06/14/22 1357 Lidocaine (Lidocaine 5% Patch) 1 Each Adh..patch, 1 EACH TP Q12H PRN for Neuropathic pain Prescribed by: BETY RICE on 08/23/21 0639 Methylprednisolone (Medrol Dose pack) 4 Mg Tab, 4 MG PO UD Prescribed by: BRAYAN GOVEA on 05/02/22 1149 Ondansetron (Ondansetron Odt) 4 Mg Tab.rapdis, 4 MG SL Q4H PRN for NAUSEA/VOMITING Prescribed by: BRAYAN GOVEA on 05/02/22 1149 Orphenadrine Citrate (Orphenadrine Citrate) 100 Mg Tablet.er, 100 MG PO BID Prescribed by: MACARENA CLARKE on 05/28/192207 Prednisone (Prednisone) 10 Mg Tab.ds.pk, 10 MG PO DAILY Prescribed by: FREDRICK MOORE on 02/06/19 030 Prednisone (Prednisone) 20 Mg Tab, 60 MG PO DAILY Prescribed by: FREDRICK LEOS on 08/30/19 1434 Quetiapine Fumarate (Quetiapine Fumarate) 200 Mg Tablet, (Reported) Entered as Reported by: RAMONA GARCIA on 04/22/17 1320 Sertraline HCl (Sertraline HCl) 100 Mg Tablet, (Reported) Entered as Reported by: RAMONA GARCIA on 04/22/17 1320 Sulfamethoxazole/Trimethoprim (Bactrim Ds Tablet) 1 Each Tablet, 1 EACH PO BID Prescribed by: MACARENA CLARKE on 08/10/19 1929 Sulfamethoxazole/Trimethoprim (Sulfamethoxazole-Tmp Ss Tablet) 1 Each Tablet, 1 EACH PO BID Prescribed by: MACARENA CLARKE on 06/09/21 1620 Sulfamethoxazole/Trimethoprim (Bactrim Ds Tablet) 800 Mg-160 Mg Tablet, 1 EACH PO BID Prescribed by: MACARENA CLARKE on 08/20/22 1635 [Flexeril] , 10 twice a day Prescribed by: BRISEIDA WILL on 04/22/17 1511 Review of Systems Review of Systems Constitutional: No chills, No fever Eyes: No Symptoms Reported Ears: See HPI Nose: no symptoms reported Mouth: no symptoms reported Respiratory: no symptoms reported Cardiovascular: no symptoms reported Gastrointestinal: no symptoms reported Past Ykytoob-Nyglww-Yrrulp Hx Seasonal Allergies Seasonal Allergies: No Past Medical History Surgery/Hospitalization HX: HTN, high cholesterol, diverticulitis Surgeries: Yes (BACK SX) Appendectomy, Brain Shunt, Hysterectomy, Orthopedic Respiratory: No (Tobaccoism) COPD Cardiac: Yes Heart Attack, Hypertension 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, has brain shunt) [employer] History: Hysterectomy Genitourinary: No Gastrointestinal: Yes (Hep C history ") Gastroesophageal Reflux, Diverticulosis, Hepatitis Musculoskeletal: Yes (Chronic pain- Buprenorphine) Arthritis, Chronic Back Pain Endocrine: No HEENT: No Cancer: No Psychosocial: Yes Anxiety, Bipolar, Depression Integumentary: No Blood Disorders: No Adverse Reaction/Blood Tranf: No Physical Exam Height, Weight, BMI Height: 5'4.00" Weight: 170lbs. oz. 77.182092kc; 27.00 BMI Method:Stated General Appearance: other (Chronically ill-appearing) Eyes: bilateral eye PERRL, bilateral eye EOMI Ears: right ear erythema, right ear swelling, right ear tenderness, right ear TM dull, right ear TM red, right ear TM bulging Neurologic/Psychiatric: alert, oriented x 3 Skin: normal color, warm/dry Progress/Results/Core Measures Results/Orders My Orders Orders - MACARENA CLARKE MD Morphine Injection (Morphine Injection (08/20/22 16:30) Progress Progress Note : Progress Note On exam patient still had evidence of significant pressure and bulging TM. There is effusion present as well as erythema. Since she has already been doing eardrops and nasal steroid spray we will add an oral antibiotics to try and treat from the blood as well. She has allergies to multiple antibiotics but is able to tolerate Bactrim. 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 We will administer 10 mg of morphine IM x1 and send prescription to [facility] for Bactrim DS 1 p.o. twice daily x7 days. Encouraged to check back to the clinic for continued concerns and problems Departure Impression Primary Impression: Right otitis externa Qualified Codes: H60.311 - Diffuse otitis externa, right ear Additional Impressions: Right chronic serous otitis media Acute pain of right ear Disposition: HOME, SELF-CARE Condition: Stable Departure-Patient Inst. Decision time for Depature: 16:34 Referrals: TARUN LACY DO (PCP/Family) Primary Care Physician Patient Instructions: Ear Infections (Otitis Media) in Adults (DC), Fluid in the Ear ED, Outer Ear Infection ED Add. Discharge Instructions: Continue using the eardrops and the nasal steroid spray. Take the oral antibiotics to treat for infection in the middle ear. Stay well-hydrated and get plenty of rest. Follow-up through the clinic for continued pain and problems. All discharge instructions reviewed with patient and/or family. Voiced understanding. Scripts Sulfamethoxazole/Trimethoprim (Bactrim Ds Tablet) 800 Mg-160 Mg Tablet 1 EACH PO BID, #14 TAB Prov: MACARENA CLARKE MD 08/20/22 MACARENA CLARKE MD Aug 20, 2022 16:35
[2022-08-20 16:44] VITALS: BP 134/81
== END 2022-08-20 16:44 | disposition home or self-care (01) ==
LOC: EDUNIT# 16:15 → ER FS 16:17
DX: H60.91 Unspecified otitis externa, right ear (principal); H65.21 Chronic serous otitis media, right ear; Z88.0 Allergy status to penicillin; Z88.2 Allergy status to sulfonamides; Z28.310 Unvaccinated for COVID-19
CPT/HCPCS: 99284

== ENCOUNTER 2022-08-22 10:49 | Emergency (ER) | payer MEDICARE, MEDICAID ==
--- NOTE | 2022-08-22 11:09 | ED General ---
General Chief Complaint: Cardiac/General Problems Stated Complaint: ELEV BP Source of Information: Patient Exam Limitations: No Limitations History of Present Illness Date Seen by Provider: Aug 22, 2022 Time Seen by Provider: 10:52 Initial Comments 62-year-old female presents to the emergency department today for anxiety. She has a longstanding argument with her daughter, for more than 10 years off and on. She states she has been arguing with her daughter for the last couple of weeks" I need something fucking now." She is asking for something for anxiety. She does take hydroxyzine at home and has been using this without any relief. She denies any suicidal ideation. Allergies and Home Medications Allergies Coded Allergies: Penicillins (Verified Allergy, Unknown, 05/28/19) azithromycin (Verified Allergy, Unknown, 05/28/19) cefaclor (Verified Allergy, Unknown, 08/30/19) cephalexin (Verified Allergy, Unknown, 05/28/19) dexamethasone (Verified Allergy, Unknown, 08/30/19) erythromycin base (Verified Allergy, Unknown, 08/30/19) levofloxacin (Verified Allergy, Unknown, 08/30/19) methylprednisolone (Verified Allergy, Unknown, 08/30/19) tetracycline (Verified Allergy, Unknown, 05/28/19) Patient Home Medication List Home Medication List Reviewed: Yes Albuterol Sulfate (Ventolin Hfa) 1 Puff Puff, 2 PUFF IH Q4H Prescribed by: FREDRICK MOORE on 02/06/19 0303 Azithromycin (Zithromax) 250 Mg Tablet, 250 MG PO UD Prescribed by: FREDRICK LEOS on 08/30/19 1434 Clonazepam (Clonazepam) 0.5 Mg Tablet, (Reported) Entered as Reported by: RAMONA GARCIA on 04/22/17 1320 Dicyclomine HCl (Dicyclomine HCl) 20 Mg Tablet, 20 MG PO QID Prescribed by: BRAYAN GOVEA on 03/13/20 1906 Doxycycline Hyclate (Doxycycline Hyclate) 100 Mg Tablet, 100 MG PO BID Prescribed by: FREDRICK MOORE on 02/06/19 0306 Gabapentin (Gabapentin) 300 Mg Capsule, (Reported) Entered as Reported by: RAMONA GARCIA on 04/22/17 1320 Hydrocodone Bit/Acetaminophen (HYDROcodone/APAP 10/325 TABLET) 1 Each Tablet, (Reported) Entered as Reported by: RAMONA GARCIA on 04/22/17 1320 Hydrocodone/Acetaminophen (Hydrocodone-Acetamin 5-325 mg) 5 Mg-325 Mg Tablet, 1 TAB PO Q4H PRN for PAIN-MODERATE (5-7) Prescribed by: BRAYAN GOVEA on 06/14/22 1357 Lidocaine (Lidocaine 5% Patch) 1 Each Adh..patch, 1 EACH TP Q12H PRN for Neuropathic pain Prescribed by: BETY RICE on 08/23/21 0639 Methylprednisolone (Medrol Dose pack) 4 Mg Tab, 4 MG PO UD Prescribed by: BRAYAN GOVEA on 05/02/22 1149 Ondansetron (Ondansetron Odt) 4 Mg Tab.rapdis, 4 MG SL Q4H PRN for NAUSEA/VOMITING Prescribed by: BRAYAN GOVEA on 05/02/22 1149 Orphenadrine Citrate (Orphenadrine Citrate) 100 Mg Tablet.er, 100 MG PO BID Prescribed by: MACARENA CLARKE on 05/28/19 2208 Prednisone (Prednisone) 10 Mg Tab.ds.pk, 10 MG PO DAILY Prescribed by: FREDRICK MOORE on 02/06/19 0302 Prednisone (Prednisone) 20 Mg Tab, 60 MG PO DAILY Prescribed by: FREDRICK LEOS on 08/30/19 1434 Quetiapine Fumarate (Quetiapine Fumarate) 200 Mg Tablet, (Reported) Entered as Reported by: RAMONA GARCIA on 04/22/17 1320 Sertraline HCl (Sertraline HCl) 100 Mg Tablet, (Reported) Entered as Reported by: RAMONA GARCIA on 04/22/17 1320 Sulfamethoxazole/Trimethoprim (Bactrim Ds Tablet) 1 Each Tablet, 1 EACH PO BID Prescribed by: MACARENA CLARKE on 08/10/19 1929 Sulfamethoxazole/Trimethoprim (Sulfamethoxazole-Tmp Ss Tablet) 1 Each Tablet, 1 EACH PO BID Prescribed by: MACARENA AVILAYART on 06/09/21 1620 Sulfamethoxazole/Trimethoprim (Bactrim Ds Tablet) 800 Mg-160 Mg Tablet, 1 EACH PO BID Prescribed by: MACARENA SOLARESRT on 08/20/22 1635 [Flexeril] , 10 twice a day Prescribed by: BRISEIDA WILL on 04/22/17 1511 Review of Systems Review of Systems Constitutional: no symptoms reported EENTM: no symptoms reported Respiratory: no symptoms reported Cardiovascular: no symptoms reported Gastrointestinal: no symptoms reported Genitourinary: no symptoms reported Musculoskeletal: no symptoms reported Skin: no symptoms reported Psychiatric/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: Anxiety Hematologic/Lymphatic: No Symptoms Reported Immunological/Allergic: no symptoms reported Past Ikgducy-Zattiu-Abhewr Hx Patient Social History Tobacco Use?: Yes Tobacco type used: Cigarettes Smoking Status: Current Everyday Smoker Use of E-Cig and/or Vaping dev: No Substance use?: No Alcohol Use?: No Pt feels they are or have been: No Immunizations Up To Date First/Initial COVID19 Vaccinat: Denies Seasonal Allergies Seasonal Allergies: No Past Medical History Surgery/Hospitalization HX: HTN, high cholesterol, diverticulitis, anxiety Surgeries: Yes (BACK SX) Appendectomy, Brain Shunt, Hysterectomy, Orthopedic Respiratory: No (Tobaccoism) COPD Cardiac: Yes Heart Attack, Hypertension 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, has 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 shunt) 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 Genitourinary: No Gastrointestinal: Yes (Hep C history ") Gastroesophageal Reflux, Diverticulosis, Hepatitis Musculoskeletal: Yes (Chronic pain- Buprenorphine) Arthritis, Chronic Back Pain Endocrine: No HEENT: No Cancer: No Psychosocial: Yes Anxiety, Bipolar, Depression Integumentary: No Blood Disorders: No Adverse Reaction/Blood Tranf: No Family Medical History Reviewed Nursing Family Hx No Pertinent Family Hx Physical Exam Vital Signs Vital Signs - First Documented 08/22/22 10:52 Temp 36.7 Pulse 102 Resp 16 B/P (MAP) 139/92 (108) Pulse Ox 99 O2 Delivery Room Air Capillary Refill : Height, Weight, BMI Height: 5'4.00" Weight: 170lbs. oz. 77.346961on; 29.00 BMI Method:Stated General Appearance: WD/WN, Anxious Eyes: Bilateral Eye Normal Inspection, Bilateral Eye PERRL, Bilateral Eye EOMI HEENT: Normal ENT Inspection, Pharynx Normal Neck: Full Range of Motion, Normal Inspection, Non Tender, Supple Respiratory: Chest Non Tender, Lungs Clear, Normal Breath Sounds, No Accessory Muscle Use, No Respiratory Distress Cardiovascular: Regular Rate, Rhythm, No Murmur, Normal Peripheral Pulses Gastrointestinal: Normal Bowel Sounds, No Organomegaly, No Pulsatile Mass, Non Tender, Soft Extremity: Normal Capillary Refill, Normal Inspection, Normal Range of Motion, Non Tender, No Calf Tenderness Neurologic/Psychiatric: Alert, Oriented x3, No Motor/Sensory Deficits, Normal Mood/Affect Skin: Normal Color, Warm/Dry Progress/Results/Core Measures Suspected Sepsis SIRS Temperature: Pulse: Respiratory Rate: Blood Pressure / Mean: Results/Orders Vital Signs/I&O 08/22/22 10:52 Temp 36.7 Pulse 102 Resp 16 B/P (MAP) 139/92 (108) Pulse Ox 99 O2 Delivery Room Air Capillary Refill : Departure Communication (Admissions) Patient is hemodynamically stable. She is quite anxious, states that she has had these issues off and on with her daughter for 10+ years. She is not on any long-term mood stabilizers which I think is ultimately what is needed for her. I discussed this with her and she states she is unwilling to do this as she does not want to cause damage to her liver or kidneys. I discussed that while this is a possibility, its not frequent and certainly not assured that this would happen. She states she "does not want to take the chance." She is again requesting short acting medications for anxiety that is not hydroxyzine. She does take hydroxyzine as needed. I advised her that I do not give as needed benzos in the emergency department for anxiety. She is visibly upset with this and states "I need something fucking now." I advised that I was unwilling to give habit-forming medicines for this longstanding problem. She states understanding but is clearly frustrated and angry. I discussed long-term mood stabilizers with her and the need to get into see her primary doctor for this. She states understanding. She is discharged in stable condition. She is not suicidal. Impression Primary Impression: Anxiety Disposition: 01 HOME, SELF-CARE Condition: Stable Departure-Patient Inst. Referrals: TARUN LACY DO (PCP) Primary Care Physician Patient Instructions: Anxiety, Adult (DC) Add. Discharge Instructions: As discussed you should continue to take hydroxyzine every 6 hours as needed for the symptoms. I do believe you need to be on a long-term mood stabilizer which would have to come from your primary care doctor. Most other as needed medicines for anxiety are typically habit-forming and I do not recommend using these as this is a longstanding problem. All discharge instructions reviewed with patient and/or family. Voiced unders tanding. AIDTYA HUITRON DO Aug 22, 2022 11:09
[2022-08-22 11:11] VITALS: BP 139/92
== END 2022-08-22 11:10 | disposition home or self-care (01) ==
LOC: EDUNIT# 10:49 → ER FS 10:50
DX: F41.9 Anxiety disorder, unspecified (principal); F17.210 Nicotine dependence, cigarettes, uncomplicated; Z79.811 Long term (current) use of aromatase inhibitors; Z28.310 Unvaccinated for COVID-19
CPT/HCPCS: 99281

== ENCOUNTER 2022-10-25 02:05 | Emergency (ER) | payer MEDICARE, MEDICAID ==
--- NOTE | 2022-10-25 02:15 | ED General ---
General Stated Complaint: N/V History of Present Illness Date Seen by Provider: Oct 25, 2022 Time Seen by Provider: 02:13 Initial Comments 62-year-old female with PMH of skin tag removal on the left side of her flank earlier today, is here with complaints of pain in the area of skin tag removal and with the pain triggering nausea and vomiting. Patient states that she took Motrin and Tylenol and her buprinorphine, but it did not help the pain. Pt had dinner last night and was able to keep it down. Denies fever and chills, a bdominal pain, diarrhea, chest pain. Allergies and Home Medications Allergies Coded Allergies: Penicillins (Verified Allergy, Unknown, 05/28/19) azithromycin (Verified Allergy, Unknown, 05/28/19) cefaclor (Verified Allergy, Unknown, 08/30/19) cephalexin (Verified Allergy, Unknown, 05/28/19) dexamethasone (Verified Allergy, Unknown, 08/30/19) erythromycin base (Verified Allergy, Unknown, 08/30/19) levofloxacin (Verified Allergy, Unknown, 08/30/19) methylprednisolone (Verified Allergy, Unknown, 08/30/19) tetracycline (Verified Allergy, Unknown, 05/28/19) Patient Home Medication List Home Medication List Reviewed: Yes Albuterol Sulfate (Ventolin Hfa) 1 Puff Puff, 2 PUFF IH Q4H Prescribed by: FREDRICK MOORE on 02/06/19 0303 Azithromycin (Zithromax) 250 Mg Tablet, 250 MG PO UD Prescribed by: FREDRICK LEOS on 08/30/19 1434 Clonazepam (Clonazepam) 0.5 Mg Tablet, (Reported) Entered as Reported by: RAMONA GARCIA on 04/22/17 1320 Dicyclomine HCl (Dicyclomine HCl) 20 Mg Tablet, 20 MG PO QID Prescribed by: BRAYAN GOVEA on 03/13/20 1906 Doxycycline Hyclate (Doxycycline Hyclate) 100 Mg Tablet, 100 MG PO BID Prescribed by: FREDRICK MOORE on 02/06/19 0306 Gabapentin (Gabapentin) 300 Mg Capsule, (Reported) Entered as Reported by: RAMONA GARCIA on 04/22/17 1320 Hydrocodone Bit/Acetaminophen (HYDROcodone/APAP 10/325 TABLET) 1 Each Tablet, (Reported) Entered as Reported by: RAMONA GARCIA on 04/22/17 1320 Hydrocodone/Acetaminophen (Hydrocodone-Acetamin 5-325 mg) 5 Mg-325 Mg Tablet, 1 TAB PO Q4H PRN for PAIN-MODERATE (5-7) Prescribed by: BRAYAN GOVEA on 06/14/22 1357 Lidocaine (Lidocaine 5% Patch) 1 Each Adh..patch, 1 EACH TP Q12H PRN for Neuropathic pain Prescribed by: BETY RICE on 08/23/21 0639 Methylprednisolone (Medrol Dose pack) 4 Mg Tab, 4 MG PO UD Prescribed by: BRAYAN GOVEA on 05/02/22 1149 Ondansetron (Ondansetron Odt) 4 Mg Tab.rapdis, 4 MG SL Q4H PRN for NAUSEA/VOMITING Prescribed by: BRAYAN GOVEA on 05/02/22 1149 Orphenadrine Citrate (Orphenadrine Citrate) 100 Mg Tablet.er, 100 MG PO BID Prescribed by: MACARENA CLARKE on 05/28/19 2208 Prednisone (Prednisone) 10 Mg Tab.ds.pk, 10 MG PO DAILY Prescribed by: FREDRICK MOORE on 02/06/19 0302 Prednisone (Prednisone) 20 Mg Tab, 60 MG PO DAILY Prescribed by: FREDRICK LEOS on 08/30/19 1434 Quetiapine Fumarate (Quetiapine Fumarate) 200 Mg Tablet, (Reported) Entered as Reported by: RAMONA GARCIA on 04/22/17 1320 Sertraline HCl (Sertraline HCl) 100 Mg Tablet, (Reported) Entered as Reported by: RAMONA GARCIA on 04/22/17 1320 Sulfamethoxazole/Trimethoprim (Bactrim Ds Tablet) 1 Each Tablet, 1 EACH PO BID Prescribed by: MACARENA CLARKE on 08/10/19 1929 Sulfamethoxazole/Trimethoprim (Sulfamethoxazole-Tmp Ss Tablet) 1 Each Tablet, 1 EACH PO BID Prescribed by: MACARENA CLARKE on 06/09/21 1620 Sulfamethoxazole/Trimethoprim (Bactrim Ds Tablet) 800 Mg-160 Mg Tablet, 1 EACH PO BID Prescribed by: MACARENA CLARKE on 08/20/22 1635 [Flexeril] , 10 twice a day Prescribed by: BRISEIDA WILL on 04/22/17 1511 Review of Systems Review of Systems Constitutional: no symptoms reported EENTM: no symptoms reported Respiratory: no symptoms reported Cardiovascular: no symptoms reported Gastrointestinal: nausea, vomiting Genitourinary: no symptoms reported Musculoskeletal: no symptoms reported Skin: see HPI, other Psychiatric/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: No Symptoms Reported Hematologic/Lymphatic: No Symptoms Reported Immunological/Allergic: no symptoms reported Past Takbtsw-[id number]-[id number] Hx Immunizations Up To Date First/Initial COVID19 Vaccinat: Denies Seasonal Allergies Seasonal Allergies: No Past Medical History Surgery/Hospitalization HX: HTN, high cholesterol, diverticulitis, anxiety Surgeries: Yes (BACK SX) Appendectomy, Brain Shunt, Hysterectomy, Orthopedic Respiratory: No (Tobaccoism) COPD Cardiac: Yes Heart Attack, Hypertension 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, has brain shunt) 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 History: Hysterectomy Genitourinary: No Gastrointestinal: Yes (Hep C history ") Gastroesophageal Reflux, Diverticulosis, Hepatitis Musculoskeletal: Yes (Chronic pain- Buprenorphine) Arthritis, Chronic Back Pain Endocrine: No HEENT: No Cancer: No Psychosocial: Yes Anxiety, Bipolar, Depression Integumentary: No Blood Disorders: No Adverse Reaction/Blood Tranf: No Family Medical History No Pertinent Family Hx Physical Exam Vital Signs Vital Signs - First Documented 10/25/22 02:30 Temp 36.2 Pulse 56 Resp 18 B/P (MAP) 129/80 (96) Pulse Ox 97 O2 Delivery Room Air Capillary Refill : Height, Weight, BMI Height: 5'4.00" Weight: 170lbs. oz. [id number]; 29.00 BMI Method:Stated General Appearance: No Apparent Distress, WD/WN HEENT: PERRL/EOMI Neck: Full Range of Motion Respiratory: Chest Non Tender, Lungs Clear, Normal Breath Sounds Cardiovascular: Regular Rate, Rhythm, Other (Bandages present on the left side flank area where she had a skin tag removed earlier today) Gastrointestinal: Normal Bowel Sounds, No Organomegaly, Non Tender, Soft Back: Normal Inspection, No CVA Tenderness Extremity: Normal Range of Motion Neurologic/Psychiatric: Alert, Oriented x3, No Motor/Sensory Deficits Progress/Results/Core Measures Suspected Sepsis SIRS Temperature: Pulse: Respiratory Rate: Blood Pressure / Mean: Results/Orders My Orders Orders - XAVI ANNE MD Ketorolac Injection (Toradol Injection) (10/25/22 02:30) Ondansetron Injection (Zofran Injectio (10/25/22 02:30) Rx-Ondansetron Po (Rx-Zofran Po) (10/25/22 02:30) Fentanyl Inj (Sublimaze Injection) (10/25/22 03:15) Medications Given in ED Current Medications Medications Dose Ordered Sig/Sandra Route Start Time Stop Time Status Last Admin Dose Admin Ketorolac Tromethamine 15 mg ONCE ONCE IVP 10/25/22 02:30 10/25/22 02:31 DC 10/25/22 02:31 15 MG Ondansetron HCl 4 mg ONCE ONCE IVP 10/25/22 02:30 10/25/22 02:31 DC 10/25/22 02:30 4 MG Vital Signs/I&O 10/25/22 02:30 Temp 36.2 Pulse 56 Resp 18 B/P (MAP) 129/80 (96) Pulse Ox 97 O2 Delivery Room Air Capillary Refill : Progress Note : Progress Note 1. POST PROCEDURE PAIN & VOMITING: -Patient's vitals are stable and patient's symptoms are not proportionate with the clinical exam or procedure pain. - Zofran 4mg iv STAT/ Toradol 15mg iv STAT The Toradol is not working for the patient. Patient takes buprenorphine at home on a regular basis. Gave patient fentanyl 50 mcg in the ED -Patient feels improvement of her symptoms after taking Zofran -Take-home pack of Zofran given to be taken as needed for nausea and vomiting -Follow-up with PCP and dermatology within the next 3 to 5 days -The patient was seen in the ED, and treated appropriately to presentation at a specific point in time. Patient is informed that there is a possibility that disease and illness can evolve and change in acuity rapidly or slowly after patient is discharged from the ER. Precautionary advice given to the patient for immediate return to ER if symptoms worsen or do not resolve, and to seek emergency care sooner rather than later. Pt also advised on the importance of PCP follow up and compliance with management and follow up plan with PCP and/or specialist, as this is part of the management plan. Pt verbally expressed understanding. Departure Impression Primary Impression: Post procedure discomfort Disposition: 01 HOME, SELF-CARE Condition: Improved Departure-Patient Inst. Referrals: TARUN LACY DO (PCP/Family) Primary Care Physician Patient Instructions: Postoperative Pain (DC) Add. Discharge Instructions: -Take-home pack of Zofran given to be taken as needed for nausea and vomiting -Follow-up with PCP and dermatology within the next 3 to 5 days XAVI ANNE MD Oct 25, 2022 02:15
[2022-10-25 02:30] VITALS: BP 129/80
[2022-10-25] MEDS ORDERED: KETOROLAC 15 MG/ML VIAL IVP ONE (02:30)
[2022-10-25] MEDS ORDERED: RX-ONDANSETRON 4 MG ODT (ZOFRAN) PPK #4 PO PRN (02:30)
[2022-10-25] MEDS ORDERED: ONDANSETRON 4 MG/2 ML (SDV) Z0FRAN IVP ONE (02:30)
[2022-10-25] MEDS ORDERED: fentaNYL INJ 100 MCG/2 ML AMP IVP ONE (03:15)
[2022-10-25] MEDS ORDERED: PROM25TA14 PO (11:19)
[2022-10-25] MEDS ORDERED: PROM25SU44 RC (11:19)
== END 2022-10-25 03:29 | disposition home or self-care (01) ==
LOC: EDUNIT# 02:05 → ER FS 02:10
DX: G89.18 Other acute postprocedural pain (principal); Z28.310 Unvaccinated for COVID-19

== ENCOUNTER 2022-10-25 10:58 | Emergency (ER) | payer MEDICARE, MEDICAID ==
[2022-10-25] MEDS ORDERED: PROMETHAZINE INJ 25 MG/ML (PHENERGAN) AMP IM STA (11:12)
[2022-10-25] MEDS ORDERED: diphenhydrAMINE 25 MG TAB (BENADRYL) PO STA (11:12)
[2022-10-25] MEDS ORDERED: KETOROLAC 60 MG/2 ML VIAL IM STA (11:12)
[2022-10-25] MEDS ORDERED: ORPHENADRINE 60 MG/2 ML (NORFLEX) AMP (ED ONLY) IM STA (11:12)
[2022-10-25] MEDS ORDERED: PROM25TA14 PO (11:19)
[2022-10-25] MEDS ORDERED: PROM25SU44 RC (11:19)
--- NOTE | 2022-10-25 11:22 | ED General ---
General Chief Complaint: Abdominal/GI Problems Stated Complaint: ABD PAIN/NAUSEA Source of Information: Patient, Old Records History of Present Illness Date Seen by Provider: Oct 25, 2022 Time Seen by Provider: 11:03 Initial Comments 62-year-old female presenting with complaints of pain to her left upper abdomen and chest wall. She had a skin tag removed through the clinic yesterday and was having pain after that. She felt like the pain was causing her to have nausea and vomiting. She was reportedly throwing up so hard that it was hurting her side. She also feels like that aggravated arthritis and a old rib fracture on the left. She was unable to keep down medicine and came to the emergency department at 2 AM. She received Zofran and Toradol but was still having pain so then she got an additional dose of Zofran and a dose of fentanyl. After those medicines she was discharged home with a 4 pack of Zofran 4 mg ODT tablets to help with her symptoms. She states that she only has 1 of those pills left. She was continuing to vomit and having pain to her side. She had called the clinic to be seen there today but states they could not get her in. She had tried taking her home medications of buprenorphine, baclofen, ibuprofen but was unable to keep them down. She denies fever, chills, pain with urination, diarrhea. Timing/Duration: 12-24 Hours Severity: Severe Modifying Factors: improves with Medication (medication helped from 2 am ED visit but wore off); worse with Movement Associated Systoms: No Cough, No Diaphoresis, No Fever/Chills, No Headaches, No Loss of Appetite, No Malaise; Nausea/Vomiting; No Rash, No Seizure, No Shortness of Air, No Syncope, No Weakness Allergies and Home Medications Allergies Coded Allergies: Penicillins (Verified Allergy, Unknown, 05/28/19) azithromycin (Verified Allergy, Unknown, 05/28/19) cefaclor (Verified Allergy, Unknown, 08/30/19) cephalexin (Verified Allergy, Unknown, 05/28/19) dexamethasone (Verified Allergy, Unknown, 08/30/19) erythromycin base (Verified Allergy, Unknown, 08/30/19) levofloxacin (Verified Allergy, Unknown, 08/30/19) methylprednisolone (Verified Allergy, Unknown, 08/30/19) tetracycline (Verified Allergy, Unknown, 05/28/19) Patient Home Medication List Home Medication List Reviewed: Yes Albuterol Sulfate (Ventolin Hfa) 1 Puff Puff, 2 PUFF IH Q4H Prescribed by: FREDRICK MOORE on 02/06/19 0303 Azithromycin (Zithromax) 250 Mg Tablet, 250 MG PO UD Prescribed by: FERDRICK LEOS on 08/30/19 1434 Clonazepam (Clonazepam) 0.5 Mg Tablet, (Reported) Entered as Reported by: RAMONA GARCIA on 04/22/17 1320 Dicyclomine HCl (Dicyclomine HCl) 20 Mg Tablet, 20 MG PO QID Prescribed by: BRAYAN GOVEA on 03/13/20 1906 Doxycycline Hyclate (Doxycycline Hyclate) 100 Mg Tablet, 100 MG PO BID Prescribed by: FREDRICK MOORE on 02/06/19 030 Gabapentin (Gabapentin) 300 Mg Capsule, (Reported) Entered as Reported by: RAMONA GARCIA on 04/22/17 1320 Hydrocodone Bit/Acetaminophen (HYDROcodone/APAP 10/325 TABLET) 1 Each Tablet, (Reported) Entered as Reported by: RAMONA GARCIA on 04/22/17 1320 Hydrocodone/Acetaminophen (Hydrocodone-Acetamin 5-325 mg) 5 Mg-325 Mg Tablet, 1 TAB PO Q4H PRN for PAIN-MODERATE (5-7) Prescribed by: BRAYAN GOVEA on 06/14/22 1357 Lidocaine (Lidocaine 5% Patch) 1 Each Adh..patch, 1 EACH TP Q12H PRN for Neuropathic pain Prescribed by: BETY RICE on 08/23/21 0639 Methylprednisolone (Medrol Dose pack) 4 Mg Tab, 4 MG PO UD Prescribed by: BRAYAN GOVEA on 05/02/22 1149 Ondansetron (Ondansetron Odt) 4 Mg Tab.rapdis, 4 MG SL Q4H PRN for NAUSEA/VOMITING Prescribed by: BRAYAN GOVEA on 05/02/22 1149 Orphenadrine Citrate (Orphenadrine Citrate) 100 Mg Tablet.er, 100 MG PO BID Prescribed by: MACARENA CLARKE on 05/28/192207 Prednisone (Prednisone) 10 Mg Tab.ds.pk, 10 MG PO DAILY Prescribed by: FREDRICK MOORE on 02/06/19 030 Prednisone (Prednisone) 20 Mg Tab, 60 MG PO DAILY Prescribed by: FREDRICK LEOS on 08/30/19 1434 Promethazine HCl (Promethazine Tablet) 25 Mg Tablet, 25 MG PO Q6H PRN for NAUSEA/VOMITING Prescribed by: MACARENA CLARKE on 10/25/22 1119 Promethazine HCl (Promethazine Suppository) 25 Mg Supp.rect, 25 MG RC Q6H PRN for NAUSEA-2ND LINE Prescribed by: MACARENA CLARKE on 10/25/22 1119 Quetiapine Fumarate (Quetiapine Fumarate) 200 Mg Tablet, (Reported) Entered as Reported by: RAMONA GARCIA on 04/22/17 1320 Sertraline HCl (Sertraline HCl) 100 Mg Tablet, (Reported) Entered as Reported by: RAMONA GARCIA on 04/22/17 1320 Sulfamethoxazole/Trimethoprim (Bactrim Ds Tablet) 1 Each Tablet, 1 EACH PO BID Prescribed by: MACARENA CLARKE on 08/10/19 1929 Sulfamethoxazole/Trimethoprim (Sulfamethoxazole-Tmp Ss Tablet) 1 Each Tablet, 1 EACH PO BID Prescribed by: MACARENA CLARKE on 06/09/21 1620 Sulfamethoxazole/Trimethoprim (Bactrim Ds Tablet) 800 Mg-160 Mg Tablet, 1 EACH PO BID Prescribed by: MACARENA CLARKE on 08/20/22 1635 [Flexeril] , 10 twice a day Prescribed by: BRISEIDA WILL on 04/22/17 1511 Review of Systems Review of Systems Constitutional: No chills, No fever EENTM: no symptoms reported Respiratory: no symptoms reported Cardiovascular: no symptoms reported Gastrointestinal: see HPI Genitourinary: see HPI Musculoskeletal: see HPI Skin: see HPI; No change in color Psychiatric/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: Anxiety Past Cfkwwrl-[id number]-Elidtx Hx Patient Social History Tobacco Use?: Yes Tobacco type used: Cigarettes Smoking Status: Current Everyday Smoker Substance use?: No Alcohol Use?: No Pt feels they are or have been: No Immunizations Up To Date First/Initial COVID19 Vaccinat: Denies Second COVID19 Vaccination Bandar: Denies Third COVID19 Vaccination Date: Denies Seasonal Allergies Seasonal Allergies: No Past Medical History Surgery/Hospitalization HX: HTN, high cholesterol, diverticulitis, anxiety Surgeries: Yes (BACK SX) Appendectomy, Brain Shunt, Hysterectomy, Orthopedic Respiratory: No (Tobaccoism) COPD Cardiac: Yes Heart Attack, Hypertension 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, has brain shunt) 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: Hysterectomy Genitourinary: No Gastrointestinal: Yes (Hep C history ") Gastroesophageal Reflux, Diverticulosis, Hepatitis Musculoskeletal: Yes (Chronic pain- Buprenorphine) Arthritis, Chronic Back Pain Endocrine: No HEENT: No Cancer: No Psychosocial: Yes Anxiety, Bipolar, Depression Integumentary: No Blood Disorders: No Adverse Reaction/Blood Tranf: No Family Medical History No Pertinent Family Hx Physical Exam Vital Signs Vital Signs - First Documented 10/25/22 11:05 Temp 36.2 Pulse 70 Resp 18 B/P (MAP) 121/70 (87) Pulse Ox 100 O2 Delivery Room Air Capillary Refill : Height, Weight, BMI Height: 5'4.00" Weight: 170lbs. oz. [id number]; 29.00 BMI Method:Stated General Appearance: Chronically ill Respiratory: No Chest Non Tender (Tender to palpation along the left lower chest wall and upper abdomen); No Accessory Muscle Use, No Respiratory Distress, Decreased Breath Sounds, Expiration (wheezes in bases) Cardiovascular: Regular Rate, Rhythm, Normal Peripheral Pulses Gastrointestinal: Normal Bowel Sounds, No Pulsatile Mass, Soft; No Distended, No Guarding, No Rebound; Tenderness (Left upper abdominal wall tenderness to palpation) Extremity: Normal Capillary Refill, No Pedal Edema Neurologic/Psychiatric: Alert, Oriented x3 Skin: Normal Color, Warm/Dry; No Erythema; Other (bandaid changed over the area of skin tag removal. No fluctuance, drainage or erythema noted. Area has a black appearance and patient reports they had put charcoal on the wound after skin tag removal.) Progress/Results/Core Measures Suspected Sepsis SIRS Temperature: Pulse: Respiratory Rate: Blood Pressure / Mean: Results/Orders My Orders Orders - MACARENA CLARKE MD Ketorolac Injection (Toradol Injection) (10/25/22 11:12) Orphenadrine Inj (Ed Only) (Norflex Inje (10/25/22 11:12) Promethazine Injection (Phenergan Injec (10/25/22 11:12) Diphenhydramine Tablet (Benadryl Tablet) (10/25/22 11:12) Vital Signs/I&O 10/25/22 10/25/22 11:05 11:33 Temp 36.2 36.2 Pulse 70 70 Resp 18 18 B/P (MAP) 121/70 (87) 121/70 Pulse Ox 100 100 O2 Delivery Room Air Room Air Capillary Refill : Progress Note : Progress Note As patient is having pain to the muscles of the abdominal wall and lower chest on the left side from vomiting and heaving hard but is unable to keep down her home medications despite Zofran ODT tablets will give her a shot of promethazine 25 mg IM for nausea and vomiting. In addition to this we will use Toradol 60 mg IM x1 for pain and inflammation, Norflex 60 mg IM x1 for muscle spasms and strain. By mouth will administer Benadryl 50 mg p.o. x1 to try and help with both her nausea as well as irritation to the abdominal wall from the recent skin tag removal. Counseled to continue taking her home medications. Try continued alternating ice and heat to the chest wall. Try to rest and stay well- hydrated. Check back with Dr. LACY's office for continued concerns and symptoms. She did not appear to have an infection at the site of the biopsy so she should not require any antibiotics. I did send a prescription for promethazine 25 mg p.o. tab every 6 hours prn Nausea and vomiting #12 so she had enough for 3 days. In addition I sent promethazine 25 mg suppository per rectum every 6 hours as needed nausea and vomiting #6 as a second line nausea medicine route Departure Impression Primary Impression: Nausea and vomiting in adult patient Additional Impressions: Strain of muscle and tendon of unspecified wall of thorax, initial encounter Pain, chronic postoperative Disposition: 01 HOME, SELF-CARE Condition: Stable Departure-Patient Inst. Decision time for Depature: 11:16 Referrals: TARUN LACY DO (PCP/Family) Primary Care Physician Patient Instructions: Nausea and Vomiting, Adult ED, Muscle Strain ED, Using Cold for Pain Add. Discharge Instructions: Continue to try alternating ice and heat to your chest wall to help with muscle strain and chest wall pain. Use the Promethazine (Phenergan) nausea medicine to help keep your stomach settled so you may continue to take your regular medicines. If you are not keeping the nausea pills down you have a few suppositories that were sent as well so you could take the medicine rectally as a suppository. Check back with Dr. Lacy's office for continued symptoms or more concerns. All discharge instructions reviewed with patient and/or family. Voiced understanding. Scripts Promethazine HCl (Promethazine Suppository) 25 Mg Supp.rect 25 MG RC Q6H PRN for NAUSEA-2ND LINE for 3 Days, #6 SUPP.RECT 0 Refills Prov: MACARENA CLARKE MD 10/25/22 Promethazine HCl (Promethazine Tablet) 25 Mg Tablet 25 MG PO Q6H PRN for NAUSEA/VOMITING for 3 Days, #12 TAB 0 Refills Prov: MACARENA CLARKE MD 10/25/22 MACARENA CLARKE MD Oct 25, 2022 11:21
[2022-10-25 11:33] VITALS: BP 121/70
== END 2022-10-25 11:33 | disposition home or self-care (01) ==
LOC: EDUNIT# 10:58 → ER FS 11:01
DX: S29.011A Strain of muscle and tendon of front wall of thorax, initial encounter (principal); G89.18 Other acute postprocedural pain; G89.29 Other chronic pain; R11.2 Nausea with vomiting, unspecified; F17.210 Nicotine dependence, cigarettes, uncomplicated; X58.XXXA Exposure to other specified factors, initial encounter
CPT/HCPCS: 99284

== ENCOUNTER → 2022-11-18 | Outpatient (CLI) | payer MEDICARE, MEDICAID ==
[~2022-11-18] MED LIST changes: -ORPH100T PO; +ORPH100T3 PO; +PROM25SU44 RC; +PROM25TA14 PO
[2022-11-18 08:13] LABS: BASOPHILS # (AUTO) 0.1 10^3/uL (0.0-0.1); BASOPHILS % (AUTO) 2 % (0-10); EOSINOPHILS # (AUTO) 0.3 10^3/uL (0.0-0.3); EOSINOPHILS % (AUTO) 3 % (0-10); HEMATOCRIT 40 % (35-52); HEMOGLOBIN 13.3 g/dL (11.5-16.0); LYMPHOCYTES # (AUTO) 2.8 10^3/uL (1.0-4.0); LYMPHOCYTES % (AUTO) 30 % (12-44); MEAN CORPUSCULAR HEMOGLOBIN 29 pg (25-34); MEAN CORPUSCULAR HGB CONC 34 g/dL (32-36); MEAN CORPUSCULAR VOLUME 86 fL (80-99); MEAN PLATELET VOLUME 10.4 fL (9.0-12.2); MONOCYTES # (AUTO) 0.7 10^3/uL (0.0-1.0); MONOCYTES % (AUTO) 7 % (0-12); NEUTROPHILS # (AUTO) 5.5 10^3/uL (1.8-7.8); NEUTROPHILS % (AUTO) 59 % (42-75); PLATELET COUNT 360 10^3/uL (130-400); WHITE BLOOD COUNT 9.3 10^3/uL (4.3-11.0)
[2022-11-18 09:20] LABS: BILIRUBIN,TOTAL 0.4 MG/DL (0.1-1.0); CALCIUM 10.1 MG/DL (8.5-10.1); CREATININE SERUM 0.92 MG/DL (0.60-1.30); POTASSIUM 3.9 MMOL/L (3.6-5.0); TOTAL PROTEIN 6.7 GM/DL (6.4-8.2)
[2022-11-18 09:21] LABS: ALBUMIN 4.2 GM/DL (3.2-4.5)
== END ==
LOC: LAB FS 07:54
PROVIDERS: ATTEND Nurse Practitioner Family
DX: E78.2 Mixed hyperlipidemia (principal); B18.2 Chronic viral hepatitis C
CPT/HCPCS: 36415; 80053; 80061; 85025

== ENCOUNTER 2023-01-12 18:16 | Emergency (ER) | payer MEDICARE, MEDICAID ==
[~2023-01-12] VITALS: Ht 163 cm; Wt 76.6 kg
[2023-01-12] MEDS ORDERED: morphine INJ 10 MG/ML 1ML (SYR OR VIAL) IM STA (18:48)
[2023-01-12] MEDS ORDERED: KETOROLAC 30 MG/ML VIAL IM STA (18:48)
--- NOTE | 2023-01-12 18:55 | ED EENT ---
History of Present Illness General Chief Complaint: Ear Problems Stated Complaint: R EAR PAIN/POST OP COMPLICATIONS Nursing Triage Note: PATIENT HAD EUESTACHIAN TUBE PLACED IN RIGHT EAR THIS AM AND STATES SHE CANNOT GET THE PAIN UNDER CONTROL. STATES SHE HAS TAKEN 3 BLOOD PRESSURE MEDICATIONS TODAY BECAUSE HER BLOOD PRESSURE HAS BEEN SO HIGH AT HOME. Source: patient History of Present Illness Date Seen by Provider: Jan 12, 2023 Time Seen by Provider: 18:22 Initial Comments 62-year-old female presenting with complaints of increased pain to her right ear since having tympanostomy tube placed earlier this morning in [place]. She has taken her home medications for pain as well as blood pressure but has not had significant improvement in her symptoms. She denies having fever or chills. She does have antibiotic drops that she is to put into her ear and to put through the tube in her ear. She has taken all of her allotted medicine for the day and does not have anything left to try and help with pain. She came to try and see if she can get some additional pain relief with injections. Previously she has had similar reaction after surgeries or procedures and required a dose of morphine and Toradol to help calm down inflammation and pain. She felt that her blood pressure was high as well but it is improving as she is resting and after taking her home blood pressure medications. She denies having nausea, chest pain, change in vision, shortness of breath, difficulty swallowing, vomiting. Timing/Duration: abrupt, this morning Severity: severe Location: ear (R) (Since having surgical procedure this morning) Prearrival Treatment: over the counter meds, prescription meds Modifying Factors: Worse With Activity Associated Symptoms: No cough, No drooling; ear drainage (Some bloody drainage after the procedure this morning); No facial pain/swelling, No fever, No malaise, No nasal congestion/drainage, No poor fluid intake, No poor solids intake, No sinus infection, No sore throat, No tooth pain, No voice change Allergies and Home Medications Allergies Coded Allergies: Penicillins (Verified Allergy, Unknown, 01/12/23) azithromycin (Verified Allergy, Unknown, 01/12/23) cefaclor (Verified Allergy, Unknown, 01/12/23) cephalexin (Verified Allergy, Unknown, 01/12/23) dexamethasone (Verified Allergy, Unknown, 01/12/23) erythromycin base (Verified Allergy, Unknown, 01/12/23) levofloxacin (Verified Allergy, Unknown, 01/12/23) methylprednisolone (Verified Allergy, Unknown, 01/12/23) tetracycline (Verified Allergy, Unknown, 01/12/23) Patient Home Medication List Home Medication List Reviewed: Yes Albuterol Sulfate (Ventolin Hfa) 1 Puff Puff, 2 PUFF IH Q4H Prescribed by: FREDRICK MOORE on 02/06/19 0303 Azithromycin (Zithromax) 250 Mg Tablet, 250 MG PO UD Prescribed by: FREDRICK LEOS on 08/30/19 1434 Clonazepam (Clonazepam) 0.5 Mg Tablet, (Reported) Entered as Reported by: RAMONA GARCIA on 04/22/17 1320 Dicyclomine HCl (Dicyclomine HCl) 20 Mg Tablet, 20 MG PO QID Prescribed by: BRAYAN GOVEA on 03/13/20 1906 Doxycycline Hyclate (Doxycycline Hyclate) 100 Mg Tablet, 100 MG PO BID Prescribed by: FREDRICK MOORE on 02/06/19 0306 Gabapentin (Gabapentin) 300 Mg Capsule, (Reported) Entered as Reported by: RAMONA GARCIA on 04/22/17 1320 Hydrocodone Bit/Acetaminophen (HYDROcodone/APAP 10/325 TABLET) 1 Each Tablet, (Reported) Entered as Reported by: RAMONA GARCIA on 04/22/17 1320 Hydrocodone/Acetaminophen (Hydrocodone-Acetamin 5-325 mg) 5 Mg-325 Mg Tablet, 1 TAB PO Q4H PRN for PAIN-MODERATE (5-7) Prescribed by: BRAYAN GOVEA on 06/14/22 1357 Lidocaine (Lidocaine 5% Patch) 1 Each Adh..patch, 1 EACH TP Q12H PRN for Neuropathic pain Prescribed by: BETY RICE on 08/23/21 0639 Methylprednisolone (Medrol Dose pack) 4 Mg Tab, 4 MG PO UD Prescribed by: BRAYAN GOVEA on 05/02/22 1149 Ondansetron (Ondansetron Odt) 4 Mg Tab.rapdis, 4 MG SL Q4H PRN for NAUSEA/VOMITING Prescribed by: BRAYAN GOVEA on 05/02/22 1149 Orphenadrine Citrate (Orphenadrine Citrate) 100 Mg Tablet.er, 100 MG PO BID Prescribed by: MACARENA CLARKE on 05/28/192207 Prednisone (Prednisone) 10 Mg Tab.ds.pk, 10 MG PO DAILY Prescribed by: FREDRICK MOORE on 02/06/19 030 Prednisone (Prednisone) 20 Mg Tab, 60 MG PO DAILY Prescribed by: FREDRICK LEOS on 08/30/19 1434 Promethazine HCl (Promethazine Tablet) 25 Mg Tablet, 25 MG PO Q6H PRN for NAUSEA/VOMITING Prescribed by: MACARENA CLARKE on 10/25/22 1119 Promethazine HCl (Promethazine Suppository) 25 Mg Supp.rect, 25 MG RC Q6H PRN for NAUSEA-2ND LINE Prescribed by: MACARENA CLARKE on 10/25/22 1119 Quetiapine Fumarate (Quetiapine Fumarate) 200 Mg Tablet, (Reported) Entered as Reported by: RAMONA GARCIA on 04/22/17 1320 Sertraline HCl (Sertraline HCl) 100 Mg Tablet, (Reported) Entered as Reported by: RAMONA GARCIA on 04/22/17 1320 Sulfamethoxazole/Trimethoprim (Bactrim Ds Tablet) 1 Each Tablet, 1 EACH PO BID Prescribed by: MACARENA CLARKE on 08/10/19 1929 Sulfamethoxazole/Trimethoprim (Sulfamethoxazole-Tmp Ss Tablet) 1 Each Tablet, 1 EACH PO BID Prescribed by: MACARENA CLARKE on 06/09/21 1620 Sulfamethoxazole/Trimethoprim (Bactrim Ds Tablet) 800 Mg-160 Mg Tablet, 1 EACH PO BID Prescribed by: MACARENA CLARKE on 08/20/22 1635 [Flexeril] , 10 twice a day Prescribed by: BRISEIDA WILL on 04/22/17 1511 Review of Systems Review of Systems Constitutional: No chills, No fever Eyes: No Symptoms Reported Ears: See HPI Nose: no symptoms reported Mouth: no symptoms reported Throat: no symptoms reported Respiratory: no symptoms reported Cardiovascular: no symptoms reported Gastrointestinal: no symptoms reported Musculoskeletal: no symptoms reported Past [id number]-[id number] Hx Patient Social History Tobacco Use?: Yes Tobacco type used: Cigarettes Smoking Status: Current Everyday Smoker Use of E-Cig and/or Vaping dev: Yes E-Cig or Vaping type used: CBD Use of E-Cig and/or Vaping Timothy: Current Everyday User Substance use?: No Alcohol Use?: No Immunizations Up To Date Influenza Vaccine Up-to-Date: No; Not Current First/Initial COVID19 Vaccinat: Denies Second COVID19 Vaccination Bandar: Denies Third COVID19 Vaccination Date: Denies Seasonal Allergies Seasonal Allergies: No Past Medical History Surgery/Hospitalization HX: HTN, high cholesterol, diverticulitis, anxiety Surgeries: Yes (BACK SX) Appendectomy, Brain Shunt, Hysterectomy, Orthopedic Respiratory: No (Tobaccoism) COPD Cardiac: Yes Heart Attack, Hypertension 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, has brain shunt) 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 oz. 77.792761tl; 28.00 BMI Method:Stated General Appearance: mild distress (Intermittently having distress with ear pain and holding her ear at times), other (Chronically ill-appearing) Eyes: bilateral eye PERRL, bilateral eye EOMI Ears: right ear foreign body (Tympanostomy tube that is black and present in the TM on the right side. There is no blood or drainage noted); bilateral ear auricle normal, bilateral ear canal normal Neck: full range of motion, supple, tender lateral (Tender to the right lateral aspect of her neck palpation) Cardiovascular: normal peripheral pulses Neurologic/Psychiatric: alert, oriented x 3 Skin: normal color, warm/dry Progress/Results/Core Measures Results/Orders My Orders Orders - MACARENA CLARKE MD Morphine Injection (Morphine Injection (01/12/23 18:48) Ketorolac Injection (Toradol Injection) (01/12/23 18:48) Rx-Oxycodone/Apap 5-325 Mg (Rx-Percocet (01/12/23 19:00) Medications Given in ED Current Medications Medications Dose Ordered Sig/Sandra Route Start Time Stop Time Status Last Admin Dose Admin Oxycodone/ Acetaminophen 1 ea Q6HR PRN PO 01/12/23 19:00 01/12/23 19:05 DC 01/12/23 19:04 1 EA Vital Signs/I&O 01/12/23 01/12/23 18:20 18:59 Temp 35.7 35.7 Pulse 54 54 Resp 16 16 B/P (MAP) 141/100 (114) 141/100 Pulse Ox 99 99 O2 Delivery Room Air Room Air Blood Pressure Mean: 114 Progress Progress Note #1: Progress Note From review of previous notes and visits she has had prior injections of morphine and/or fentanyl as well as Toradol to try and help with pain flareups. As she does not have any signs of acute infection and is already on antibiotic eardrops from the procedure this morning this is likely related to the surgical procedure and just a matter of trying to get her pain back under control. Will administer a dose of morphine 10 mg IM x1 and ketorolac 30 mg IM x1 to help with inflammation and pain. Encouraged to continue with hydration and rest at home. Try to keep head elevated to limit swelling and pain. Check back with the clinic for continued pain control and other concerns. Prior to administering the morphine and Toradol her blood pressure did come down to 122/78. Progress Note #2: Time: 19:00 Progress Note Patient had requested a take-home pack of Percocet in case she needed something more for pain overnight. She also requested clarification of the dosing on the ofloxacin otic drops. She states that did not stay on the paperwork about how many drops or how often. From review of this general prescribing for ofloxacin usually for an adult to be 10 drops once or twice a day. I recommended she do at least 10 drops once a day and check with the doctor or on the prescription. I put in for take him Percocet 5/325 mg pills 1 every 6 hours as needed severe pain #4 to send with the patient since the pharmacies were closed currently. Departure Impression Primary Impression: Acute pain of right ear Additional Impressions: Post-operative pain Hypertension Qualified Codes: I10 - Essential (primary) hypertension Disposition: 01 HOME, SELF-CARE Condition: Stable Departure-Patient Inst. Decision time for Depature: 18:54 Referrals: TARUN LACY DO (PCP/Family) Primary Care Physician Patient Instructions: Ear Pain ED, High Blood Pressure ED Add. Discharge Instructions: Continue taking your home medications to help treat for pain and help prevent infection with the antibiotic eardrops. Follow-up with the clinic for continued pain control if needed. Hopefully with the injections this evening we can get back on top of your pain to make it tolerable by continuing her home medications. Try to sleep with your head elevated or propped up to allow gravity to help with any swelling and drainage so you do not have increased swelling and pain if you are laying more flat. All discharge instructions reviewed with patient and/or family. Voiced understanding. MACARENA CLARKE MD Jan 12, 2023 18:55
[2023-01-12 18:59] VITALS: BP 141/100
[2023-01-12] MEDS ORDERED: RX-OXYCODONE/APAP 5-325 MG #4 TAB PK PO PRN (19:00)
== END 2023-01-12 19:04 | disposition home or self-care (01) ==
LOC: EDUNIT# 18:16 → ER FS 18:18
DX: G89.18 Other acute postprocedural pain (principal); H92.01 Otalgia, right ear; I10 Essential (primary) hypertension; F17.210 Nicotine dependence, cigarettes, uncomplicated; F17.290 Nicotine dependence, other tobacco product, uncomplicated; Z96.22 Myringotomy tube(s) status; Z28.310 Unvaccinated for COVID-19; Z88.0 Allergy status to penicillin; Z88.1 Allergy status to other antibiotic agents
CPT/HCPCS: 99284

== ENCOUNTER 2023-03-17 10:30 | Emergency (ER) | payer MEDICARE, MEDICAID ==
[~2023-03-17] VITALS: Ht 162 cm; Wt 73.0 kg
[2023-03-17] MEDS ORDERED: NS IV 1000 ML 1,000 ML IV STA (11:04)
[2023-03-17] MEDS ORDERED: KETOROLAC INJ 15 MG/ML VIAL IVP STA (11:04)
[2023-03-17 11:12] LABS: BASOPHILS # (AUTO) 0.1 10^3/uL (0.0-0.1); BASOPHILS % (AUTO) 1 % (0-10); EOSINOPHILS # (AUTO) 0.2 10^3/uL (0.0-0.3); EOSINOPHILS % (AUTO) 1 % (0-10); HEMATOCRIT 38 % (35-52); HEMOGLOBIN 12.7 g/dL (11.5-16.0); LYMPHOCYTES # (AUTO) 2.3 10^3/uL (1.0-4.0); LYMPHOCYTES % (AUTO) 17 % (12-44); MEAN CORPUSCULAR HEMOGLOBIN 29 pg (25-34); MEAN CORPUSCULAR HGB CONC 34 g/dL (32-36); MEAN CORPUSCULAR VOLUME 86 fL (80-99); MEAN PLATELET VOLUME 10.3 fL (9.0-12.2); MONOCYTES # (AUTO) 0.6 10^3/uL (0.0-1.0); MONOCYTES % (AUTO) 4 % (0-12); NEUTROPHILS # (AUTO) 10.4 10^3/uL (1.8-7.8); NEUTROPHILS % (AUTO) 77 % (42-75); PLATELET COUNT 362 10^3/uL (130-400); WHITE BLOOD COUNT 13.5 10^3/uL (4.3-11.0)
[2023-03-17] MEDS ORDERED: IOHEXOL 350 MG/ML 100 ML (OMNIPAQUE 350) VIAL IV ONE (11:15)
[2023-03-17] MEDS ORDERED: NS 100 ML (IVPB) BAG IV ONE (11:15)
[2023-03-17] MEDS ORDERED: HOLD METFORMIN - RECEIVED CONTRAST 20 ML VIAL IV SCH (11:15)
[2023-03-17 11:32] LABS: POTASSIUM 3.9 MMOL/L (3.6-5.0)
[2023-03-17 11:33] LABS: ALBUMIN 4.3 GM/DL (3.2-4.5); BILIRUBIN,TOTAL 0.3 MG/DL (0.1-1.0); CALCIUM 10.6 MG/DL (8.5-10.1); CREATININE SERUM 0.71 MG/DL (0.60-1.30); TOTAL PROTEIN 6.2 GM/DL (6.4-8.2)
--- NOTE | 2023-03-17 11:38 | ED Abdominal Pain ---
General Chief Complaint: Abdominal/GI Problems Stated Complaint: ELEV BP Nursing Triage Note: PT REPORTS HER BLOOD PRESSURE WAS 160/90 AT HOME AND SHE STATES EVERY MORNING AT 0300 HER STOMACH STARTS CRAMPING BECAUSE SHE HAS DIVERTICULOSIS AND IT IS RELIEVED AFTER SHE HAS A BOWEL MOVEMENT BUT THIS AM ITS STILL CRAMPING. SHE TOOK ONE OF HER MOMS "PAIN PILLS" ABOUT 0400 THIS AM. Source of Information: Patient History of Present Illness Date Seen by Provider: Mar 17, 2023 Time Seen by Provider: 10:39 Initial Comments 63-year-old female presenting with complaints of having high blood pressure and left sided abdominal and flank pain. She feels like the abdominal pain is from her diverticulosis. She usually is able to get the pain to go away with a bowel movement that did not help today. She felt like her pressure was too high and was making her feel bad as well. She denies any nausea, vomiting, blood in her urine, blood in her stools. Allergies and Home Medications Allergies Coded Allergies: Penicillins (Verified Allergy, Unknown, 01/12/23) azithromycin (Verified Allergy, Unknown, 01/12/23) cefaclor (Verified Allergy, Unknown, 01/12/23) cephalexin (Verified Allergy, Unknown, 01/12/23) dexamethasone (Verified Allergy, Unknown, 01/12/23) erythromycin base (Verified Allergy, Unknown, 01/12/23) levofloxacin (Verified Allergy, Unknown, 01/12/23) methylprednisolone (Verified Allergy, Unknown, 01/12/23) tetracycline (Verified Allergy, Unknown, 01/12/23) Patient Home Medication List Home Medication List Reviewed: Yes Albuterol Sulfate (Ventolin Hfa) 1 Puff Puff, 2 PUFF IH Q4H Prescribed by: FREDRICK MOORE on 02/06/19 0303 Azithromycin (Zithromax) 250 Mg Tablet, 250 MG PO UD Prescribed by: FREDRICK LEOS on 08/30/19 1434 Clonazepam (Clonazepam) 0.5 Mg Tablet, (Reported) Entered as Reported by: RAMONA GARCIA on 04/22/17 1320 Dicyclomine HCl (Dicyclomine HCl) 20 Mg Tablet, 20 MG PO QID Prescribed by: BRAYAN GOVEA on 03/13/20 1906 Doxycycline Hyclate (Doxycycline Hyclate) 100 Mg Tablet, 100 MG PO BID Prescribed by: FREDRICK MOORE on 02/06/19 0306 Gabapentin (Gabapentin) 300 Mg Capsule, (Reported) Entered as Reported by: RAMONA GARCIA on 04/22/17 1320 Hydrocodone Bit/Acetaminophen (HYDROcodone/APAP 10/325 TABLET) 1 Each Tablet, (Reported) Entered as Reported by: RAMONA GARCIA on 04/22/17 1320 Hydrocodone/Acetaminophen (Hydrocodone-Acetamin 5-325 mg) 5 Mg-325 Mg Tablet, 1 TAB PO Q4H PRN for PAIN-MODERATE (5-7) Prescribed by: BRAYAN GOVEA on 06/14/22 1357 Hydrocodone/Acetaminophen (Hydrocodone-Acetamin 5-325 mg) 5 Mg-325 Mg Tablet, 1 TAB PO Q4H PRN for PAIN SEVERE Prescribed by: MACARENA CLARKE on 03/17/23 1249 Lidocaine (Lidocaine 5% Patch) 1 Each Adh..patch, 1 EACH TP Q12H PRN for Neuropathic pain Prescribed by: BETY RICE on 08/23/21 0639 Methylprednisolone (Medrol Dose pack) 4 Mg Tab, 4 MG PO UD Prescribed by: BRAYAN GOVEA on 05/02/22 1149 Ondansetron (Ondansetron Odt) 4 Mg Tab.rapdis, 4 MG SL Q4H PRN for NAUSEA/VOMITING Prescribed by: BRAYAN GOVEA on 05/02/22 1149 Orphenadrine Citrate (Orphenadrine Citrate) 100 Mg Tablet.er, 100 MG PO BID Prescribed by: MACARENA CLARKE on 05/28/19 2208 Prednisone (Prednisone) 10 Mg Tab.ds.pk, 10 MG PO DAILY Prescribed by: FREDRICK MOORE on 02/06/19 030 Prednisone (Prednisone) 20 Mg Tab, 60 MG PO DAILY Prescribed by: FREDRICK LEOS on 08/30/19 1434 Promethazine HCl (Promethazine Tablet) 25 Mg Tablet, 25 MG PO Q6H PRN for NAUSEA/VOMITING Prescribed by: MACARENA SOLARESRT on 10/25/22 1119 Promethazine HCl (Promethazine Suppository) 25 Mg Supp.rect, 25 MG RC Q6H PRN for NAUSEA-2ND LINE Prescribed by: MACARENA CLARKE on 10/25/22 1119 Quetiapine Fumarate (Quetiapine Fumarate) 200 Mg Tablet, (Reported) Entered as Reported by: RAMONA GARCIA on 04/22/17 1320 Sertraline HCl (Sertraline HCl) 100 Mg Tablet, (Reported) Entered as Reported by: RAMONA GARCIA on 04/22/17 1320 Sulfamethoxazole/Trimethoprim (Bactrim Ds Tablet) 1 Each Tablet, 1 EACH PO BID Prescribed by: MACARENA CLARKE on 08/10/19 1929 Sulfamethoxazole/Trimethoprim (Sulfamethoxazole-Tmp Ss Tablet) 1 Each Tablet, 1 EACH PO BID Prescribed by: MACARENA CLARKE on 06/09/21 1620 Sulfamethoxazole/Trimethoprim (Bactrim Ds Tablet) 800 Mg-160 Mg Tablet, 1 EACH PO BID Prescribed by: MACARENA CLARKE on 08/20/22 1635 [Flexeril] , 10 twice a day Prescribed by: BRISEIDA WILL on 04/22/17 1511 Review of Systems Review of Systems Constitutional: No chills, No fever EENTM: No Symptoms Reported Respiratory: No Symptoms Reported Cardiovascular: No Symptoms Reported Gastrointestinal: See HPI Genitourinary: Denies Pain Musculoskeletal: no symptoms reported Skin: no symptoms reported Psychiatric/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: No Symptoms Reported Past [id number]-Pzqlwv Hx Patient Social History Tobacco Use?: Yes Tobacco type used: Cigarettes Smoking Status: Current Everyday Smoker Use of E-Cig and/or Vaping dev: No Substance use?: Yes Substance type: Marijuana Substance frequency: Daily Alcohol Use?: No Pt feels they are or have been: No Immunizations Up To Date First/Initial COVID19 Vaccinat: Denies Second COVID19 Vaccination Bandar: Denies Third COVID19 Vaccination Date: Denies Seasonal Allergies Seasonal Allergies: No Past Medical History Surgery/Hospitalization HX: DIVERTICULITIS Surgeries: Yes (BACK SX) Appendectomy, Brain Shunt, Hysterectomy, Orthopedic Respiratory: No (Tobaccoism) COPD Cardiac: Yes Heart Attack, Hypertension 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, has 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 Genitourinary: No Gastrointestinal: Yes (Hep C history ") Gastroesophageal Reflux, Diverticulosis, Hepatitis Musculoskeletal: Yes (Chronic pain- Buprenorphine) Arthritis, Chronic Back Pain Endocrine: No HEENT: No Cancer: No Psychosocial: Yes Anxiety, Bipolar, Depression Integumentary: No Blood Disorders: No Adverse Reaction/Blood Tranf: No Family Medical History No Pertinent Family Hx Physical Exam Vital Signs Vital Signs - First Documented 03/17/23 10:40 Temp 36.1 Pulse 52 Resp 16 B/P (MAP) 151/85 (107) Pulse Ox 99 O2 Delivery Room Air Capillary Refill : Less Than 3 Seconds Height/Weight/BMI Height: 5'4.00" Weight: 170lbs. oz. 77.932243on; 27.00 BMI Method:Stated General Appearance: WD/WN, no apparent distress HEENT: PERRL/EOMI, pharynx normal Respiratory: chest non-tender, lungs clear, normal breath sounds Cardiovascular: normal peripheral pulses, regular rate, rhythm Gastrointestinal: normal bowel sounds, soft, no pulsatile mass; No distended, No guarding, No rebound; tenderness (left flank and LLQ) Rectal: deferred Back: no CVA tenderness Neurologic/Psychiatric: alert, oriented x 3 Skin: normal color, warm/dry Progress/Results/Core Measures Results/Orders Lab Results Laboratory Tests Test 03/17/23 11:04 Range/Units White Blood Count 13.5 H 4.3-11.0 10^3/uL Red Blood Count 4.34 3.80-5.11 10^6/uL Hemoglobin 12.7 11.5-16.0 g/dL Hematocrit 38 35-52 % Mean Corpuscular Volume 86 80-99 fL Mean Corpuscular Hemoglobin 29 25-34 pg Mean Corpuscular Hemoglobin Concent 34 32-36 g/dL Red Cell Distribution Width 14.5 10.0-14.5 % Platelet Count 362 130-400 10^3/uL Mean Platelet Volume 10.3 9.0-12.2 fL Immature Granulocyte % (Auto) 0 % Neutrophils (%) (Auto) 77 H 42-75 % Lymphocytes (%) (Auto) 17 12-44 % Monocytes (%) (Auto) 4 0-12 % Eosinophils (%) (Auto) 1 0-10 % Basophils (%) (Auto) 1 0-10 % Neutrophils # (Auto) 10.4 H 1.8-7.8 10^3/uL Lymphocytes # (Auto) 2.3 1.0-4.0 10^3/uL Monocytes # (Auto) 0.6 0.0-1.0 10^3/uL Eosinophils # (Auto) 0.2 0.0-0.3 10^3/uL Basophils # (Auto) 0.1 0.0-0.1 10^3/uL Immature Granulocyte # (Auto) 0.0 0.0-0.1 10^3/uL Sodium Level 141 135-145 MMOL/L Potassium Level 3.9 3.6-5.0 MMOL/L Chloride Level 106 98-107 MMOL/L Carbon Dioxide Level 24 21-32 MMOL/L Anion Gap 11 5-14 MMOL/L Blood Urea Nitrogen 14 7-18 MG/DL Creatinine 0.71 0.60-1.30 MG/DL Estimat Glomerular Filtration Rate 95 BUN/Creatinine Ratio 20 Glucose Level 112 H 70-105 MG/DL Calcium Level 10.6 H 8.5-10.1 MG/DL Corrected Calcium 10.4 H 8.5-10.1 MG/DL Total Bilirubin 0.3 0.1-1.0 MG/DL Aspartate Amino Transf (AST/SGOT) 20 5-34 U/L Alanine Aminotransferase (ALT/SGPT) 14 0-55 U/L Alkaline Phosphatase 66 40-136 U/L Total Protein 6.2 L 6.4-8.2 GM/DL Albumin 4.3 3.2-4.5 GM/DL Lipase 26 8-78 U/L My Orders Orders - MACARENA CLARKE MD Comprehensive Metabolic Panel (03/17/23 11:04) Lipase (03/17/23 11:04) Ed Iv/Invasive Line Start (03/17/23 11:04) Cbc With Automated Diff (03/17/23 11:04) Ct Abdomen/Pelvis W (03/17/23 11:04) Ns Iv 1000 Ml (Ns Iv 1000 Ml) (03/17/23 11:04) Ketorolac Injection (Ketorolac Injection (03/17/23 11:04) Iohexol Injection (Omnipaque 350 Mg/Ml 1 (03/17/23 11:15) Received Contrast (Hold Metformin- Contr (03/17/23 11:15) Ns (Ivpb) 100 Ml (Sodium Chloride 0.9% 1 (03/17/23 11:15) Medications Given in ED Current Medications Medications Dose Ordered Sig/Sandra Route Start Time Stop Time Status Last Admin Dose Admin Iohexol 100 ml ONCE ONCE IV 03/17/23 11:15 03/17/23 11:16 DC 03/17/23 11:45 80 ML Sodium Chloride 100 ml ONCE ONCE IV 03/17/23 11:15 03/17/23 11:16 DC 03/17/23 11:45 80 ML Vital Signs/I&O 03/17/23 03/17/23 10:40 12:24 Temp 36.1 36.1 Pulse 52 60 Resp 16 16 B/P (MAP) 151/85 (107) 137/67 Pulse Ox 99 99 O2 Delivery Room Air Room Air Blood Pressure Mean: 107 Progress Progress Note #1: Progress Note Differential diagnosis includes diverticulitis, colitis, cystitis, pancreatitis, constipation, musculoskeletal pain. Establish peripheral IV access and send labs for complete blood count, comprehensive metabolic profile, lipase. Urinalysis to look for signs of infection or blood. CT scan of the abdomen and pelvis with IV contrast to look for pathology in the left flank causing pain. Try dose of Toradol 15 mg IV for pain since patient drove herself. Progress Note #2: Progress Note Complete blood count had white blood cell count at upper limit of normal at 13.5 thousand. Hemoglobin low normal at 12.7. Comprehensive metabolic profile did not show any acute electrolyte abnormality to account for her flank pain. Her lipase was normal at 26. CT scan of the abdomen and pelvis with IV contrast shows a chronic cyst in the pancreas but no signs of pathology in the left flank to account for her pain. Patient reports that her pain was not improved with the Toradol however since she was being discharged and we did not see signs of an abscess or infection that required antibiotics she opted to try and wait and take pain medicine at home rather than get a pain shot here and then not be able to drive for herself and her mom home. Counseled to follow-up with primary care provider and continue to work with them about pain. Her elevated blood pressure from earlier today was likely secondary to pain. On arrival here to the ED pressure was about 151/80. Diagnostic Imaging Diagonstic Imaging: CT Plain Films/CT/US/NM/MRI: abdomen, pelvis Comments [facility]. [place], [place] NAME: RONEL UMAÑA [facility] REC#: [id number] PT STATUS: REG ER : 1960 PHYSICIAN: MACARENA CLARKE MD ADMIT DATE: 03/17/23/ER FS Draft Date of Exam:03/17/23 CT ABDOMEN/PELVIS W EXAMINATION: CT abdomen and pelvis with intravenous contrast. TECHNIQUE: Multiple contiguous axial images were obtained through the abdomen and pelvis after the uneventful administration of intravenous contrast. All CT scans use one or more of the following dose optimizing techniques: automated exposure control, MA and/or KvP adjustment based on patient size and exam type or iterative reconstruction. HISTORY: Left flank pain COMPARISON: 12/18/2021 FINDINGS: Limited views of the lower thorax are unremarkable. The liver is normal without focal lesion. There is no biliary ductal dilation. Gallbladder is normal. There is an unchanged 2.0 cm cyst in the tail of the pancreas. Spleen is normal. 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 Simple cyst is present in left kidney. No suspicious renal lesion. There is no hydronephrosis. Urinary bladder is normal. Bowel is normal in caliber without obstruction or inflammation. No free fluid or air. No abdominal or pelvic lymphadenopathy. Aorta is normal in caliber without aneurysm. There are no suspicious osseus lesions. There has been a lumbar spine fusion. L3 and L2 compression fractures are unchanged. IMPRESSION: 1. Unchanged cyst in the tail of the pancreas. No acute abnormality. Dictated on workstation # [id number] Dict: 03/17/23 1157 Trans: 03/17/23 1200 CV [id number] Interpreted by: RICHARD KENT MD Electronically signed by: Departure Impression Primary Impression: Acute left flank pain Additional Impression: Hypertension Qualified Codes: I10 - Essential (primary) hypertension Disposition: HOME, SELF-CARE Condition: Stable Departure-Patient Inst. Decision time for Depature: 12:44 Referrals: TARUN LACY DO (PCP/Family) Primary Care Physician Patient Instructions: Flank Pain ED, High Blood Pressure ED, Opioid medicines for short-term treatment of pain, DASH Diet Add. Discharge Instructions: Take the pain medicine for severe pain Take the stool softeners to keep your stools soft and regular. Check with Dr. Lacy for continued problems with blood pressure and with flank/abdominal pain All discharge instructions reviewed with patient and/or family. Voiced understanding. Scripts Hydrocodone/Acetaminophen (Hydrocodone-Acetamin 5-325 mg) 5 Mg-325 Mg Tablet 1 TAB PO Q4H PRN for PAIN SEVERE for 3 Days, #18 TAB 0 Refills Prov: MACARENA CLARKE MD 03/17/23 MACARENA CLARKE MD Mar 17, 2023 11:38
--- NOTE | 2023-03-17 12:00 | Diagnostic Imaging Report ---
EXAMINATION: CT abdomen and pelvis with intravenous contrast. TECHNIQUE: Multiple contiguous axial images were obtained through the abdomen and pelvis after the uneventful administration of intravenous contrast. All CT scans use one or more of the following dose optimizing techniques: automated exposure control, MA and/or KvP adjustment based on patient size and exam type or iterative reconstruction. HISTORY: Left flank pain COMPARISON: 12/18/2021 FINDINGS: Limited views of the lower thorax are unremarkable. The liver is normal without focal lesion. There is no biliary ductal dilation. Gallbladder is normal. There is an unchanged 2.0 cm cyst in the tail of the pancreas. Spleen is normal. 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 Simple cyst is present in left kidney. No suspicious renal lesion. There is no hydronephrosis. Urinary bladder is normal. Bowel is normal in caliber without obstruction or inflammation. No free fluid or air. No abdominal or pelvic lymphadenopathy. Aorta is normal in caliber without aneurysm. There are no suspicious osseus lesions. There has been a lumbar spine fusion. L3 and L2 compression fractures are unchanged. IMPRESSION: 1. Unchanged cyst in the tail of the pancreas. No acute abnormality. Dictated by: Dictated on workstation # [id number]
[2023-03-17 12:24] VITALS: BP 137/67
[2023-03-17] MEDS ORDERED: ACHD5005 PO (12:46)
== END 2023-03-17 12:58 | disposition home or self-care (01) ==
LOC: EDUNIT# 10:30 → ER FS 10:32
DX: I10 Essential (primary) hypertension (principal); R10.32 Left lower quadrant pain; F17.210 Nicotine dependence, cigarettes, uncomplicated; Z28.310 Unvaccinated for COVID-19
CPT/HCPCS: 36415; 74177; 80053; 83690; 85025; Q9967

== ENCOUNTER 2023-03-27 16:04 | Emergency (ER) | payer MEDICARE, MEDICAID ==
--- NOTE | 2023-03-27 16:25 | ED Back Pain ---
General Chief Complaint: Back Problems Stated Complaint: BACK SPASMS Nursing Triage Note: PT REPORTS SHE IS HAVING BACK SPASMS. SHE HAS TAKEN 4 GABAPENTIN TODAY FOR THE PAIN AND HAS RAN OUT OF THE HYDROCODONE THAT WAS PRESCRIBED 03/18/23. Source of Information: Patient Exam Limitations: No Limitations History of Present Illness Date Seen by Provider: Mar 27, 2023 Time Seen by Provider: 16:05 Initial Comments 63-year-old female with chronic back pain coming in due to back pain. Is been going on for years, worsening over the past couple weeks. She was seen in the ER here [address] imaging which was unremarkable. Was prescribed hydrocodone that day as well as the next day. She is requesting a pain shot and prescription for potentially hydrocodone 10 mg. She is denying any weakness, numbness, bowel or bladder issue, or any other concerns. Allergies and Home Medications Allergies Coded Allergies: Penicillins (Verified Allergy, Unknown, 01/12/23) azithromycin (Verified Allergy, Unknown, 01/12/23) cefaclor (Verified Allergy, Unknown, 01/12/23) cephalexin (Verified Allergy, Unknown, 01/12/23) dexamethasone (Verified Allergy, Unknown, 01/12/23) erythromycin base (Verified Allergy, Unknown, 01/12/23) levofloxacin (Verified Allergy, Unknown, 01/12/23) methylprednisolone (Verified Allergy, Unknown, 01/12/23) tetracycline (Verified Allergy, Unknown, 01/12/23) Patient Home Medication List Home Medication List Reviewed: Yes Albuterol Sulfate (Ventolin Hfa) 1 Puff Puff, 2 PUFF IH Q4H Prescribed by: FREDRICK MOORE on 02/06/19 0303 Azithromycin (Zithromax) 250 Mg Tablet, 250 MG PO UD Prescribed by: FREDRICK LEOS on 08/30/19 1434 Clonazepam (Clonazepam) 0.5 Mg Tablet, (Reported) Entered as Reported by: RAMONA GARCIA on 04/22/17 1320 Dicyclomine HCl (Dicyclomine HCl) 20 Mg Tablet, 20 MG PO QID Prescribed by: BRAYAN GOVEA on 03/13/20 1906 Doxycycline Hyclate (Doxycycline Hyclate) 100 Mg Tablet, 100 MG PO BID Prescribed by: FREDRICK MOORE on 02/06/19 0306 Gabapentin (Gabapentin) 300 Mg Capsule, (Reported) Entered as Reported by: RAMONA GARCIA on 04/22/17 1320 Hydrocodone Bit/Acetaminophen (HYDROcodone/APAP 10/325 TABLET) 1 Each Tablet, (Reported) Entered as Reported by: RAMONA GARCIA on 04/22/17 1320 Hydrocodone/Acetaminophen (Hydrocodone-Acetamin 5-325 mg) 5 Mg-325 Mg Tablet, 1 TAB PO Q4H PRN for PAIN-MODERATE (5-7) Prescribed by: BRAYAN GOVEA on 06/14/22 1357 Hydrocodone/Acetaminophen (Hydrocodone-Acetamin 5-325 mg) 5 Mg-325 Mg Tablet, 1 TAB PO Q4H PRN for PAIN SEVERE Prescribed by: MACARENA CLARKE on 03/17/23 1249 Lidocaine (Lidocaine 5% Patch) 1 Each Adh..patch, 1 EACH TP Q12H PRN for Neuropathic pain Prescribed by: BETY RICE on 08/23/21 0639 Methylprednisolone (Medrol Dose pack) 4 Mg Tab, 4 MG PO UD Prescribed by: BRAYAN GOVEA on 05/02/22 1149 Ondansetron (Ondansetron Odt) 4 Mg Tab.rapdis, 4 MG SL Q4H PRN for NAUSEA/VOMITING Prescribed by: BRAYAN GOVEA on 05/02/22 1149 Orphenadrine Citrate (Orphenadrine Citrate) 100 Mg Tablet.er, 100 MG PO BID Prescribed by: MACARENA CLARKE on 05/28/19 2208 Prednisone (Prednisone) 10 Mg Tab.ds.pk, 10 MG PO DAILY Prescribed by: FREDRICK MOORE on 02/06/19 0302 Prednisone (Prednisone) 20 Mg Tab, 60 MG PO DAILY Prescribed by: FREDRICK LEOS on 08/30/19 1434 Promethazine HCl (Promethazine Tablet) 25 Mg Tablet, 25 MG PO Q6H PRN for NAUSEA/VOMITING Prescribed by: MACARENA CLARKE on 10/25/22 1119 Promethazine HCl (Promethazine Suppository) 25 Mg Supp.rect, 25 MG RC Q6H PRN for NAUSEA-2ND LINE Prescribed by: MACARENA CLARKE on 10/25/22 1119 Quetiapine Fumarate (Quetiapine Fumarate) 200 Mg Tablet, (Reported) Entered as Reported by: RAMONA GARCIA on 04/22/17 1320 Sertraline HCl (Sertraline HCl) 100 Mg Tablet, (Reported) Entered as Reported by: RAMONA GARCIA on 04/22/17 1320 Sulfamethoxazole/Trimethoprim (Bactrim Ds Tablet) 1 Each Tablet, 1 EACH PO BID Prescribed by: MACARENA CLARKE on 08/10/19 1929 Sulfamethoxazole/Trimethoprim (Sulfamethoxazole-Tmp Ss Tablet) 1 Each Tablet, 1 EACH PO BID Prescribed by: MACARENA CLARKE on 06/09/21 1620 Sulfamethoxazole/Trimethoprim (Bactrim Ds Tablet) 800 Mg-160 Mg Tablet, 1 EACH PO BID Prescribed by: MACARENA CLARKE on 08/20/22 1635 [Flexeril] , 10 twice a day Prescribed by: BRISEIDA WILL on 04/22/17 1511 Review of Systems Constitutional: No fever EENTM: no symptoms reported Respiratory: no symptoms reported Cardiovascular: no symptoms reported Gastrointestinal: no symptoms reported Genitourinary: no symptoms reported Musculoskeletal: see HPI Skin: no symptoms reported Psychiatric/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: No Symptoms Reported Past Djshxhc-Wspiaw-Jlyvnr Hx Patient Social History Tobacco Use?: Yes Tobacco type used: Cigarettes Smoking Status: Current Everyday Smoker Use of E-Cig and/or Vaping dev: No Substance use?: Yes Substance type: Marijuana Substance frequency: Daily Alcohol Use?: No Pt feels they are or have been: No Immunizations Up To Date Influenza Vaccine Up-to-Date: No; Not Current First/Initial COVID19 Vaccinat: Denies Second COVID19 Vaccination Bandar: Denies Third COVID19 Vaccination Date: Denies Seasonal Allergies Seasonal Allergies: No Past Medical History Surgery/Hospitalization HX: DIVERTICULITIS Surgeries: Yes (BACK SX) Appendectomy, Brain Shunt, Hysterectomy, Orthopedic Respiratory: No (Tobaccoism) COPD Cardiac: Yes Heart Attack, Hypertension 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, has 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 Genitourinary: No Gastrointestinal: Yes (Hep C history ") Gastroesophageal Reflux, Diverticulosis, Hepatitis Musculoskeletal: Yes (Chronic pain- Buprenorphine) Arthritis, Chronic Back Pain Endocrine: No HEENT: No Cancer: No Psychosocial: Yes Anxiety, Bipolar, Depression Integumentary: No Blood Disorders: No Adverse Reaction/Blood Tranf: No Family Medical History No Pertinent Family Hx Physical Exam Vital Signs Vital Signs - First Documented 03/27/23 16:10 Temp 36.0 Pulse 74 Resp 16 B/P (MAP) 115/89 (98) Pulse Ox 99 O2 Delivery Room Air Capillary Refill : Less Than 3 Seconds Height, Weight, BMI Height: 5'4.00" Weight: 170lbs. oz. 77.245479qh; 27.00 BMI Method:Stated General Appearance: No Apparent Distress, WD/WN HEENT: PERRL/EOMI, Normal ENT Inspection, Pharynx Normal Neck: Full Range of Motion, Normal Inspection, Non Tender, Supple Cardiovascular: Regular Rate, Rhythm, No Edema, Normal Peripheral Pulses Respiratory: Chest Non Tender, Lungs Clear, Normal Breath Sounds, No Accessory Muscle Use, No Respiratory Distress Gastrointestinal: Normal Bowel Sounds, Non Tender, Soft Back: Normal Inspection, No CVA Tenderness, No Vertebral Tenderness, Muscle Spasm (Right lower back, pain worsening with any type of twisting motion) Extremity: Normal Capillary Refill, Normal Inspection, Normal Range of Motion, Non Tender, No Calf Tenderness Neurologic/Psychiatric: Alert, No Motor/Sensory Deficits, Normal Mood/Affect, Other (Normal gait) Skin: Normal Color, Warm/Dry Progress/Results/Core Measures Results/Orders My Orders Orders - BETY RICE MD Hydrocodone/Apap 5/325 Tablet (Hydrocod (03/27/23 16:30) Orphenadrine Inj (Ed Only) (Orphenadrine (03/27/23 16:30) Vital Signs/I&O 03/27/23 16:10 Temp 36.0 Pulse 74 Resp 16 B/P (MAP) 115/89 (98) Pulse Ox 99 O2 Delivery Room Air Blood Pressure Mean: 98 Progress Progress Note : Progress Note 63-year-old female coming in due to lower back spasms. ABCs were intact and vitals were stable on presentation. Physical exam with muscular tenderness in the right lower back which is worsened with twisting. She is neurovascularly intact and has no red flags. I reviewed the CT imaging from 10 days ago of her abdomen and pelvis which include her spine in the windows and was negative for acute findings. She has not had any new trauma or concerns that would require new imaging today. I will give her a single hydrocodone here as well as a Norfl ex shot. I offered multiple options as far as prescriptions including lidocaine patches, muscle relaxers, meloxicam, however the patient refused all of these options. I discussed that if she wants a prescription for hydrocodone, she needs to go through her PCP. Departure Impression Primary Impression: Back spasm Disposition: 01 HOME, SELF-CARE Condition: Stable Departure-Patient Inst. Decision time for Depature: 16:30 Referrals: TARUN LACY DO (PCP/Family) Primary Care Physician Patient Instructions: Muscle Spasms (DC) Add. Discharge Instructions: We recommend doing physical therapy and doing things such as massage. Continue to take the ibuprofen and or Tylenol as needed for pain. You can also try heating pad. You can also try [id number] lidocaine patches. Follow-up with your regular doctor if you are seeking a prescription for hydrocodone or another type of narcotic. Unfortunately, we cannot do recurrent prescriptions for these from the ER. BETY RICE MD Mar 27, 2023 16:25
[2023-03-27 16:30] VITALS: BP 115/89
[2023-03-27] MEDS ORDERED: ORPHENADRINE 60 MG/2 ML AMP (ED ONLY) IM ONE (16:30)
[2023-03-27] MEDS ORDERED: HYDROcodone/ACETAMINOPHEN 5 MG/325 MG TABLET PO ONE (16:30)
== END 2023-03-27 16:31 | disposition home or self-care (01) ==
LOC: EDUNIT# 16:04 → ER FS 16:06
DX: M62.830 Muscle spasm of back (principal); F17.210 Nicotine dependence, cigarettes, uncomplicated; Z98.890 Other specified postprocedural states; Z28.310 Unvaccinated for COVID-19
CPT/HCPCS: 99284

== ENCOUNTER 2023-03-31 13:49 | Emergency (ER) | payer MEDICARE, MEDICAID ==
[~2023-03-31] VITALS: Ht 162 cm; Wt 73.0 kg
[2023-03-31 14:07] VITALS: BP 142/81
--- NOTE | 2023-03-31 14:08 | ED Back Pain ---
General Chief Complaint: Back Problems Stated Complaint: BACK PAIN History of Present Illness Date Seen by Provider: Mar 31, 2023 Time Seen by Provider: 13:58 Initial Comments 63 yr F with chronic back pain with multiple ER visits is here with c/o back pain and wants medication. Pt prefers narcotic medication because she reports that Tylenol and Ibuprofen does not help.Denies bowel and bladder dysfunction, falls, trauma, fever, numbness. Pt able to walk without any issues. Allergies and Home Medications Allergies Coded Allergies: Penicillins (Verified Allergy, Unknown, 01/12/23) azithromycin (Verified Allergy, Unknown, 01/12/23) cefaclor (Verified Allergy, Unknown, 01/12/23) cephalexin (Verified Allergy, Unknown, 01/12/23) dexamethasone (Verified Allergy, Unknown, 01/12/23) erythromycin base (Verified Allergy, Unknown, 01/12/23) levofloxacin (Verified Allergy, Unknown, 01/12/23) methylprednisolone (Verified Allergy, Unknown, 01/12/23) tetracycline (Verified Allergy, Unknown, 01/12/23) Patient Home Medication List Home Medication List Reviewed: Yes Albuterol Sulfate (Ventolin Hfa) 1 Puff Puff, 2 PUFF IH Q4H Prescribed by: FREDRICK MOORE on 02/06/19 0303 Azithromycin (Zithromax) 250 Mg Tablet, 250 MG PO UD Prescribed by: FREDRICK LEOS on 08/30/19 1434 Clonazepam (Clonazepam) 0.5 Mg Tablet, (Reported) Entered as Reported by: RAMONA GARCIA on 04/22/17 1320 Dicyclomine HCl (Dicyclomine HCl) 20 Mg Tablet, 20 MG PO QID Prescribed by: BRAYAN GOVEA on 03/13/20 1906 Doxycycline Hyclate (Doxycycline Hyclate) 100 Mg Tablet, 100 MG PO BID Prescribed by: FREDRICK MOORE on 02/06/19 0306 Gabapentin (Gabapentin) 300 Mg Capsule, (Reported) Entered as Reported by: RAMONA GARCIA on 04/22/17 1320 Hydrocodone Bit/Acetaminophen (HYDROcodone/APAP 10/325 TABLET) 1 Each Tablet, (Reported) Entered as Reported by: RAMONA GARCIA on 04/22/17 1320 Hydrocodone/Acetaminophen (Hydrocodone-Acetamin 5-325 mg) 5 Mg-325 Mg Tablet, 1 TAB PO Q4H PRN for PAIN-MODERATE (5-7) Prescribed by: BRAYAN GOVEA on 06/14/22 1357 Hydrocodone/Acetaminophen (Hydrocodone-Acetamin 5-325 mg) 5 Mg-325 Mg Tablet, 1 TAB PO Q4H PRN for PAIN SEVERE Prescribed by: MACARENA CLARKE on 03/17/23 1249 Lidocaine (Lidocaine 5% Patch) 1 Each Adh..patch, 1 EACH TP Q12H PRN for Neuropathic pain Prescribed by: BETY RICE on 08/23/21 0639 Methylprednisolone (Medrol Dose pack) 4 Mg Tab, 4 MG PO UD Prescribed by: BRAYAN GOVEA on 05/02/22 1149 Ondansetron (Ondansetron Odt) 4 Mg Tab.rapdis, 4 MG SL Q4H PRN for NAUSEA/VOMITING Prescribed by: BRAYAN GOVEA on 05/02/22 1149 Orphenadrine Citrate (Orphenadrine Citrate) 100 Mg Tablet.er, 100 MG PO BID Prescribed by: MACARENA CLARKE on 05/28/19 220 Prednisone (Prednisone) 10 Mg Tab.ds.pk, 10 MG PO DAILY Prescribed by: FREDRICK MOORE on 02/06/19 0302 Prednisone (Prednisone) 20 Mg Tab, 60 MG PO DAILY Prescribed by: FREDRICK LEOS on 08/30/19 1434 Promethazine HCl (Promethazine Tablet) 25 Mg Tablet, 25 MG PO Q6H PRN for NAUSEA/VOMITING Prescribed by: MACARENA CLARKE on 10/25/22 1119 Promethazine HCl (Promethazine Suppository) 25 Mg Supp.rect, 25 MG RC Q6H PRN for NAUSEA-2ND LINE Prescribed by: MACARENA CLARKE on 10/25/22 1119 Quetiapine Fumarate (Quetiapine Fumarate) 200 Mg Tablet, (Reported) Entered as Reported by: RAMONA GARCIA on 04/22/17 1320 Sertraline HCl (Sertraline HCl) 100 Mg Tablet, (Reported) Entered as Reported by: RAMONA GARCIA on 04/22/17 1320 Sulfamethoxazole/Trimethoprim (Bactrim Ds Tablet) 1 Each Tablet, 1 EACH PO BID Prescribed by: MACARENA CLARKE on 08/10/19 1929 Sulfamethoxazole/Trimethoprim (Sulfamethoxazole-Tmp Ss Tablet) 1 Each Tablet, 1 EACH PO BID Prescribed by: MACARENA CLARKE on 06/09/21 1620 Sulfamethoxazole/Trimethoprim (Bactrim Ds Tablet) 800 Mg-160 Mg Tablet, 1 EACH PO BID Prescribed by: MACARENA SOLARESRT on 08/20/22 1635 [Flexeril] , 10 twice a day Prescribed by: BRISEIDA WILL on 04/22/17 1511 Review of Systems Constitutional: no symptoms reported Musculoskeletal: see HPI, muscle pain Past Cspkvgg-Lviban-Qtnwgb Hx Immunizations Up To Date First/Initial COVID19 Vaccinat: Denies Second COVID19 Vaccination Bandar: Denies Third COVID19 Vaccination Date: Denies Seasonal Allergies Seasonal Allergies: No Past Medical History Surgery/Hospitalization HX: DIVERTICULITIS Surgeries: Yes (BACK SX) Appendectomy, Brain Shunt, Hysterectomy, Orthopedic Respiratory: No (Tobaccoism) COPD Cardiac: Yes Heart Attack, Hypertension 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, has brain shunt) [employer]OR [employer] History: Hysterectomy Genitourinary: No Gastrointestinal: Yes (Hep C history ") Gastroesophageal Reflux, Diverticulosis, Hepatitis Musculoskeletal: Yes (Chronic pain- Buprenorphine) Arthritis, Chronic Back Pain Endocrine: No HEENT: No Cancer: No Psychosocial: Yes Anxiety, Bipolar, Depression Integumentary: No Blood Disorders: No Adverse Reaction/Blood Tranf: No Family Medical History No Pertinent Family Hx Physical Exam Vital Signs Vital Signs - First Documented 03/31/23 14:07 Temp 37.1 Pulse 74 Resp 20 B/P (MAP) 142/81 (101) Pulse Ox 97 O2 Delivery Room Air Capillary Refill : Height, Weight, BMI Height: 5'4.00" Weight: 170lbs. oz. 77.378388rn; 27.00 BMI Method:Stated General Appearance: WD/WN, Mild Distress HEENT: PERRL/EOMI Neck: Full Range of Motion, Normal Inspection, Non Tender, Supple Back: Normal Inspection, No CVA Tenderness, No Vertebral Tenderness, Muscle Spasm (bilateral lumbar area) Extremity: Normal Inspection, Normal Range of Motion, Non Tender Neurologic/Psychiatric: Alert, Oriented x3, No Motor/Sensory Deficits Skin: Normal Color Progress/Results/Core Measures Results/Orders My Orders Orders - XAVI ANNE MD Ketorolac Injection (Ketorolac Injection (03/31/23 14:45) Vital Signs/I&O 03/31/23 14:07 Temp 37.1 Pulse 74 Resp 20 B/P (MAP) 142/81 (101) Pulse Ox 97 O2 Delivery Room Air Progress Progress Note : Progress Note 1. CHRONIC BACK PAIN: - Toradol injection - Pt left AMA because she wants a narcotic. Departure Impression Primary Impression: Chronic back pain Additional Impression: Left against medical advice Disposition: AGAINST MEDICAL ADVICE Condition: Against Medical Advice Departure-Patient Inst. Referrals: TARUN LACY DO (PCP/Family) Primary Care Physician XAVI ANNE MD Mar 31, 2023 14:08
[2023-03-31] MEDS ORDERED: KETOROLAC INJ 30 MG/ML VIAL IM ONE (14:45)
== END 2023-03-31 15:10 | disposition left against medical advice (07) ==
LOC: EDUNIT# 13:49 → ER FS 13:50
DX: M54.50 Low back pain, unspecified (principal); G89.29 Other chronic pain; Z98.890 Other specified postprocedural states
CPT/HCPCS: 99281

== ENCOUNTER 2023-04-17 15:34 | Emergency (ER) | payer MEDICARE, MEDICAID ==
[2023-04-17] MEDS ORDERED: KETOROLAC INJ 60 MG/2 ML VIAL IM ONE (15:45)
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
--- NOTE | 2023-04-17 16:16 | Diagnostic Imaging Report ---
EXAMINATION: CT head without contrast. TECHNIQUE: Multiple contiguous axial images were obtained through the brain without the use of intravenous contrast. All CT scans use one or more of the following dose optimizing techniques: Automated exposure control, MA and/or KvP adjustment based on patient size and exam type or iterative reconstruction. HISTORY: Headache. COMPARISON: None available. FINDINGS: The ventricles and sulci are normal. No abnormal attenuation of brain parenchyma is present. Tiny chronic lacunar infarct versus prominent perivascular space along the left external capsule. No acute intracranial hemorrhage or abnormal extra-axial fluid collections are present. Calcification of the intracranial ICAs. No hyperdense vessel. Surgical changes of the posterior right occipital calvarium. The mastoid air cells are clear. The visualized paranasal sinuses are clear. The orbits are normal. IMPRESSION: 1. No acute intracranial abnormality. Dictated by: Dictated on workstation # [id number]
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
[2023-04-17 17:29] VITALS: BP 104/56
== END 2023-04-17 17:29 | disposition home or self-care (01) ==
LOC: EDUNIT# 15:34 → ER FS 15:35
DX: M54.50 Low back pain, unspecified (principal); G89.29 Other chronic pain; R51.9 Headache, unspecified; F17.210 Nicotine dependence, cigarettes, uncomplicated; Z98.890 Other specified postprocedural states; Z28.310 Unvaccinated for COVID-19; V48.5XXA Car driver injured in noncollision transport accident in traffic accident, initial encounter; Y92.410 Unspecified street and highway as the place of occurrence of the external cause
CPT/HCPCS: 70450; 72131

== ENCOUNTER 2023-04-18 12:24 | Emergency (ER) | payer MEDICARE, MEDICAID ==
[~2023-04-18] VITALS: Ht 162 cm; Wt 75.0 kg
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
[2023-04-18] MEDS ORDERED: KETOROLAC INJ 30 MG/ML VIAL IM ONE (13:00)
[2023-04-18 13:36] VITALS: BP 137/62
== END 2023-04-18 13:36 | disposition home or self-care (01) ==
LOC: EDUNIT# 12:24 → ER FS 12:26
DX: M54.50 Low back pain, unspecified (principal); M54.6 Pain in thoracic spine; G89.29 Other chronic pain; Z98.890 Other specified postprocedural states; Z28.310 Unvaccinated for COVID-19
CPT/HCPCS: 99284

== ENCOUNTER 2023-04-21 11:10 | Emergency (ER) | payer MEDICARE, MEDICAID ==
[~2023-04-21] VITALS: Ht 162 cm; Wt 75.0 kg
[2023-04-21 11:15] VITALS: BP 141/70
[2023-04-21] MEDS ORDERED: ONDANSETRON 4 MG ORAL DISSOLVE TABLET PO STA (11:35)
[2023-04-21] MEDS ORDERED: KETOROLAC INJ 60 MG/2 ML VIAL IM ONE (11:45)
[2023-04-21] MEDS ORDERED: OXAP600T PO (11:58)
[2023-04-21] MEDS ORDERED: ONDA4TAB11 PO (11:58)
[2023-04-21] MEDS ORDERED: CYCL10TA25 PO (11:58)
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
== END 2023-04-21 12:08 | disposition home or self-care (01) ==
LOC: EDUNIT# 11:10 → ER FS 11:11
DX: M54.50 Low back pain, unspecified (principal); G89.29 Other chronic pain; K59.00 Constipation, unspecified; F17.210 Nicotine dependence, cigarettes, uncomplicated; Z28.310 Unvaccinated for COVID-19
CPT/HCPCS: 99284

== ENCOUNTER 2023-04-27 12:40 | Emergency (ER) | payer OTHER, MEDICARE, MEDICAID ==
[~2023-04-27 12:40] MED LIST changes: +CYCL10TA25 PO; +ONDA4TAB11 PO; +OXAP600T PO
[2023-04-27] MEDS ORDERED: KETOROLAC INJ 60 MG/2 ML VIAL IM STA (13:01)
[2023-04-27] MEDS ORDERED: ORPHENADRINE 60 MG/2 ML AMP (ED ONLY) IM STA (13:01)
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
[2023-04-27 13:54] VITALS: BP 131/76
== END 2023-04-27 13:54 | disposition home or self-care (01) ==
LOC: EDUNIT# 12:40 → ER FS 12:41
DX: M54.50 Low back pain, unspecified (principal); G89.29 Other chronic pain; F17.210 Nicotine dependence, cigarettes, uncomplicated; Z79.891 Long term (current) use of opiate analgesic; Z98.890 Other specified postprocedural states; Z71.6 Tobacco abuse counseling
CPT/HCPCS: 99284

== ENCOUNTER → 2023-05-21 | Outpatient (CLI) | payer MEDICARE, MEDICAID ==
--- NOTE | 2023-05-21 16:58 | Diagnostic Imaging Report ---
PROCEDURE: MRI lumbar spine. TECHNIQUE: Multiplanar, multisequence MRI of the lumbar spine was performed without contrast. INDICATION: Low back pain COMPARISON: CT from 04/17/2023 FINDINGS: There is posterior fusion of the lumbar spine from L4 down to S1 with interbody disc spacers. There is surrounding susceptibility artifact. Laminectomy changes are noted. There is a severe compression deformity of L1 with 70% height loss and edema throughout the vertebral body. There is mild retropulsion of about 2 mm. No other compression fractures are seen. There is grade 1 anterolisthesis at L3-L4. 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 There is generalized muscular atrophy. There are cysts in the left kidney and there is a cyst at the pancreatic tail, which appears similar to December 2021 CT abdomen and pelvis. Thickened and nodular adrenal glands are also noted. There is a small fluid collection posterior to the left liver measuring about 1 x 0.7 cm in size. There is atherosclerosis in the aorta. T11-T12: Mild disc bulge. No spinal canal or foraminal stenosis. T12-L1: Mild disc bulge. Facet arthropathy and ligamentous infolding. Mild spinal canal narrowing. Mild right and moderate left foraminal stenosis. L1-L2: Diffuse disc bulge and facet arthropathy and ligamentous infolding. Mild to moderate spinal canal stenosis. Severe left and moderate right foraminal stenosis. L2-L3: Diffuse disc bulge and facet arthropathy. Mild spinal canal narrowing. Moderate bilateral foraminal stenosis. L3-L4: Anterolisthesis and diffuse disc bulge and facet arthropathy and ligamentous infolding. Moderate to severe spinal canal stenosis with narrowing of the lateral recesses bilaterally. Severe bilateral foraminal stenosis. L4-L5: Postsurgical changes. No spinal canal stenosis. Mild right and moderate left foraminal stenosis. L5-S1: Mild disc bulge. No spinal canal stenosis. Mild left foraminal narrowing. No right foraminal stenosis. IMPRESSION: 1. Burst fracture of L1 with marked height loss, new since 04/17/2023. There is mild retropulsion. 2. Postsurgical changes and multilevel degenerative changes in the lumbar spine. There is moderate to severe spinal canal stenosis at L3-L4. There is multilevel foraminal stenosis, most severe at L1-L2 and L3-L4. 3. Small cystic structure posterior to the right liver in the abdomen. This is indeterminate, but appears to have been present on the prior CT. This could represent a small exophytic hepatic cyst or may be from prior surgical changes. 4. Additional chronic abdominal findings including thickened nodularity of the adrenal glands as well as a pancreatic tail cyst. Dictated by: Dictated on workstation # [id number]
== END ==
LOC: RAD 13:38
PROVIDERS: ATTEND Nurse Practitioner Family
DX: M47.816 Spondylosis without myelopathy or radiculopathy, lumbar region (principal); M48.061 Spinal stenosis, lumbar region without neurogenic claudication; S32.011D Stable burst fracture of first lumbar vertebra, subsequent encounter for fracture with routine healing; F11.20 Opioid dependence, uncomplicated; E27.9 Disorder of adrenal gland, unspecified; K86.2 Cyst of pancreas; X58.XXXD Exposure to other specified factors, subsequent encounter
CPT/HCPCS: 72148

== ENCOUNTER 2023-06-04 14:38 | Emergency (ER) | payer OTHER, MEDICARE, MEDICAID ==
[~2023-06-04] VITALS: Ht 162 cm; Wt 73.0 kg
--- NOTE | 2023-06-04 14:55 | ED Back Pain ---
General Chief Complaint: Back Problems Stated Complaint: BACK PAIN Nursing Triage Note: PT REPORTS HER CHRONIC BACK PAIN IS HURTING TODAY. SHE REPORTS NONE OF HER MEDS ARE WORKING. SHE REPORTS SHE HAS AN APPT THIS THURSDAY WITH ORTHO 4 STATES. History of Present Illness Date Seen by Provider: Jun 04, 2023 Time Seen by Provider: 14:48 Initial Comments 63-year-old female with PMH of chronic back pain/multiple medication allergies/frequent visits to the ER for back pain medications, is here with complaints of back pain, and is requesting for pain relief. Patient is on multiple medications given by her pain management doctor. Patient has an Ortho appointment on Thursday. Denies bladder or bowel dysfunction, sensory loss, recent falls or injuries. Allergies and Home Medications Allergies Coded Allergies: Penicillins (Verified Allergy, Unknown, 01/12/23) azithromycin (Verified Allergy, Unknown, 01/12/23) cefaclor (Verified Allergy, Unknown, 01/12/23) cephalexin (Verified Allergy, Unknown, 01/12/23) dexamethasone (Verified Allergy, Unknown, 01/12/23) erythromycin base (Verified Allergy, Unknown, 01/12/23) levofloxacin (Verified Allergy, Unknown, 01/12/23) methylprednisolone (Verified Allergy, Unknown, 01/12/23) tetracycline (Verified Allergy, Unknown, 01/12/23) Patient Home Medication List Home Medication List Reviewed: Yes Albuterol Sulfate (Ventolin Hfa) 1 Puff Puff, 2 PUFF IH Q4H Prescribed by: FREDRICK MOORE on 02/06/19 0303 Azithromycin (Zithromax) 250 Mg Tablet, 250 MG PO UD Prescribed by: FREDRICK LEOS on 08/30/19 1434 Clonazepam (Clonazepam) 0.5 Mg Tablet, (Reported) Entered as Reported by: RAMONA GARCIA on 04/22/17 1320 Cyclobenzaprine HCl (Cyclobenzaprine HCl) 10 Mg Tablet, 10 MG PO Q8H PRN for SPASMS Prescribed by: Gaby miller on 04/21/23 1158 Dicyclomine HCl (Dicyclomine HCl) 20 Mg Tablet, 20 MG PO QID Prescribed by: BRAYAN GOVEA on 03/13/20 1906 Doxycycline Hyclate (Doxycycline Hyclate) 100 Mg Tablet, 100 MG PO BID Prescribed by: FREDRICK MOORE on 02/06/19 0306 Gabapentin (Gabapentin) 300 Mg Capsule, (Reported) Entered as Reported by: RAMONA GARCIA on 04/22/17 1320 Hydrocodone Bit/Acetaminophen (HYDROcodone/APAP 10/325 TABLET) 1 Each Tablet, (Reported) Entered as Reported by: RAMONA GARCIA on 04/22/17 1320 Hydrocodone/Acetaminophen (Hydrocodone-Acetamin 5-325 mg) 5 Mg-325 Mg Tablet, 1 TAB PO Q4H PRN for PAIN-MODERATE (5-7) Prescribed by: BRAYAN GOVEA on 06/14/22 1357 Hydrocodone/Acetaminophen (Hydrocodone-Acetamin 5-325 mg) 5 Mg-325 Mg Tablet, 1 TAB PO Q4H PRN for PAIN SEVERE Prescribed by: MACARENA CLARKE on 03/17/23 1249 Lidocaine (Lidocaine 5% Patch) 1 Each Adh..patch, 1 EACH TP Q12H PRN for Neuropathic pain Prescribed by: BETY RICE on 08/23/21 0639 Methylprednisolone (Medrol Dose pack) 4 Mg Tab, 4 MG PO UD Prescribed by: BRAYAN GOVEA on 05/02/22 1149 Ondansetron (Ondansetron Odt) 4 Mg Tab.rapdis, 4 MG SL Q4H PRN for NAUSEA/VOMITING Prescribed by: BRAYAN GOVEA on 05/02/22 1149 Ondansetron (Ondansetron Odt) 4 Mg Tab.rapdis, 4 MG PO TID PRN for NAUSEA-1ST LINE Prescribed by: Gaby miller on 04/21/23 1158 Orphenadrine Citrate (Orphenadrine Citrate) 100 Mg Tablet.er, 100 MG PO BID Prescribed by: MACARENA CLARKE on 05/28/19 2208 Oxaprozin (Daypro) 600 Mg Tablet, 600 MG PO BID Prescribed by: Gaby miller on 04/21/23 1158 Prednisone (Prednisone) 10 Mg Tab.ds.pk, 10 MG PO DAILY Prescribed by: FREDRICK MOORE on 02/06/19 0302 Prednisone (Prednisone) 20 Mg Tab, 60 MG PO DAILY Prescribed by: FREDRICK LEOS on 08/30/19 1434 Promethazine HCl (Promethazine Tablet) 25 Mg Tablet, 25 MG PO Q6H PRN for NAUSEA/VOMITING Prescribed by: MACARENA CLARKE on 10/25/22 1119 Promethazine HCl (Promethazine Suppository) 25 Mg Supp.rect, 25 MG RC Q6H PRN for NAUSEA-2ND LINE Prescribed by: MACARENA CLARKE on 10/25/22 1119 Quetiapine Fumarate (Quetiapine Fumarate) 200 Mg Tablet, (Reported) Entered as Reported by: RAMONA GARCIA on 04/22/17 1320 Sertraline HCl (Sertraline HCl) 100 Mg Tablet, (Reported) Entered as Reported by: RAMONA GARCIA on 04/22/17 1320 Sulfamethoxazole/Trimethoprim (Bactrim Ds Tablet) 1 Each Tablet, 1 EACH PO BID Prescribed by: MACARENA CLARKE on 08/10/19 1929 Sulfamethoxazole/Trimethoprim (Sulfamethoxazole-Tmp Ss Tablet) 1 Each Tablet, 1 EACH PO BID Prescribed by: MACARENA CLARKE on 06/09/21 1620 Sulfamethoxazole/Trimethoprim (Bactrim Ds Tablet) 800 Mg-160 Mg Tablet, 1 EACH PO BID Prescribed by: MACARENA CLARKE on 08/20/22 1635 [Flexeril] , 10 twice a day Prescribed by: BRISEIDA WILL on 04/22/17 1511 Review of Systems Constitutional: no symptoms reported Musculoskeletal: back pain Past Suzklhb-Xyvmmz-Mbexcb Hx Patient Social History Tobacco Use?: Yes Tobacco type used: Cigarettes Smoking Status: Current Everyday Smoker Use of E-Cig and/or Vaping dev: No Substance use?: Yes Substance type: Other Additional substance use comme: CBD GUMMIES Substance frequency: Daily Alcohol Use?: No Pt feels they are or have been: No Immunizations Up To Date First/Initial COVID19 Vaccinat: Denies Second COVID19 Vaccination Bandar: Denies Third COVID19 Vaccination Date: Denies Seasonal Allergies Seasonal Allergies: No Past Medical History Surgery/Hospitalization HX: DIVERTICULITIS Surgeries: Yes (BACK SX) Appendectomy, Brain Shunt, Hysterectomy, Orthopedic Respiratory: No (Tobaccoism) COPD Cardiac: Yes Heart Attack, Hypertension 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, has brain shunt) 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 Genitourinary: No Gastrointestinal: Yes (Hep C history ") Gastroesophageal Reflux, Diverticulosis, Hepatitis Musculoskeletal: Yes (Chronic pain- Buprenorphine) Arthritis, Chronic Back Pain Endocrine: No HEENT: No Cancer: No Psychosocial: Yes Anxiety, Bipolar, Depression Integumentary: No Blood Disorders: No Adverse Reaction/Blood Tranf: No Family Medical History No Pertinent Family Hx Physical Exam Vital Signs Vital Signs - First Documented 06/04/23 14:40 Temp 36.7 Pulse 81 Resp 16 B/P (MAP) 140/73 (95) Pulse Ox 96 O2 Delivery Room Air Capillary Refill : Less Than 3 Seconds Height, Weight, BMI Height: 5'4.00" Weight: 170lbs. oz. 77.737396rt; 27.00 BMI Method:Stated General Appearance: No Apparent Distress, WD/WN HEENT: PERRL/EOMI Neck: Normal Inspection Back: Normal Inspection, No Vertebral Tenderness, Muscle Spasm (Bilateral diffuse paraspinal muscle spasm present), Other (No saddle anesthesia, straight leg test bilaterally is negative) Extremity: Normal Range of Motion Neurologic/Psychiatric: Alert, Oriented x3, No Motor/Sensory Deficits Skin: Normal Color Progress/Results/Core Measures Results/Orders My Orders Orders - XAVI ANNE MD Ketorolac Injection (Ketorolac Injection (06/04/23 15:45) Vital Signs/I&O 06/04/23 14:40 Temp 36.7 Pulse 81 Resp 16 B/P (MAP) 140/73 (95) Pulse Ox 96 O2 Delivery Room Air Blood Pressure Mean: 95 Progress Progress Note : Progress Note CHRONIC BACK PAIN: -No red flags for cord compression -Toradol IM stat -Patient has an Ortho appointment on Thursday, advised patient to keep it. -Follow-up with pain management clinic -Continue with medications as prescribed by Ortho and pain management. -The patient was seen in the ED, and treated appropriately to presentation at a specific point in time. Patient is informed that there is a possibility that disease and illness can evolve and change in acuity rapidly or slowly after patient is discharged from the ER. Precautionary advice given to the patient for immediate return to ER if symptoms worsen or do not resolve, and to seek emergency care sooner rather than later. Pt also advised on the importance of PCP follow up and compliance with management and follow up plan with PCP and/or specialist, as this is part of the management plan. Pt verbally expressed understanding. Departure Impression Primary Impression: Chronic back pain Disposition: HOME, SELF-CARE Condition: Stable Departure-Patient Inst. Referrals: TARUN LACY DO (PCP/Family) Primary Care Physician Patient Instructions: MANAGING YOUR CHRONIC PAIN, Low Back Pain (DC) Add. Discharge Instructions: -Patient has an Ortho appointment on Thursday, advised patient to keep it. -Follow-up with pain management clinic -Continue with medications as prescribed by Ortho and pain management. All discharge instructions reviewed with patient and/or family. Voiced understanding. XAVI ANNE MD Jun 04, 2023 14:55
[2023-06-04 15:41] VITALS: BP 140/73
[2023-06-04] MEDS ORDERED: KETOROLAC INJ 30 MG/ML VIAL IM ONE (15:45)
== END 2023-06-04 15:42 | disposition home or self-care (01) ==
LOC: EDUNIT# 14:38 → ER FS 14:39
DX: G89.29 Other chronic pain (principal); M54.9 Dorsalgia, unspecified; F17.210 Nicotine dependence, cigarettes, uncomplicated
CPT/HCPCS: 99284